=== PATIENT | female | born 1935 | race Caucasian/White ===

== ENCOUNTER 2023-11-30 20:18 | Inpatient (IN) | payer MEDICARE, OTHER, SELFPAY ==
[2023-11-30 20:20] VITALS: BP 102/52; PULSE 73; RESP 18; TEMP 36.6; O2SAT 99
[2023-11-30 20:27] VITALS: BP 102/52; PULSE 73; RESP 18; TEMP 36.6; O2SAT 99; BMI 26.7
--- OUTSIDE RECORDS SUMMARY | 2023-11-30 21:37 | XMS RPT_ITS | CCD ---
Author Name Unknown Address [address] [place] [address] Organization [facility] Care Team Providers [facility] [employer] Name Role Phone EREN GARCIA Attending Unavailable Nigel Frye Primary Care Provider Nigel Frye Primary Care Provider Nigel Frye MD Primary Care Provid er Nigel Frye MD Primary Care Provid er Nigel Frye MD Primary Care Provider [phone] Nigel Frye MD Primary Care Provider [phone] Delonte Mandujano MD Primary Care Provider Nigel Frye MD Primary Care Provider [phone] LAURA CROWE Attending Unavailable NIGEL FRYE Primary Care Unavailable DELONTE MANDUJANO Attending Unavailable DELONTE MANDUJANO Primary Care Unavailable NIGEL FRYE Attending Unavailable NIGEL FRYE Primary Care Unavailable LUIS A KISER Referring Unavailable NIGEL FRYE Primary Care Unavailable NIGEL FRYE Primary Care Unavailable LUIS A KISER Attending Unavailable Allergies Allergy Classification Reported Allergen(s) Allergy Type Date of Onset Reaction(s) Facility (6 sources) Sulfonamides (Antibiotic) Propensity to adverse reactions to drug 5 [place], [place] (10 sources) Sulfasalazine Allergy to substance 5 Rash [facility] (10 sources) Sulfonamides (Antibiotic) Drug Intolerance 5 Rash, Swelling [facility] Medications Current Medications Medication Drug Class(es) Dates Sig (Normalized) Sig (Original) calcium carbonate 500 mg oral tablet (6 sources) take 1 tablet by analia th once daily calcium carbonate (OSCAL) 500 MG TABS tablet Take 500 mg by mouth daily 0 Active Completed/Discontinued Medications Medication Drug Class(es) Dates Sig (Normalized) Sig (Original) aspirin 81 mg chewable tablet (1 source) Platelet Aggregation Inhibitor, Nonsteroidal Anti-inflammatory Drug Start: 06-07-2023 End: 06-07-2023 aspirin chewable tablet 324 mg atorvastatin 40 mg oral tablet (18 sources) HMG-CoA Reductase Inhibitor Start: 03-12-2023 End: 06-11-2023 take 1 tablet by mouth once daily atorvastatin (Lipitor) 40 MG tablet Take 40 mg by mouth daily. 0 03/12/2023 06/11/2023 Discontinued (Med list cleanup) Problems Active Problems Problem Classification Problem Date Documented Date Episodic/Chronic Administrative/social admission (1 source) Patient encounter status; Translations: [Persons encountering health services in other specified circumstances] 06-11-2023 Episodic Diabetes mellitus with complications (11 sources) Neuropathy due to type 2 diabetes mellitus; Translations: [Type 2 diabetes mellitus with diabetic neuropathy, unspecified] Onset: 03-26-2023 03-26-2023 Chronic Disorders of lipid metabolism (14 sources) Hyperlipidemia; Translations: [Hyperlipidemia, unspecified] Onset: 06-11-2023 06-11-2023 Chronic E Codes: Fall (1 source) Fall; Translations: [Unspecified fall, initial encounter] Episodic Glaucoma (9 sources) Glaucoma; Translations: [Unspecified glaucoma] Onset: 06-11-2023 06-11-2023 Chronic Hypertension with complications and secondary hypertension (3 sources) Chronic kidney disease due to hypertension; Translations: [Hypertensive chronic kidney disease with stage 1 through stage 4 chronic kidney disease, or unspecified chronic kidney disease] Onset: 03-26-2023 03-26-2023 Chronic Nonmalignant breast conditions (17 sources) Fibrosclerosis of breast; Translations: [Fibrosclerosis of unspecified breast] Onset: 11-01-2015 11-01-2015 Chronic Other injuries and conditions due to external causes (1 source) Injury of head; Translations: [Unspecified injury of head, initial encounter] Episodic Other liver diseases (4 sources) Portal hypertension; Translations: [Portal hypertension] Onset: 06-30-2023 06-30-2023 Chronic Residual codes; unclassified (1 source) Edema of foot; Translations: [Localized edema] 06-07-2023 Episodic Residual codes; unclassified (1 source) Dependent edema; Translations: [Edema, unspecified] 06-11-2023 Episodic Sprains and strains (1 source) Sprain of talofibular ligament of right ankle; Translations: [Sprain of other ligament of right ankle, initial encounter] Episodic Thyroid disorders (14 sources) Acquired hypothyroidism; Translations: [Hypothyroidism, unspecified] Onset: 06-11-2023 06-11-2023 Chronic Past or Other Problems Problem Classification Problem Date Documented Da te Episodic/Chronic Residual codes; unclassified (2 sources) Edema, unspecified; Translations: [Edema, unspecified] Onset: 06-11-2023 Episodic Residual codes; unclassified (2 sources) Localized edema; Translations: [Localized edema] Onset: 06-07-2023 Episodic Results Test Name Value Interpretation Reference Range Facil ity Vital Signs Date Time Vital Sign Value Performing Clinician Faci lity 06-30-2023 13:48-0400 Body height 157.5 cm Delonte Mandujano MD Work Phone: [employer] 06-30-2023 13:48-0400 Body mass index (BMI) [Ratio] 21.62 kg/m2 Delonte Mandujano MD Work Phone: [employer] 06-30-2023 13:48-0400 Body weight 53.62 kg Delonte Mandujano MD Work Phone: [employer] 06-30-2023 13:48-0400 Diastolic blood pressure 66 mm[Hg] Delonte Mandujano MD Work Phone: [employer] 06-30-2023 13:48-0400 Heart rate 75 /min Delonte Mandujano MD Work Phone: [employer] 06-30-2023 13:48-0400 SaO2% (BldA) [Mass fraction] 96 % Delonte Mandujano MD Work Phone: [employer] 06-30-2023 13:48-0400 Systolic blood pressure 121 mm[Hg] Delonte Mandujano MD Work Phone: [employer] 06-11-2023 09:19-0400 Body height 157.5 cm Laura Crowe USED [employer] WORK[employer] - [employer]ER Work Phone: [facility] [employer] 06-11-2023 09:19-0400 Body mass index (BMI) [Ratio] 20.67 kg/m2 Laura Crowe USED [employer]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[employer]ARD WORKER - [employer] FE[employer] Work Phone: [facility] [employer] 06-11-2023 09:19-0400 Body weight 51.26 kg Laura Crowe USED [employer]ARD WORKER - [employer]ER Work Phone: [facility] [employer] 06-11-2023 09:19-0400 Diastolic blood pressure 64 mm[Hg] Laura Crowe USED [employer] WORKER - [employer] FE[employer]ER Work Phone: [facility] [employer] 06-11-2023 09:19-0400 Heart rate 78 /min Laura Crowe USED BUILD[employer]ARD WORKER - [employer] FEEDER Work Phone: [facility] [employer] 06-11-2023 09:19-0400 SaO2% (BldA) [Mass fraction] 98 % Laura Crowe USED [employer]ARD WORKER - [employer]ER Work Phone: [facility] [employer] 06-11-2023 09:19-0400 Systolic blood pressure 122 mm[Hg] Laura Crowe USED [employer] WORKER - [employer]ER Work Phone: [facility] [employer] 06-07-2023 16:53-0400 Body temperature 97.81 [degF] Luis A Kiser MD Work Phone: [facility] [employer] 06-07-2023 16:53-0400 Diastolic blood pressure 55 mm[Hg] Luis A Kiser MD Work Phone: [facility] [employer] 06-07-2023 16:53-0400 Heart rate 77 /min Luis A Kiser MD Work Phone: [facility] [employer] 06-07-2023 16:53-0400 Respiratory rate 18 /min Luis A Kiser MD Work Phone: [facility] [employer] 06-07-2023 16:53-0400 SaO2% (BldA) [Mass fraction] 97 % Luis A Kiser MD Work Phone: [facility] [employer] 07-10-2023 16:53-0400 Systolic blood pressure 140 mm[Hg] Luis A Kiser MD Work Phone: [facility] 06-16-2022 12:24-0400 Diastolic blood pressure 59 mm[Hg] Cesar Gellis DO Work Phone: [facility] 06-16-2022 12:24-0400 Heart rate 66 /min Cesar Gellis DO Work Phone: [facility] 06-16-2022 12:24-0400 Respiratory rate 16 /min Cesar Gellis DO Work Phone: [facility] 06-16-2022 12:24-0400 SaO2% (BldA) [Mass fraction] 98 % Cesar Joneslis DO Work Phone: [facility] 06-16-2022 12:24-0400 Systolic blood pressure 120 mm[Hg] Cesar Gellis DO Work Phone: [facility] 06-16-2022 12:03-0400 Body temperature 97.39 [degF] Cesar Joneslis DO Work Phone: [facility] 11-16-2021 18:28-0500 Body height 154.9 cm Mark Saravia MD Work Phone: [facility] 11-16-2021 18:28-0500 Body mass index (BMI) [Ratio] 26.45 kg/m2 Mark Saravia MD Work Phone: [facility] 11-16-2021 18:28-0500 Body temperature 98.4 [degF] Mark Saravia MD Work Phone: [facility] 11-16-2021 18:28-0500 Body weight 63.5 kg Mark Saravia MD Work Phone: [facility] 11-16-2021 18:28-0500 Diastolic blood pressure 64 mm[Hg] Mark Saravia MD Work Phone: [facility] 11-16-2021 18:28-0500 Heart rate 80 /min Mark Saravia MD Work Phone: [facility] 11-16-2021 18:28-0500 Respiratory rate 20 /min Mark Saravia MD Work Phone: [facility] 11-16-2021 18:28-0500 SaO2% (BldA) [Mass fraction] 100 % Mark Saravia MD Work Phone: [facility] 11-16-2021 18:28-0500 Systolic blood pressure 149 mm[Hg] Mark Saravia MD Work Phone: [facility] Encounters Encounter Date Encounter Type Care Provider Facility Start: 11-18-2023 Refill Delonte Mandujano MD Work Phone: [facility] Start: 09-08-2023 Refill Delonte Mandujano MD Work Phone: [facility] Start: 06-30-2023 End: 06-30-2023 ambulatory [facility] Start: 06-30-2023 End: 06-30-2023 Encounter for general adult medical examination without abnormal findings [facility] Start: 06-30-2023 End: 06-30-2023 Office outpatient visit 25 minutes Delonte Mandujano MD Work Phone: [facility] Procedures Date Procedure Procedure Detail Performing Clinician Start: 06-29-2023 Adult depression screening assessment Delonte Mandujano MD Work Phone: Start: 06-07-2023 Dup-scan xtr veins complete bilateral study Luis A Kiser MD Work Phone: Start: 06-07-2023 Urinalysis complete panel - Urine Luis A Kiser MD Work Phone: Start: 06-07-2023 Urnls dip stick/tabl et reagent auto microscopy Luis A Kiser MD Work Phone: Start: 06-07-2023 Ecg routine ecg w/le ast 12 lds trcg only w/o i&r Luis A Kiser MD Work Phone: Start: 03-26-2023 Complete blood count with white cell differential, automated Nigel Frye MD Work Phone: Start: 03-26-2023 End: 03-26-2023 General health panel Nigel Frye MD Work Phone: Start: 03-26-2023 Lipid panel Nigel balderas MD Work Phone: Start: 03-26-2023 Lipid 1996 panel - S tiana or Plasma [facility] Start: 03-26-2023 End: 03-26-2023 Thyrotropin [Units/volume] in Serum or Plasma Nigel Frye MD Work Phone: Start: 06-16-2022 [facility] ENDOSCOPY REPORT Phy sician Generic Start: 05-20-2022 Assay of ferritin Layton macias Karenbirdie DO Work Phone: Start: 05-20-2022 Hepatic function panel Cesarjack Rothman DO Work Phone: Start: 05-20-2022 Iaad ia hepatitis b surface antigen Cesar Jonesbirdie DO Work Phone: Start: 11-16-2021 Radex ankle complete minimum 3 views Mark Saravia MD Work Phone: Start: 09-13-2019 Us breast uni real t antony with image limited Iker Diaz Work Phone: Start: 09-13-2019 Diagnostic mammograp hy computer-aided detcj bi Iker Diaz Work Phone: Plan of Treatment Date Care Activity Detail Author Start: 07-10-2024 End: 07-10-2024 Patient encounter procedure 07/10/2024 1:30 PM EDT Office Visit [facility] [address] [facility] [place] [id number] Delonte Mandujano MD [address] [facility] [place] [address] [facility] Start: 08-01-2024 COVID-19 Vaccine (4 - Booster for Moderna series) COVID-19 Vaccine (4 - Booster for Moderna series) [facility] Immunizations Immunization Date Immunization Notes Care Provider Fa marilee 09-21-2022 influenza, high dose seasonal, preservative-free Delonte Mandujano MD Work Phone: [facility] 09-21-2022 influenza virus vacc ine, unspecified formulation Luis A Kiser MD Work Phone: [facility] 08-29-2021 Influenza, Seasonal, Quadrivalent, Adjuvanted Delonte Mandujano MD Work Phone: [facility] 08-18-2020 influenza, injectabl e, quadrivalent, preservative free Delonte Mandujano MD Work Phone: [facility] 09-15-2019 influenza, high dose seasonal, preservative-free Delonte Mandujano MD Work Phone: [facility] 08-19-2018 influenza, high dose seasonal, preservative-free Delonte Mandujano MD Work Phone: [facility] 08-05-2017 influenza, high dose seasonal, preservative-free Delonte Mandujano MD Work Phone: [facility] 10-02-2016 influenza, high dose seasonal, preservative-free Delonte Mandujano MD Work Phone: [facility] 10-03-2015 influenza, high dose seasonal, preservative-free Delonte Mandujano MD Work Phone: [facility] Payers Date Payer Category Payer Unknown [employer] [place] LOCAL [address] [facility] [id number] 2022-Present [address] [place] [address] Commercial [id number] 2022 Unknown [id number] 2015 Medicare MEDICARE MEDICAR E PART A AND B [id number] 2015-Present [phone] [address] [address] [place] [address] [id number] 2015 Medicare MEDICARE MEDICAR E PART A AND B xxxxxxxxxx 2015-Present [phone] [place] [address] xxxxxxxxxx [id number] 2014 Unknown [id number] 2014 Unknown [employer] xxxxxxxxx 2014-Present [address] [facility] [facility] [address] xxxxxxxxx [id number] 2002 Medicare MEDICARE MEDICAR E PART A AND B [id number] 2002-Present [address] [place] [address] Medicare [id number] 2002 Medicare [id number] Social History Date Type Detail Facility Start: 03-11-2018 Tobacco smoking stat [facility] Never smoker [facility] Start: 03-11-2018 Tobacco use and exposure Never used [facility] [employer] [place] Start: 03-11-2018 End: 06-30-2023 Alcohol intake Current non-drinker of alcohol (finding) [place], [place] Start: 1935 Sex Assigned At Not on file [place], [place] Start: 03-11-2018 End: 06-29-2023 Alcohol intake No [place], [place] Start: 03-16-2023 End: 06-30-2023 Exposure to SARS-CoV-2 (event) Not sure [facility] Work Phone: Start: 11-12-2022 End: 06-29-2023 History of Social function [facility] Frequency of Alcohol Consumption Not on file [facility] (I/We) worried wheth er (my/our) food would run out before (I/we) got money to buy more. Never true [facility] [employer] In the past 12 month s, was there a time when you were not able to pay the mortgage or rent on time? No [facility] Medical Equipment Procedure Code Equipment Code Equipment Origin al Text Equipment Identifier Dates use to TEST BLOO D SUGAR once daily as directed [id number] Start: 10-10-2022 End: 06-11-2023 Clinical Notes 11-16-2021 to 11-18-2023 Telephone Encounter - Letty Mclaughlin - 11/18/2023 10:35 AM ESTTelephone Encounter - Letty Mclaughlin - 11/18/2023 10:35 AM ESTTelephone Encounter - Sav Pena LPN - 09/08/2023 10:19 AM EDT Note Date & Type Note Facility 11-18-2023 Telephone encounter Note Prescription Request: Last medication check: 06/11/23 Last physical exam: 06/30/23 Next scheduled appointment: 01/17/24 Last date of refill on this medication 09/08/23 [facility] 11-18-2023 Miscellaneous Notes Prescription Request: Last medication check: 06/11/23 Last physical exam: 06/30/23 Next scheduled appointment: 01/17/24 Last date of refill on this medication 09/08/23 documented in this encounter [facility] 09-08-2023 Telephone encounter Note Prescription Request: Last medication check: 06/11/23 Last physical exam: 06/30/23 Next scheduled appointment: 01/17/24 Last date of refill on this medication 07/09/23 #30 1 refill [facility] 09-08-2023 Miscellaneous Notes Prescription Request: Last medication check: 06/11/23 Last physical exam: 06/30/23 Next scheduled appointment: 01/17/24 Last date of refill on this medication 07/09/23 #30 1 refill documented in this encounter [facility] 06-30-2023 Evaluation + Plan note Associated Problem(s): Hyperlipidemia Controlled, continue atorvastatin 40 mg daily [facility] 06-30-2023 Miscellaneous Notes Associated Problem(s): Hyperlipidemia Controlled, continue atorvastatin 40 mg daily Associated Problem(s): 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 [facility] 06-30-2023 Evaluation + Plan note Associated Problem(s): Acquired hypothyroidism Controlled, continue levothyroxine 25 mcg daily [facility] 06-30-2023 History of Presen t illness Narrative Patient verified by last name and date of . Images from the original note were not included. 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 Other Hyperlipidemia Controlled, continue atorvastatin 40 mg daily Other Visit Diagnoses Medicare annual wellness visit, subsequent - Primary Follow up in about 6 months (around 12/31/2023). Jammie Waddell comes in today for her annual Medicare well visit, is also here for follow-up on her diabetes with retinopathy, hypothyroidism and hyperlipidemia. She had lab work done in February which was all good and she was in the emergency room a month or so ago worried about swelling around her ankle which seems to be nonexistent today although she is convinced she has swelling. She denies any other complaints at this time, see ROS. I have reviewed and reconciled the medication list with the patient today. Current Outpatient Medications Medication Sig Dispense Refill atorvastatin (Lipitor) 40 MG tablet Every 24 hours. brimonidine-timolol (Combigan) 0.2-0.5 % ophthalmic solution every 12 hours. docusate sodium (Colace) 100 MG tablet 1-2 tab(s) orally once a day at bedtime as needed Elastic Bandages & Supports (Medical Compression Stockings) misc 2 each daily. 15-20 mmHg 2 each 0 furosemide (Lasix) 20 MG tablet Take 1 tablet (20 mg) by mouth Daily as needed (swelling). 30 tablet 0 latanoprost (Xalatan) 0.005 % ophthalmic solution instill 1 drop into left eye every evening levothyroxine (Synthroid, Levoxyl) 25 MCG tablet Take 25 mcg by mouth daily. pyridoxine (B-6) 100 MG tablet Take 100 mg by mouth daily. spironolactone (Aldactone) 50 MG tablet Every 24 hours. No current facility-administered medications for this visit. Medications Discontinued During This Encounter Medication Reason ergocalciferol (Vitamin D-2) 1.25 MG (92086 UT) capsule Med list cleanup List of current healthcare providers: Patient Care Team: Delonte Mandujano MD as PCP - General (Family Medicine) The following health maintenance schedule was reviewed with the patient and provided in printed form in the after visit summary: Health Maintenance Topic Date Due Medicare Annual Wellness (AWV) Never done Influenza Vaccine (1) 07/30/2023 DTaP/Tdap/Td Vaccines (1 - Tdap) 06/29/2024 (Originally 1954) Hepatitis B Vaccines (1 of 3 - Risk 3-dose series) 06/29/2024 (Originally 1997) Hepatitis A Vaccines (1 of 2 - Risk 2-dose series) 06/29/2024 (Originally 1954) Pneumococcal Vaccine: 65+ Years (1 - PCV) 06/29/2024 (Originally 1941) Zoster Vaccines (1 of 2) 06/29/2024 (Originally 1987) Bone Density Scan 06/29/2024 (Originally 1935) COVID-19 Vaccine (4 - Booster for Moderna series) 06/29/2024 (Originally 02/04/2022) TSH Level 03/26/2024 Depression Screening 06/29/2024 HIB Vaccines Aged Out IPV Vaccines Aged Out Meningococcal Vaccine Aged Out Rotavirus Vaccines Aged Out HPV Vaccines Aged Out No orders of the defined types were placed in this encounter. Health Risk Assessment: General In general, how would you say your health is?: (!) Fair In the past 7 days, have you experienced any of the following: New or Increased Pain, New or Increased Fatigue, Loneliness, Social Isolation, Stress or Anger?: No Do you get the social and emotional suppport you need?: Yes Interventions: Poor self-assessment of health status: Patient declines any further evaluation / treatment for this issue. Health Habits / Nutrition On average, how many days per week do you engage in moderate to strenous exercise (like a brisk walk)?: (!) 0 days On average, how man minutes do you engage in exercise at this level?: (!) 0 min Have you lost any weight without trying in the past 3 months? : Yes Have you seen the dentist within the past year?: (!) No Interventions: Dental exam overdue: Patient declines dental evaluation and has denture Hearing / Vision Do you or your family notice any trouble with your hearing that hasn't been managed with hearing aids?: (!) Yes Do you have difficulty driving, watching TV, or doing any of your daily activities because of your eyesight?: (!) Yes Have you had an eye exam within the past year?: Yes No results found. Interventions: Safety Do you have a working smoke detector?: Yes Do you have any tripping hazards - loose or unsecured carpets or rugs?: No Do you have any tripping hazards - clutter in doorways, halls, or stairs?: No Do you have either shower bars, grab bars, non-slip mats or non-slip surfaces in your shower or bathtub? : (!) No Do all your stairways have a railing or banister? : Not Applicable Do you fasten your seatbelt when you are in a car?: Yes Interventions: Home safety tips provided ADL In the past 7 days, did you need help from others to perform any of the following everyday activities: Eating, dressing, grooming,bathing, toileting, or walking / balance? : (!) Yes Select all that apply: Walking / Balance In the past 7 days, did you need help from others to take care of any of the following: laundry, housekeeping, banking / finances,shopping, telephone use, food preparation, transportation, or taking medications? : Yes Select all that apply: Transportation, Banking / Finances, Shopping Interventions: Patient declines any further evaluation / treatment for this issue Living Will Do you have a living will?: Yes Interventions: Advance Care Planning addressed with patient today Cognitive: Cognitive Screening: Mini-Cog Clock Drawing Test (CDT): (can not see well enough to draw.) Words Recalled: 2 Total Score Interpretation: Abnormal Mini-Cog Interventions: Fall Risk: Interventions: No falls Depression Screening: Over the past 2 weeks, how often have you been bothered by any of the following problems? Little interest or pleasure in doing things: Not at all Feeling down, depressed, or hopeless: More than half the days Patient Health Questionnaire-2 Score: 2 If you checked off any problems on this questionnaire so far, How difficult have these problems made it for you to do your work, take care of things at home, or get along with other people?: Not difficult at all Interventions: Tobacco Use: Social History Tobacco Use Smoking Status Never Smokeless Tobacco Never Interventions: Alcohol Use: Audit Alcohol Screening Q2: How many drinks containing alcohol do you have on a typical day when you are drinking?: Patient does not drink Interventions: Drug Use: Drug Abuse Screening Test (DAST-10) Have you used drugs other than those required for medical reasons?: No Interventions: Review of Systems Constitutional: Negative for chills and fever. Respiratory: Negative for shortness of breath. Cardiovascular: Negative for chest pain and palpitations. Gastrointestinal: Negative for abdominal pain, blood in stool, constipation and diarrhea. Genitourinary: Negative for dyspareunia, dysuria, frequency, hematuria and urgency. Neurological: Negative for weakness and numbness. Psychiatric/Behavioral: Positive for dysphoric mood. The patient is not nervous/anxious. Immunization History Administered Date(s) Administered Influenza, High Dose Seasonal, Preservative Free 10/03/2015, 10/02/2016, 08/05/2017, 08/19/2018, 09/15/2019, 09/21/2022 Influenza, Seasonal, Quadrivalent, Adjuvanted 08/29/2021 Influenza, injectable, quadrivalent, preservative free 08/18/2020 Moderna SARS-CoV-2 Vaccination 02/20/2021, 03/20/2021, 12/10/2021 Allergies Allergen Reactions Sulfa Antibiotics Rash and Swelling Other reaction(s): Rash and Swelling Also causes swelling of her hands Sulfasalazine Rash Also causes swelling of her hands Outpatient Medications Prior to Visit Medication Sig Dispense Refill atorvastatin (Lipitor) 40 MG tablet Every 24 hours. brimonidine-timolol (Combigan) 0.2-0.5 % ophthalmic solution every 12 hours. docusate sodium (Colace) 100 MG tablet 1-2 tab(s) orally once a day at bedtime as needed Elastic Bandages & Supports (Medical Compression Stockings) misc 2 each daily. 15-20 mmHg 2 each 0 furosemide (Lasix) 20 MG tablet Take 1 tablet (20 mg) by mouth Daily as needed (swelling). 30 tablet 0 latanoprost (Xalatan) 0.005 % ophthalmic solution instill 1 drop into left eye every evening levothyroxine (Synthroid, Levoxyl) 25 MCG tablet Take 25 mcg by mouth daily. pyridoxine (B-6) 100 MG tablet Take 100 mg by mouth daily. spironolactone (Aldactone) 50 MG tablet Every 24 hours. ergocalciferol (Vitamin D-2) 1.25 MG (46501 UT) capsule Take by mouth 1 (one) time per week. No facility-administered medications prior to visit. Past Medical History: Diagnosis Date Dermatitis Diabetes (HCC) Esophageal varices (HCC) Hyperlipidemia Hypertension IBS (irritable bowel syndrome) CARPENTER (nonalcoholic steatohepatitis) Osteoarthritis Social History Socioeconomic History Marital status: Tobacco Use Smoking status: Never Smokeless tobacco: Never Vaping Use Vaping Use: Never used Substance and Sexual Activity Alcohol use: No Drug use: No Sexual activity: Not Currently Social Determinants of Health Financial Resource Strain: Low Risk (06/29/2023) Overall Financial Resource Strain (CARDIA) Difficulty of Paying Living Expenses: Not hard at all Food Insecurity: No Food Insecurity (06/29/2023) Hunger Vital Sign Worried About Running Out of Food in the Last Year: Never true Ran Out of Food in the Last Year: Never true Transportation Needs: No Transportation Needs (06/29/2023) PRAPARE - Transportation Lack of Transportation (Medical): No Lack of Transportation (Non-Medical): No Physical Activity: Inactive (06/29/2023) Exercise Vital Sign Days of Exercise per Week: 0 days Minutes of Exercise per Session: 0 min Housing Stability: Low Risk (06/29/2023) Housing Stability Vital Sign Unable to Pay for Housing in the Last Year: No Number of Places Lived in the Last Year: 1 Unstable Housing in the Last Year: No Past Surgical History: Procedure Laterality Date CHOLECYSTECTOMY ESOPHAGOGASTRODUODENOSCOPY 06/16/2022 HYSTERECTOMY partial Past Surgical History: Procedure Laterality Date CHOLECYSTECTOMY ESOPHAGOGASTRODUODENOSCOPY 06/16/2022 HYSTERECTOMY partial Family History Problem Relation Name Age of Onset Stroke Mother Heart attack Father Throat cancer Maternal Grandmother Objective BP 121/66 Pulse 75 Ht 5' 2 (1.575 m) Wt 118 lb 3.2 oz (53.6 kg) SpO2 96% BMI 21.62 kg/m Physical Exam Vitals and nursing note reviewed. Constitutional: General: She is not in acute distress. Appearance: Normal appearance. HENT: Head: Normocephalic. Right Ear: Tympanic membrane, ear canal and external ear normal. Left Ear: Tympanic membrane, ear canal and external ear normal. Mouth/Throat: Mouth: Mucous membranes are moist. Pharynx: Oropharynx is clear. Eyes: Extraocular Movements: Extraocular movements intact. Pupils: Pupils are equal, round, and reactive to light. Neck: Vascular: No carotid bruit. Cardiovascular: Rate and Rhythm: Normal rate and regular rhythm. Heart sounds: Normal heart sounds. No murmur heard. Pulmonary: Effort: Pulmonary effort is normal. Breath sounds: Normal breath sounds. Abdominal: General: Bowel sounds are normal. Palpations: Abdomen is soft. Musculoskeletal: General: Normal range of motion. Cervical back: Normal range of motion. Lymphadenopathy: Cervical: No cervical adenopathy. Skin: General: Skin is warm and dry. Neurological: General: No focal deficit present. Mental Status: She is alert and oriented to person, place, and time. Psychiatric: Mood and Affect: Mood normal. Data Reviewed Labs: Imaging/Testing: Delonte Mandujano MD 06/30/2023 2:26 PM documented in this encounter [facility] 06-30-2023 History of Presen t illness Narrative Patient verified by last name and date of . Images from the original note were not included. 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 Other Hyperlipidemia Controlled, continue atorvastatin 40 mg daily Other Visit Diagnoses Medicare annual wellness visit, subsequent - Primary Follow up in about 6 months (around 12/31/2023). Jammie Waddell comes in today for her annual Medicare well visit, is also here for follow-up on her diabetes with retinopathy, hypothyroidism and hyperlipidemia. She had lab work done in February which was all good and she was in the emergency room a month or so ago worried about swelling around her ankle which seems to be nonexistent today although she is convinced she has swelling. She denies any other complaints at this time, see ROS. I have reviewed and reconciled the medication list with the patient today. Current Outpatient Medications Medication Sig Dispense Refill atorvastatin (Lipitor) 40 MG tablet Every 24 hours. brimonidine-timolol (Combigan) 0.2-0.5 % ophthalmic solution every 12 hours. docusate sodium (Colace) 100 MG tablet 1-2 tab(s) orally once a day at bedtime as needed Elastic Bandages & Supports (Medical Compression Stockings) misc 2 each daily. 15-20 mmHg 2 each 0 furosemide (Lasix) 20 MG tablet Take 1 tablet (20 mg) by mouth Daily as needed (swelling). 30 tablet 0 latanoprost (Xalatan) 0.005 % ophthalmic solution instill 1 drop into left eye every evening levothyroxine (Synthroid, Levoxyl) 25 MCG tablet Take 25 mcg by mouth daily. pyridoxine (B-6) 100 MG tablet Take 100 mg by mouth daily. spironolactone (Aldactone) 50 MG tablet Every 24 hours. No current facility-administered medications for this visit. Medications Discontinued During This Encounter Medication Reason ergocalciferol (Vitamin D-2) 1.25 MG (95581 UT) capsule Med list cleanup List of current healthcare providers: Patient Care Team: Delonte Mandujano MD as PCP - General (Family Medicine) The following health maintenance schedule was reviewed with the patient and provided in printed form in the after visit summary: Health Maintenance Topic Date Due Medicare Annual Wellness (AWV) Never done Influenza Vaccine (1) 07/30/2023 DTaP/Tdap/Td Vaccines (1 - Tdap) 06/29/2024 (Originally 1954) Hepatitis B Vaccines (1 of 3 - Risk 3-dose series) 06/29/2024 (Originally 1997) Hepatitis A Vaccines (1 of 2 - Risk 2-dose series) 06/29/2024 (Originally 1954) Pneumococcal Vaccine: 65+ Years (1 - PCV) 06/29/2024 (Originally 1943) Zoster Vaccines (1 of 2) 06/29/2024 (Originally 1987) Bone Density Scan 06/29/2024 (Originally 1937) COVID-19 Vaccine (4 - Booster for Moderna series) 06/29/2024 (Originally 02/04/2022) TSH Level 03/26/2024 Depression Screening 06/29/2024 HIB Vaccines Aged Out IPV Vaccines Aged Out Meningococcal Vaccine Aged Out Rotavirus Vaccines Aged Out HPV Vaccines Aged Out No orders of the defined types were placed in this encounter. Health Risk Assessment: General In general, how would you say your health is?: (!) Fair In the past 7 days, have you experienced any of the following: New or Increased Pain, New or Increased Fatigue, Loneliness, Social Isolation, Stress or Anger?: No Do you get the social and emotional suppport you need?: Yes Interventions: Poor self-assessment of health status: Patient declines any further evaluation / treatment for this issue. Health Habits / Nutrition On average, how many days per week do you engage in moderate to strenous exercise (like a brisk walk)?: (!) 0 days On average, how man minutes do you engage in exercise at this level?: (!) 0 min Have you lost any weight without trying in the past 3 months? : Yes Have you seen the dentist within the past year?: (!) No Interventions: Dental exam overdue: Patient declines dental evaluation and has denture Hearing / Vision Do you or your family notice any trouble with your hearing that hasn't been managed with hearing aids?: (!) Yes Do you have difficulty driving, watching TV, or doing any of your daily activities because of your eyesight?: (!) Yes Have you had an eye exam within the past year?: Yes No results found. Interventions: Safety Do you have a working smoke detector?: Yes Do you have any tripping hazards - loose or unsecured carpets or rugs?: No Do you have any tripping hazards - clutter in doorways, halls, or stairs?: No Do you have either shower bars, grab bars, non-slip mats or non-slip surfaces in your shower or bathtub? : (!) No Do all your stairways have a railing or banister? : Not Applicable Do you fasten your seatbelt when you are in a car?: Yes Interventions: Home safety tips provided ADL In the past 7 days, did you need help from others to perform any of the following everyday activities: Eating, dressing, grooming,bathing, toileting, or walking / balance? : (!) Yes Select all that apply: Walking / Balance In the past 7 days, did you need help from others to take care of any of the following: laundry, housekeeping, banking / finances,shopping, telephone use, food preparation, transportation, or taking medications? : Yes Select all that apply: Transportation, Banking / Finances, Shopping Interventions: Patient declines any further evaluation / treatment for this issue Living Will Do you have a living will?: Yes Interventions: Advance Care Planning addressed with patient today Cognitive: Cognitive Screening: Mini-Cog Clock Drawing Test (CDT): (can not see well enough to draw.) Words Recalled: 2 Total Score Interpretation: Abnormal Mini-Cog Interventions: Fall Risk: Interventions: No falls Depression Screening: Over the past 2 weeks, how often have you been bothered by any of the following problems? Little interest or pleasure in doing things: Not at all Feeling down, depressed, or hopeless: More than half the days Patient Health Questionnaire-2 Score: 2 If you checked off any problems on this questionnaire so far, How difficult have these problems made it for you to do your work, take care of things at home, or get along with other people?: Not difficult at all Interventions: Tobacco Use: Social History Tobacco Use Smoking Status Never Smokeless Tobacco Never Interventions: Alcohol Use: Audit Alcohol Screening Q2: How many drinks containing alcohol do you have on a typical day when you are drinking?: Patient does not drink Interventions: Drug Use: Drug Abuse Screening Test (DAST-10) Have you used drugs other than those required for medical reasons?: No Interventions: Review of Systems Constitutional: Negative for chills and fever. Respiratory: Negative for shortness of breath. Cardiovascular: Negative for chest pain and palpitations. Gastrointestinal: Negative for abdominal pain, blood in stool, constipation and diarrhea. Genitourinary: Negative for dyspareunia, dysuria, frequency, hematuria and urgency. Neurological: Negative for weakness and numbness. Psychiatric/Behavioral: Positive for dysphoric mood. The patient is not nervous/anxious. Immunization History Administered Date(s) Administered Influenza, High Dose Seasonal, Preservative Free 10/03/2015, 10/02/2016, 08/05/2017, 08/19/2018, 09/15/2019, 09/21/2022 Influenza, Seasonal, Quadrivalent, Adjuvanted 08/29/2021 Influenza, injectable, quadrivalent, preservative free 08/18/2020 Moderna SARS-CoV-2 Vaccination 02/20/2021, 03/20/2021, 12/10/2021 Allergies Allergen Reactions Sulfa Antibiotics Rash and Swelling Other reaction(s): Rash and Swelling Also causes swelling of her hands Sulfasalazine Rash Also causes swelling of her hands Outpatient Medications Prior to Visit Medication Sig Dispense Refill atorvastatin (Lipitor) 40 MG tablet Every 24 hours. brimonidine-timolol (Combigan) 0.2-0.5 % ophthalmic solution every 12 hours. docusate sodium (Colace) 100 MG tablet 1-2 tab(s) orally once a day at bedtime as needed Elastic Bandages & Supports (Medical Compression Stockings) misc 2 each daily. 15-20 mmHg 2 each 0 furosemide (Lasix) 20 MG tablet Take 1 tablet (20 mg) by mouth Daily as needed (swelling). 30 tablet 0 latanoprost (Xalatan) 0.005 % ophthalmic solution instill 1 drop into left eye every evening levothyroxine (Synthroid, Levoxyl) 25 MCG tablet Take 25 mcg by mouth daily. pyridoxine (B-6) 100 MG tablet Take 100 mg by mouth daily. spironolactone (Aldactone) 50 MG tablet Every 24 hours. ergocalciferol (Vitamin D-2) 1.25 MG (34927 UT) capsule Take by mouth 1 (one) time per week. No facility-administered medications prior to visit. Past Medical History: Diagnosis Date Dermatitis Diabetes (HCC) Esophageal varices (HCC) Hyperlipidemia Hypertension IBS (irritable bowel syndrome) CARPENTER (nonalcoholic steatohepatitis) Osteoarthritis Social History Socioeconomic History Marital status: Tobacco Use Smoking status: Never Smokeless tobacco: Never Vaping Use Vaping Use: Never used Substance and Sexual Activity Alcohol use: No Drug use: No Sexual activity: Not Currently Social Determinants of Health Financial Resource Strain: Low Risk (06/29/2023) Overall Financial Resource Strain (CARDIA) Difficulty of Paying Living Expenses: Not hard at all Food Insecurity: No Food Insecurity (06/29/2023) Hunger Vital Sign Worried About Running Out of Food in the Last Year: Never true Ran Out of Food in the Last Year: Never true Transportation Needs: No Transportation Needs (06/29/2023) PRAPARE - Transportation Lack of Transportation (Medical): No Lack of Transportation (Non-Medical): No Physical Activity: Inactive (06/29/2023) Exercise Vital Sign Days of Exercise per Week: 0 days Minutes of Exercise per Session: 0 min Housing Stability: Low Risk (06/29/2023) Housing Stability Vital Sign Unable to Pay for Housing in the Last Year: No Number of Places Lived in the Last Year: 1 Unstable Housing in the Last Year: No Past Surgical History: Procedure Laterality Date CHOLECYSTECTOMY ESOPHAGOGASTRODUODENOSCOPY 06/16/2022 HYSTERECTOMY partial Past Surgical History: Procedure Laterality Date CHOLECYSTECTOMY ESOPHAGOGASTRODUODENOSCOPY 06/16/2022 HYSTERECTOMY partial Family History Problem Relation Name Age of Onset Stroke Mother Heart attack Father Throat cancer Maternal Grandmother Objective BP 121/66 Pulse 75 Ht 5' 2 (1.575 m) Wt 118 lb 3.2 oz (53.6 kg) SpO2 96% BMI 21.62 kg/m Physical Exam Vitals and nursing note reviewed. Constitutional: General: She is not in acute distress. Appearance: Normal appearance. HENT: Head: Normocephalic. Right Ear: Tympanic membrane, ear canal and external ear normal. Left Ear: Tympanic membrane, ear canal and external ear normal. Mouth/Throat: Mouth: Mucous membranes are moist. Pharynx: Oropharynx is clear. Eyes: Extraocular Movements: Extraocular movements intact. Pupils: Pupils are equal, round, and reactive to light. Neck: Vascular: No carotid bruit. Cardiovascular: Rate and Rhythm: Normal rate and regular rhythm. Heart sounds: Normal heart sounds. No murmur heard. Pulmonary: Effort: Pulmonary effort is normal. Breath sounds: Normal breath sounds. Abdominal: General: Bowel sounds are normal. Palpations: Abdomen is soft. Musculoskeletal: General: Normal range of motion. Cervical back: Normal range of motion. Lymphadenopathy: Cervical: No cervical adenopathy. Skin: General: Skin is warm and dry. Neurological: General: No focal deficit present. Mental Status: She is alert and oriented to person, place, and time. Psychiatric: Mood and Affect: Mood normal. Data Reviewed Labs: Imaging/Testing: Delonte Mandujano MD 06/30/2023 2:26 PM documented in this encounter [facility] 06-30-2023 Note Addended by: DELONTE MANDUJANO on: 07/05/2023 05:30 AM Modules accepted: Level of Service [facility] 06-14-2023 Telephone encounter Note Notified Nadira. [facility] 06-14-2023 Miscellaneous Notes Notified Nadira. Rx sent for Lasix which she can take once daily as needed for swelling. Patient states she lives alone and doesn't think she can get one of the compression stockings on by herself so she needs something else to help with the swelling. I did not send a water pill in for her. I gave her a prescription for the compression stockings and encouraged her to keep her feet elevated when sitting down. At her visit she said the water pill they prescribed in the ED did not work/help. Name of caller: Nadira Contact phone number: [phone] Relationship to Patient: patient Provider: Dr. Mandujano Practice: [facility] Chief Complaint/Reason for Call: Patient states she believed the doctor sent in water pills for her at her last appointment and she never received them and called the pharmacy and the pharmacy doesn't have an order for them, and patient states she really needs the water pills. Please call and advise. Best time of day caller can be reached: AM Patient advised that office/PCP has 24-48 business hours to return their call: No documented in this encounter [facility] 06-14-2023 Telephone encounter Note Rx sent for Lasix which she can take once daily as needed for swelling. [facility] 06-14-2023 Telephone encounter Note Patient states she lives alone and doesn't think she can get one of the compression stockings on by herself so she needs something else to help with the swelling. [facility] 06-14-2023 Telephone encounter Note I did not send a water pill in for her. I gave her a prescription for the compression stockings and encouraged her to keep her feet elevated when sitting down. At her visit she said the water pill they prescribed in the ED did not work/help. [facility] 06-14-2023 Telephone encounter Note Name of caller: Ndaira Contact phone number: [phone] Relationship to Patient: patient Provider: Dr. Mandujano Practice: [facility] Chief Complaint/Reason for Call: Patient states she believed the doctor sent in water pills for her at her last appointment and she never received them and called the pharmacy and the pharmacy doesn't have an order for them, and patient states she really needs the water pills. Please call and advise. Best time of day caller can be reached: AM Patient advised that office/PCP has 24-48 business hours to return their call: No [employer] 06-11-2023 History of Presen t illness Narrative Images from the original note were not included. Patient Nadira Silva 87 y.o. female, presents today with Chief Complaint Patient presents with Establish Care ER Follow-up Pedal edema . HPI- Nadira Silva presents today to establish care and for follow up from an ER visit on 06/07/23 due to pedal edema. Previous PCP was Dr. Nigel Frye. Does follow up with other specialists - ophthalmology- Dr. Luis Felipe Heart. Was given a 3 day course of Lasix for the swelling and states it did not make a difference. Swelling improves over night when she is laying down to sleep. Just had blood work drawn at the end of February with stable findings so she does not need any repeated today. Past medical history is positive for: hypothyroid (taking Levothyroxine), hyperlipidemia (taking Atorvastatin), glaucoma (follows up with Dr. Heart and administers Combigan eye drops). Health Maintenance: Will sign for a release of records from previous PCP to see what she may be due for. See ROS for additional information. Past Medical History: Diagnosis Date Dermatitis Diabetes (HCC) Esophageal varices (HCC) Hyperlipidemia Hypertension IBS (irritable bowel syndrome) CARPENTER (nonalcoholic steatohepatitis) Osteoarthritis Past Surgical History: Procedure Laterality Date CHOLECYSTECTOMY ESOPHAGOGASTRODUODENOSCOPY 06/16/2022 HYSTERECTOMY partial Family History Problem Relation Name Age of Onset Stroke Mother Heart attack Father Throat cancer Maternal Grandmother Social History Socioeconomic History Marital status: Spouse name: Not on file Number of children: Not on file Years of education: Not on file Highest education level: Not on file Occupational History Not on file Tobacco Use Smoking status: Never Smokeless tobacco: Never Vaping Use Vaping Use: Never used Substance and Sexual Activity Alcohol use: No Drug use: No Sexual activity: Not on file Other Topics Concern Not on file Social History Narrative Not on file Social Determinants of Health Financial Resource Strain: Not on file Food Insecurity: Not on file Transportation Needs: Not on file Physical Activity: Not on file Stress: Not on file Social Connections: Not on file Intimate Partner Violence: Not on file Housing Stability: Not on file Health Maintenance Topic Date Due Medicare Annual Wellness (AWV) Never done Bone Density Scan Never done Pneumococcal Vaccine: 65+ Years (1 - PCV) Never done Depression Screening Never done DTaP/Tdap/Td Vaccines (1 - Tdap) Never done Hepatitis A Vaccines (1 of 2 - Risk 2-dose series) Never done Zoster Vaccines (1 of 2) Never done Hepatitis B Vaccines (1 of 3 - Risk 3-dose series) Never done COVID-19 Vaccine (4 - Booster for Moderna series) 02/04/2022 Influenza Vaccine (1) 07/30/2023 TSH Level 03/26/2024 HIB Vaccines Aged Out IPV Vaccines Aged Out Meningococcal Vaccine Aged Out Rotavirus Vaccines Aged Out HPV Vaccines Aged Out Allergies Allergen Reactions Sulfa Antibiotics Rash and Swelling Other reaction(s): Rash and Swelling Also causes swelling of her hands Sulfasalazine Rash Also causes swelling of her hands Review of Systems Constitutional: Negative for chills. Respiratory: Negative for chest tightness and shortness of breath. Cardiovascular: Positive for leg swelling. Negative for chest pain and palpitations. Gastrointestinal: Negative for abdominal distention and abdominal pain. BP 122/64 Pulse 78 Ht 5' 2 (1.575 m) Wt 113 lb (51.3 kg) SpO2 98% BMI 20.67 kg/m Physical Exam Constitutional: General: She is not in acute distress. Appearance: She is not ill-appearing or diaphoretic. Neck: Vascular: No carotid bruit. Cardiovascular: Rate and Rhythm: Normal rate and regular rhythm. Pulses: Normal pulses. Heart sounds: Normal heart sounds. No murmur heard. No friction rub. Comments: Vascular changes noted to BLE. Pulmonary: Effort: Pulmonary effort is normal. Breath sounds: Normal breath sounds. No wheezing, rhonchi or rales. Abdominal: General: Bowel sounds are normal. Palpations: Abdomen is soft. There is no mass. Tenderness: There is no abdominal tenderness. Musculoskeletal: Cervical back: Neck supple. Right lower leg: Edema (trace) present. Left lower leg: Edema (1+ pitting) present. Lymphadenopathy: Cervical: No cervical adenopathy. Skin: General: Skin is warm and dry. Neurological: Mental Status: She is alert and oriented to person, place, and time. Psychiatric: Mood and Affect: Mood normal. Behavior: Behavior normal. Thought Content: Thought content normal. Judgment: Judgment normal. Assessment & Plan: 1. Encounter to establish care - Will request records from previous PCP to update chart. 2. Dependent edema - Elastic Bandages & Supports (Medical Compression Stockings) misc; 2 each daily. 15-20 mmHg, Starting 06/11/2023, Print - Discussed keeping feet elevated as much as possible when sitting down at home. 3. Acquired hypothyroidism - Stable with Levothyroxine. Will continue current treatment plan. 4. Glaucoma, unspecified glaucoma type, unspecified laterality - Stable. Follow up with specialist as directed. 5. Hyperlipidemia, unspecified hyperlipidemia type - Stable with Atorvastatin. Will continue current treatment plan. Discussed use, benefit, and side effects of prescribed medications. Barriers to medication compliance addressed. All patient questions answered. Pt voiced understanding. Follow up in 19 days (on 06/30/2023) for Next scheduled follow-up (AWV). Outpatient Encounter Medications as of 06/11/2023 Medication Sig Dispense Refill atorvastatin (Lipitor) 40 MG tablet Every 24 hours. brimonidine-timolol (Combigan) 0.2-0.5 % ophthalmic solution every 12 hours. docusate sodium (Colace) 100 MG tablet 1-2 tab(s) orally once a day at bedtime as needed ergocalciferol (Vitamin D-2) 1.25 MG (21101 UT) capsule Take by mouth 1 (one) time per week. furosemide (Lasix) 20 MG tablet Take 1 tablet (20 mg) by mouth daily. 3 tablet 0 latanoprost (Xalatan) 0.005 % ophthalmic solution instill 1 drop into left eye every evening levothyroxine (Synthroid, Levoxyl) 25 MCG tablet Take 25 mcg by mouth daily. pyridoxine (B-6) 100 MG tablet Take 100 mg by mouth daily. spironolactone (Aldactone) 50 MG tablet Every 24 hours. [DISCONTINUED] OneTouch Ultra test strip use to TEST BLOOD SUGAR once daily as directed Elastic Bandages & Supports (Medical Compression Stockings) misc 2 each daily. 15-20 mmHg 2 each 0 [DISCONTINUED] Alpha tocopherol (Vitamin E) 200 units capsule Take 200 Units by mouth daily. [DISCONTINUED] atorvastatin (Lipitor) 40 MG tablet Take 40 mg by mouth daily. [DISCONTINUED] atropine 1 % ophthalmic solution instill 1 drop into right eye twice a day [DISCONTINUED] brimonidine-timolol (Combigan) 0.2-0.5 % ophthalmic solution instill 1 drop into left eye twice a day [DISCONTINUED] Bromfenac Sodium 0.075 % solution Administer 1 drop into affected eye(s) in the morning and 1 drop in the evening. [DISCONTINUED] calcium 500 MG tablet Take 500 mg by mouth daily. [DISCONTINUED] latanoprost (Xalatan) 0.005 % ophthalmic solution 1 gtt in each eye once a day (at bedtime) [DISCONTINUED] levothyroxine (Synthroid, Levoxyl) 25 MCG tablet Every 24 hours. [DISCONTINUED] magnesium oxide (Mag-Ox) 400 MG tablet Take 400 mg by mouth in the morning. [DISCONTINUED] mometasone (Elocon) 0.1 % ointment Apply topically. [DISCONTINUED] ofloxacin (Ocuflox) 0.3 % ophthalmic solution instill 1 drop into right eye four times a day [DISCONTINUED] prednisoLONE acetate (Pred-Forte) 1 % ophthalmic suspension instill 1 drop into right eye four times a day No facility-administered encounter medications on file as of 06/11/2023. ANDRAE Lopez CNP 06/11/2023 9:54 AM documented in this encounter [facility] 06-07-2023 Emergency department Note Triage notes and assessment reviewed with REDDY Alvarenga; acuity assigned. Katie Gross RN 06/07/231705 [facility] 06-07-2023 Emergency department Note Triage notes and assessment reviewed with REDDY Alvarenga; acuity assigned. Katie Gross RN 06/07/231705 EMERGENCY DEPARTMENT ENCOUNTER Pt Name: Nadira Silva Birthdate 1935 Date of evaluation: 06/07/2023 CHIEF COMPLAINT No chief complaint on file. HISTORY OF PRESENT ILLNESS HPI Nadira Silva is a 87 y.o. female who presents to the emergency department reporting leg swelling in both her legs left more than right. At baseline she is ambulating with a walker for at least 2 years. No fever. No numbness. No color change. No injury recently.no cp. No sob. REVIEW OF SYSTEMS Review of Systems CURRENT MEDICATIONS Previous Medications ALPHA TOCOPHEROL (VITAMIN E) 200 UNITS CAPSULE Take 200 Units by mouth daily. ATORVASTATIN (LIPITOR) 40 MG TABLET Every 24 hours. ATORVASTATIN (LIPITOR) 40 MG TABLET Take 40 mg by mouth daily. ATROPINE 1 % OPHTHALMIC SOLUTION instill 1 drop into right eye twice a day BRIMONIDINE-TIMOLOL (COMBIGAN) 0.2-0.5 % OPHTHALMIC SOLUTION every 12 hours. BRIMONIDINE-TIMOLOL (COMBIGAN) 0.2-0.5 % OPHTHALMIC SOLUTION instill 1 drop into left eye twice a day BROMFENAC SODIUM 0.075 % SOLUTION Administer 1 drop into affected eye(s) in the morning and 1 drop in the evening. CALCIUM 500 MG TABLET Take 500 mg by mouth daily. DOCUSATE SODIUM (COLACE) 100 MG TABLET 1-2 tab(s) orally once a day at bedtime as needed LATANOPROST (XALATAN) 0.005 % OPHTHALMIC SOLUTION 1 gtt in each eye once a day (at bedtime) LATANOPROST (XALATAN) 0.005 % OPHTHALMIC SOLUTION instill 1 drop into left eye every evening LEVOTHYROXINE (SYNTHROID, LEVOXYL) 25 MCG TABLET Take 25 mcg by mouth daily. LEVOTHYROXINE (SYNTHROID, LEVOXYL) 25 MCG TABLET Every 24 hours. MAGNESIUM OXIDE (MAG-OX) 400 MG TABLET Take 400 mg by mouth in the morning. MOMETASONE (ELOCON) 0.1 % OINTMENT Apply topically. OFLOXACIN (OCUFLOX) 0.3 % OPHTHALMIC SOLUTION instill 1 drop into right eye four times a day ONETOUCH ULTRA TEST STRIP use to TEST BLOOD SUGAR once daily as directed PREDNISOLONE ACETATE (PRED-FORTE) 1 % OPHTHALMIC SUSPENSION instill 1 drop into right eye four times a day PYRIDOXINE (B-6) 100 MG TABLET Take 100 mg by mouth daily. SPIRONOLACTONE (ALDACTONE) 50 MG TABLET Every 24 hours. ALLERGIES Sulfa antibiotics and Sulfasalazine FAMILY HISTORY Family History Problem Relation Name Age of Onset Stroke Mother Heart attack Father Throat cancer Maternal Grandmother SOCIAL HISTORY Social History Socioeconomic History Marital status: Tobacco Use Smoking status: Never Smokeless tobacco: Never Vaping Use Vaping Use: Never used Substance and Sexual Activity Alcohol use: No Drug use: No PHYSICAL EXAM Vitals: 06/07/23 1653 BP: (!) 140/55 BP Location: Right arm Patient Position: Lying Pulse: 77 Resp: 18 Temp: 36.6 C (97.8 F) TempSrc: Oral SpO2: 97% Physical Exam Vitals and nursing note reviewed. Constitutional: Appearance: Normal appearance. She is well-developed. She is not toxic-appearing. HENT: Head: Atraumatic. Mouth/Throat: Mouth: Mucous membranes are moist. Eyes: Conjunctiva/sclera: Conjunctivae normal. Cardiovascular: Rate and Rhythm: Normal rate and regular rhythm. Pulmonary: Effort: Pulmonary effort is normal. No respiratory distress. Breath sounds: No stridor. Abdominal: General: Abdomen is flat. There is no distension. Musculoskeletal: Cervical back: Normal range of motion. Left lower leg: Swelling present. Left ankle: Swelling present. Right foot: Swelling present. Left foot: Swelling present. Skin: General: Skin is warm and dry. Capillary Refill: Capillary refill takes less than 2 seconds. Coloration: Skin is not jaundiced. Neurological: Mental Status: She is alert. Mental status is at baseline. Sensory: Sensation is intact. Deep Tendon Reflexes: Reflexes are normal and symmetric. Psychiatric: Mood and Affect: Mood normal. Behavior: Behavior normal. Judgment: Judgment normal. SCREENINGS Medical decision making Medical Decision Making Problems Addressed: Pedal edema: complicated acute illness or injury Amount and/or Complexity of Data Reviewed Labs: ordered. Decision-making details documented in ED Course. ECG/medicine tests: ordered. Decision-making details documented in ED Course. Risk OTC drugs. Prescription drug management. DIAGNOSTIC RESULTS Procedures/EKG: Physician EKG interpretation can be found in [facility] if done RADIOLOGY (Per Emergency Physician): Interpretation per the Radiologist below, if available at the time of this note: Vascular US lower extremity venous duplex bilateral Final Result No evidence of left or right lower extremity deep venous thrombosis. This radiologist maintains RVT certification. Report Dictated on Electronically Signed By: Cesar Chan Electronically Signed Date/Time: 06/07/2023 6:42 PM EDT LABS: Labs Reviewed COMPLETE URINALYSIS - Abnormal Result Value Color, Urine Light Yellow Clarity, Urine Clear pH, Urine 5.5 Leukocytes, Urine 25 (*) Nitrite, Urine Negative Protein, Urine Negative Glucose, Urine 50 Bilirubin, Urine Negative Ketones, Urine Negative Urobilinogen, Urine Normal Blood, Urine Negative Volume, Urine 8-12 mL RBC, Urine Negative WBC, Urine 6-10 (*) Squamous Epithelial, Urine 3-5 Bacteria, Urine Many (*) SPECIFIC GRAVITY OF URINE (NUMERIC) 1.005 COMPLETE URINALYSIS WITH REFLEX TO CULTURE Narrative: The following orders were created for panel order Urinalysis complete with reflex to Culture. Procedure Abnormality Status --------- ------ Complete Urinalysis[[id number]] Abnormal Final result Please view results for these tests on the individual orders. Medications ordered: Medications aspirin chewable tablet 324 mg (324 mg Oral Given 06/07/23 173) ED Course as of 06/07/231901Jun 07, 2023 174 ECG 12 lead No arrythmia, no acute iscehmia [NM] 1815 Protein, Urine: Negative [NM] 1815 RBC, Urine: Negative [NM] 1901 Bilirubin, Urine: Negative [NM] ED Course User Index [NM] Luis A Kiser MD Diagnoses as of 06/07/231901 Pedal edema * No order type specified * Prior medical records were reviewed: cirrhosis of liver dx On spirinolactone Lasix trial for few d REVAL: CRITICAL CARE TIME CONSULTS: None PROCEDURES: Procedures FINAL IMPRESSION 1. Pedal edema DISPOSITION/PLAN DISPOSITION Discharge 06/07/2023 06:58:41 PM PATIENT REFERRED TO: MD [address] [facility] [id number] In 1 day Cesar Rothman DO [address] [facility] [id number] In 1 day I prescribed: New Prescriptions FUROSEMIDE (LASIX) 20 MG TABLET Take 1 tablet (20 mg) by mouth daily. (Comment: this report has been produced using speech recognition software and may contain errors related to that system including errors in grammar, punctuation, and spelling, as well as words and phrases that may be inappropriate) LUIS A KISER MD (electronically signed) Luis A Kiser MD 06/07/231901 Pt presents to the ED with leg pain and cramping that starts at knee and travels intermittently down to her foot. Pt was wheeled back to the unit by family. Pt family is at bedside and call light is within reach documented in this encounter [facility] 06-07-2023 Emergency department Triage note Pt presents to the ED with leg pain and cramping that starts at knee and travels intermittently down to her foot. Pt was wheeled back to the unit by family. Pt family is at bedside and call light is within reach [facility] 06-07-2023 Physician Emergency department Note EMERGENCY DEPARTMENT ENCOUNTER Pt Name: Nadira Silva Birthdate 1935 Date of evaluation: 06/07/2023 CHIEF COMPLAINT No chief complaint on file. HISTORY OF PRESENT ILLNESS HPI Nadira Silva is a 87 y.o. female who presents to the emergency department reporting leg swelling in both her legs left more than right. At baseline she is ambulating with a walker for at least 2 years. No fever. No numbness. No color change. No injury recently.no cp. No sob. REVIEW OF SYSTEMS Review of Systems CURRENT MEDICATIONS Previous Medications ALPHA TOCOPHEROL (VITAMIN E) 200 UNITS CAPSULE Take 200 Units by mouth daily. ATORVASTATIN (LIPITOR) 40 MG TABLET Every 24 hours. ATORVASTATIN (LIPITOR) 40 MG TABLET Take 40 mg by mouth daily. ATROPINE 1 % OPHTHALMIC SOLUTION instill 1 drop into right eye twice a day BRIMONIDINE-TIMOLOL (COMBIGAN) 0.2-0.5 % OPHTHALMIC SOLUTION every 12 hours. BRIMONIDINE-TIMOLOL (COMBIGAN) 0.2-0.5 % OPHTHALMIC SOLUTION instill 1 drop into left eye twice a day BROMFENAC SODIUM 0.075 % SOLUTION Administer 1 drop into affected eye(s) in the morning and 1 drop in the evening. CALCIUM 500 MG TABLET Take 500 mg by mouth daily. DOCUSATE SODIUM (COLACE) 100 MG TABLET 1-2 tab(s) orally once a day at bedtime as needed LATANOPROST (XALATAN) 0.005 % OPHTHALMIC SOLUTION 1 gtt in each eye once a day (at bedtime) LATANOPROST (XALATAN) 0.005 % OPHTHALMIC SOLUTION instill 1 drop into left eye every evening LEVOTHYROXINE (SYNTHROID, LEVOXYL) 25 MCG TABLET Take 25 mcg by mouth daily. LEVOTHYROXINE (SYNTHROID, LEVOXYL) 25 MCG TABLET Every 24 hours. MAGNESIUM OXIDE (MAG-OX) 400 MG TABLET Take 400 mg by mouth in the morning. MOMETASONE (ELOCON) 0.1 % OINTMENT Apply topically. OFLOXACIN (OCUFLOX) 0.3 % OPHTHALMIC SOLUTION instill 1 drop into right eye four times a day ONETOUCH ULTRA TEST STRIP use to TEST BLOOD SUGAR once daily as directed PREDNISOLONE ACETATE (PRED-FORTE) 1 % OPHTHALMIC SUSPENSION instill 1 drop into right eye four times a day PYRIDOXINE (B-6) 100 MG TABLET Take 100 mg by mouth daily. SPIRONOLACTONE (ALDACTONE) 50 MG TABLET Every 24 hours. ALLERGIES Sulfa antibiotics and Sulfasalazine FAMILY HISTORY Family History Problem Relation Name Age of Onset Stroke Mother Heart attack Father Throat cancer Maternal Grandmother SOCIAL HISTORY Social History Socioeconomic History Marital status: Tobacco Use Smoking status: Never Smokeless tobacco: Never Vaping Use Vaping Use: Never used Substance and Sexual Activity Alcohol use: No Drug use: No PHYSICAL EXAM Vitals: 06/07/23 1653 BP: (!) 140/55 BP Location: Right arm Patient Position: Lying Pulse: 77 Resp: 18 Temp: 36.6 C (97.8 F) TempSrc: Oral SpO2: 97% Physical Exam Vitals and nursing note reviewed. Constitutional: Appearance: Normal appearance. She is well-developed. She is not toxic-appearing. HENT: Head: Atraumatic. Mouth/Throat: Mouth: Mucous membranes are moist. Eyes: Conjunctiva/sclera: Conjunctivae normal. Cardiovascular: Rate and Rhythm: Normal rate and regular rhythm. Pulmonary: Effort: Pulmonary effort is normal. No respiratory distress. Breath sounds: No stridor. Abdominal: General: Abdomen is flat. There is no distension. Musculoskeletal: Cervical back: Normal range of motion. Left lower leg: Swelling present. Left ankle: Swelling present. Right foot: Swelling present. Left foot: Swelling present. Skin: General: Skin is warm and dry. Capillary Refill: Capillary refill takes less than 2 seconds. Coloration: Skin is not jaundiced. Neurological: Mental Status: She is alert. Mental status is at baseline. Sensory: Sensation is intact. Deep Tendon Reflexes: Reflexes are normal and symmetric. Psychiatric: Mood and Affect: Mood normal. Behavior: Behavior normal. Judgment: Judgment normal. SCREENINGS Medical decision making Medical Decision Making Problems Addressed: Pedal edema: complicated acute illness or injury Amount and/or Complexity of Data Reviewed Labs: ordered. Decision-making details documented in ED Course. ECG/medicine tests: ordered. Decision-making details documented in ED Course. Risk OTC drugs. Prescription drug management. DIAGNOSTIC RESULTS Procedures/EKG: Physician EKG interpretation can be found in [facility] if done RADIOLOGY (Per Emergency Physician): Interpretation per the Radiologist below, if available at the time of this note: Vascular US lower extremity venous duplex bilateral Final Result No evidence of left or right lower extremity deep venous thrombosis. This radiologist maintains RVT certification. Report Dictated on Electronically Signed By: Cesar Chan Electronically Signed Date/Time: 06/07/2023 6:42 PM EDT LABS: Labs Reviewed COMPLETE URINALYSIS - Abnormal Result Value Color, Urine Light Yellow Clarity, Urine Clear pH, Urine 5.5 Leukocytes, Urine 25 (*) Nitrite, Urine Negative Protein, Urine Negative Glucose, Urine 50 Bilirubin, Urine Negative Ketones, Urine Negative Urobilinogen, Urine Normal Blood, Urine Negative Volume, Urine 8-12 mL RBC, Urine Negative WBC, Urine 6-10 (*) Squamous Epithelial, Urine 3-5 Bacteria, Urine Many (*) SPECIFIC GRAVITY OF URINE (NUMERIC) 1.005 COMPLETE URINALYSIS WITH REFLEX TO CULTURE Narrative: The following orders were created for panel order Urinalysis complete with reflex to Culture. Procedure Abnormality Status --------- ------ Complete Urinalysis[[id number]] Abnormal Final result Please view results for these tests on the individual orders. Medications ordered: Medications aspirin chewable tablet 324 mg (324 mg Oral Given 06/07/231732) ED Course as of 06/07/231901 Mon Jun 07, 2023 174 ECG 12 lead No arrythmia, no acute iscehmia [NM] 1815 Protein, Urine: Negative [NM] 1815 RBC, Urine: Negative [NM] 190 Bilirubin, Urine: Negative [NM] ED Course User Index [NM] Luis A Kiser MD Diagnoses as of 06/07/231901 Pedal edema * No order type specified * Prior medical records were reviewed: cirrhosis of liver dx On spirinolactone Lasix trial for few d REVAL: CRITICAL CARE TIME CONSULTS: None PROCEDURES: Procedures FINAL IMPRESSION 1. Pedal edema DISPOSITION/PLAN DISPOSITION Discharge 06/07/2023 06:58:41 PM PATIENT REFERRED TO: Nigel Frye MD [address] [place] [id number] In 1 day Cesar Rothman DO [address] [facility] [address] [facility] [address] In 1 day I prescribed: New Prescriptions FUROSEMIDE (LASIX) 20 MG TABLET Take 1 tablet (20 mg) by mouth daily. (Comment: this report has been produced using speech recognition software and may contain errors related to that system including errors in grammar, punctuation, and spelling, as well as words and phrases that may be inappropriate) LUIS A KISER MD (electronically signed) LuisA Kiser MD 06/07/231901 [facility] 06-16-2022 Hospital Discharg e instructions Glenys Sanders RN - 06/16/2022 12:11 PM EDT Upper GI Endoscopy: What to expect at home ACTIVITY: DO NOT DRIVE, OPERATE MACHINERY, OR DRINK ANY ALCOHOL TODAY. Avoid making critical decisions, signing legal documents, or performing any activity that requires alertness for the rest of the day. You may be bloated or have gas pains since air was introduced into the stomach for the procedure. You may need to pass the gas throughout the day. You may experience a mild sore throat. You may use an [id number]-[id number] chloraseptic spray, gargle with warm salt water, or use throat lozenges. Notify your physician if this feeling lasts more than 48 hours. Rest the remainder of the day. You may resume normal activity tomorrow. You may return to work tomorrow. DIET: You may resume a normal diet unless notified or recommended by your physician. You may be eager to eat a large meal after fasting, but it is a good idea to start with light meals and ease into solid foods the first day. (*) If your stomach is upset, try clear liquids and bland, low-fat foods like plain toast or rice. Drink plenty of fluids for the first 24 hours (unless your physician states otherwise). MEDICATION: Resume your normal home medications unless notified or recommended by your physician. If you take blood thinners (such as Coumadin, Eliquis, Plavix, Aspirin, etc.) or anti-inflammatory medications (Advil, Motrin, Aleve, etc.), ask your physician when you may resume these medications. FOLLOW-UP APPOINTMENT: Follow up with or call your physician as needed. When to call for help: Call your doctor IMMEDIATELY or seek medical care if you experience: Severe pain or vomiting Coughing up more than a teaspoon of blood You pass a large amount of tar-like stools Your belly is swollen and firm with severe pain A fever greater than 101 degrees Redness or swelling of arm from the IV site for more than 48 hours Sudden onset of chest pain or shortness of breath If you become extremely dizzy or pass out (lose consciousness) IF YOU ARE UNABLE TO REACH YOUR PHYSICIAN GO TO NEAREST EMERGENCY DEPARTMENT documented in this encounter [facility] Work Phone: 11-16-2021 [facility] Discharg Mark Perez MD - 11/16/2021 Tylenol with pain. Use your boot to make it easier to walk. The following attachments cannot be sent through Care Everywhere.Ankle Sprain (Croatian)Fall Prevention (Croatian)Head Injury: Closed: General Info (Croatian)documented in this encounter [facility] Work Phone: documented in this encounter [facility] Work Phone: Evaluation note* Diagnosis Pedal edema- Primary Edema documented in [facility] encounter [facility] [place] [facility] Diagnosis Encounter to establish care- Primary Dependent edema Edema Acquired hypothyroidism Unspecified hypothyroidism Glaucoma, unspecified glaucoma type, unspecified laterality Hyperlipidemia, unspecified hyperlipidemia type documented in this encounter [facility] note* Diagnosis Type 2 diabetes mellitus with diabetic neuropathy, unspecified (HCC)- Primary Hypertensive chronic kidney disease with stage 1 through stage 4 chronic kidney disease, or unspecified chronic kidney disease Hyperlipidemia, unspecified Hypothyroidism, unspecified documented in this encounter [facility] note* Diagnosis Medicare annual wellness visit, subsequent- Primary 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, without long-term current use of insulin, unspecified laterality (HCC) Acquired hypothyroidism Unspecified hypothyroidism Hyperlipidemia, unspecified hyperlipidemia type documented in this encounter [facility] note* Diagnosis Medicare annual wellness visit, subsequent- Primary 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 * Dependent Edema Discharge Instructions (Croatian) [facility] Purpose Family History No Family History Records FoundNo Family History Records FoundNo Family History Records FoundNo Family History Records Found Advance Directives No Advanced Directives Records FoundDocuments on File Type Date Recorded Patient Consulting Sales Executive Expl anation ACP-Advance Directive ACP-Power of Flying Squad Worker Documents on File Type Date Recorded Patient Consulting Sales Executive Expl anation Advance Directives and Living Will Power of Flying Squad Worker Latest Code Status on File Code Status Date Activated Date Inactivated Comments Full Code 06/16/2022 10:27 AM Additional Source Comments INFORMATION SOURCE (unrecogn ized section and content) DATE CREATED AUTHOR AUTHOR'S ORGANIZ ATION 07/21/2019 [facility] DATE CREATED AUTHOR AUTHOR'S ORGANIZ ATION 06/22/2022 [facility] DATE CREATED AUTHOR AUTHOR'S ORGANIZ ATION 11/20/2023 [facility] Care Teams (unrecognized sec tion and content) [employer] Relationship Specialty Start Date End Date Nigel Frye MD [address] [place] [address] [phone] PCP - General 06/11/15 [employer] Relationship Specialty Start Date End Date Nigel Frye MD [address] [place] [address] [phone] PCP - General 06/11/15 [employer] Relationship Specialty Start Date End Date Nigel Frye MD [address] [place] [address] [phone] PCP - General 06/11/15 [employer] Relationship Specialty Start Date End Date Nigel Frye MD [facility] [place] [address] PCP - General 04/29/19 [employer] Relationship Specialty Start Date End Date Nigel Frye MD [facility] [place] [address] PCP - General 04/29/19 [employer] Relationship Specialty Start Date End Date Nigel Frye MD [facility] [place] [address] PCP - General 04/29/19 [employer] Relationship Specialty Start Date End Date Nigel Frye MD [facility] [place] [address] PCP - General 04/29/19 [employer] Relationship Specialty Start Date End Date Delonte Mandujano MD [address] [place] [address], [facility] [place], [place] [phone] PCP - General Family Medicine 06/14/23 [employer] Relationship Specialty Start Date End Date Delonte Mandujano MD [facility] [place] [address] PCP - General Family Medicine 06/14/23 [employer] Relationship Specialty Start Date End Date Nigel Frye MD [facility] [place] [phone] PCP - General 04/29/19 06/13/23 Delonte Mandujano MD [address] [place] [id number] PCP - General Family Medicine 06/14/23 [employer] Relationship Specialty Start Date End Date Delonte Mandujano MD [facility] [place] [address] PCP - General Family Medicine 06/14/23 [employer] Relationship Specialty Start Date End Date Delonte Mandujano MD [address] [place], [place] [address], [place] [address] PCP - General Family Medicine 06/14/23 [employer] Relationship Specialty Start Date End Date Delonte Mandujano MD [address] [place], [place] [address], [place] [address] PCP - General Family Medicine 06/14/23 [employer] Relationship Specialty Start Date End Date Delonte Mandujano MD [facility] [place] [address] PCP - General Family Medicine 06/14/23 Reason for Visit (unrecogniz ed section and content) Reason Comments Establish Care ER Follow-up Pedal edema Reason Onset Date Comments water pills needed 06/14/2023 Reason Comments Medicare Annual Wellness Visit Subsequen t Health Maintenance Pt refused- pcv 20 v accine, tdap vaccine, hep a and b vaccines, shingles vaccine, dexa scan, covid 4 vaccine Reason Comments Med Refill Continuous Active and Recently Administ ered Medications (unrecognized section and content) Scheduled Medication Order 06/05/2023 06/06/2023 06/07/2023 aspirin chewable tablet 324 mg (COMPLETED) 324 mg, Oral, Once, On 06/07/23 at 1730, For 1 dose 1733 (Given - Provid er: Colette Balderrama LPN) FOR RECORDS PERTAINING TO PATIENTS WHO ARE OR HAVE BEEN ENROLLED IN A CHEMICAL DEPENDENCY/SUBSTANCEABUSE PROGRAM, SOME INFORMATION MAY BE OMITTED. This clinical summary was aggregated from multiple sources. Caution should be exercised in using it in the provision of clinical care. This summary normalizes information from multiple sources, and as a consequence, information in this document may materially change the coding, format and clinical context of patient data. In addition, data may be omitted in some cases. CLINICAL DECISIONS SHOULD BE BASED ON THE PRIMARY CLINICAL RECORDS. [employer] provides no warranty or guarantee of the accuracy or completeness of information in this document.
--- NOTE | 2023-11-30 21:41 | CT_ITS ---
INDICATION: Head trauma, status post fall EXAMINATION: CT Head or Brain W/O Contrast Injection TECHNIQUE: Multiple axial images were obtained of the head without intravenous contrast. A radiation dose optimization technique was used for this scan. IV Contrast dosage and agent: None. COMPARISON: None FINDINGS: BRAIN PARENCHYMA: No intra- or extra-axial hemorrhage. No evidence of acute major territorial infarct. No intracranial mass or mass effect. Mild periventricular white matter lucencies. Chronic cerebral involutional changes. CSF SPACES: Prominent cerebral sulci and extraaxial spaces secondary to involutional changes. No hydrocephalus. Basal cisterns are patent. Intracranial atherosclerotic calcifications. CALVARIUM, SKULL BASE, PARANASAL SINUSES AND MASTOID AIR CELLS: Calvarium is intact. No acute findings within paranasal sinuses. Mastoid air cells are well-pneumatized. ORBITS: Postop cataract surgery bilaterally. CT/Brain/Head without Contrast IMPRESSION: Chronic involutional and white matter changes. No evidence of acute intracranial abnormality. Electronically Signed: Ernesto Pate MD at 22:26 EST ,
--- NOTE | 2023-11-30 21:41 | CT_ITS ---
INDICATION: neck EXAMINATION: CT Spine Cervical W/O Contrast Injection TECHNIQUE: Helically acquired images were obtained of the cervical spine. 2D reformatted images were reviewed. A radiation dose optimization technique was used for this scan. IV Contrast dosage and agent: None. COMPARISON: None. FINDINGS: VERTEBRAE: No fracture or traumatic subluxation. No suspicious osseous lesion identified. Adequate alignment. Preserved cervical lordosis and preserved vertebral body heights. Multilevel degenerative facet arthropathy. DISCS and SPINAL CANAL: Disc heights are preserved. No significant spinal canal stenosis. NECK SOFT TISSUES: No prevertebral soft tissue swelling. No other acute findings. LUNG APICES: No acute findings. CT/Spine Cervical without Contras IMPRESSION: No evidence of acute cervical spinal injury. Electronically Signed: Ernesto Pate MD at 22:27 EST ,
--- NOTE | 2023-11-30 21:46 | ED.VIS.FALL ---
HPI HPI - Fall History of Present Illness Chief Complaint: Fall Narrative Narrative: 88-year-old female presenting with functional decline over the last couple weeks. Apparently she had a fall this evening was able hit H[employer]. Her grandson gives a history. He states he has a link to the Hublished. She states that she called immediately after she fell. She was found wedged between a wall and a chest. Unsure if she had LOC. Limited downtime and only believed to be a couple of minutes. Patient initially complained of some hip pain but states does not hurt anymore. Family notices that she has lower extremity edema and abdominal distention which is worsening. They believe she has a history of liver disease. She is not complaining of abdominal pain or hip pain currently. No chest pain or shortness of breath. PFSH PFSH Home Medications atorvastatin 40 mg tablet 40 mg PO DAILY 11/30/23 [History Last Taken Unknown] bisacodyl 5 mg tablet,delayed release (Dulcolax (bisacodyl)) 10 mg PO DAILY 11/30/23 [History Last Taken Unknown] ergocalciferol (vitamin D2) 1,250 mcg (50,000 unit) capsule 1,250 mcg PO QWEEK 11/30/23 [History Last Taken Unknown] latanoprost 0.005 % eye drops 1 drp EACH EYE QPM 11/30/23 [History Last Taken Unknown] levothyroxine 25 mcg tablet (Euthyrox) 25 mcg PO DAILY 11/30/23 [History Last Taken Unknown] pyridoxine (vitamin B6) 50 mg capsule (Vitamin B-6) 100 mg PO DAILY 11/30/23 [History Last Taken Unknown] spironolactone 50 mg tablet (Aldactone) 50 mg PO DAILY 11/30/23 [History Last Taken Unknown] Allergy/AdvReac Type Severity Reaction Status Date / Time No Known Allergies Allergy Verified 11/30/23 20:27 Surgical History H/O: hysterectomy History of cholecystectomy Social History Smoking Status: Never smoker ROS ROS ED Constitutional Constitutional ED: Denies chills or fever(s) Eyes Eyes: Denies change in vision or diplopia ENT ENT ED: Denies rhinorrhea or sore throat Cardiovascular Cardiovascular: Denies chest pain or palpitations Respiratory/Chest Respiratory/Chest: Denies cough or dyspnea Gastrointestinal Gastrointestinal: Denies abdominal pain, nausea or vomiting Genitourinary Genitourinary ED: Denies dysuria or hematuria Musculoskeletal Musculoskeletal: Denies arthralgias Integumentary Denies abscess or Abrasions Neurologic Neurologic: Denies headache(s) or paresthesias Psychiatric Psychiatric: Denies anxiety or depression Endocrine Endocrinology: Denies polydipsia EXAM Physical Exam Const Vital Signs: 11/30/23 20:20 11/30/23 20:27 11/30/23 20:30 Temperature 98 F 98 F Temperature Source Oral Oral Pulse Rate 73 73 Respiratory Rate 18 18 Respiratory Effort Normal Non-Labored Respiratory Depth Normal Respiratory Pattern Normal Blood Pressure 102/52 L 102/52 L Blood Pressure Mean 68 68 Pulse Ox 99 99 Oxygen Delivery Method Room Air Room Air Room Air 11/30/23 21:58 11/30/23 22:48 11/30/23 23:10 Temperature 98 F Temperature Source Pulse Rate 73 76 74 Respiratory Rate 12 14 18 Respiratory Effort Respiratory Depth Respiratory Pattern Blood Pressure 120/50 L 116/53 L 115/51 L Blood Pressure Mean 73 74 72 Pulse Ox 97 98 99 Oxygen Delivery Method Room Air Room Air Positive well nourished General Appearance ED: NAD HEENT Reports normocephalic atraumatic Eyes PERRL and EOMs intact bilaterally Neck No full ROM and No no lymphadenopathy Chest Wall inspection of chest normal Resp normal respiratory effort and no retractions Auscultation: Negative for rales, rhonchi or wheezes Cardio regular rate and regular rhythm GI non-tender Back/Spine no CVA tenderness Neuro CN's II-XII intact bilaterally, moves all extremities, no focal motor deficits and no sensory deficits noted Sensorium / Orientation: alert Motor Exam: general weakness Psych mental status grossly normal MDM MDM MDM Narrative Medical decision making narrative: 88-year-old female presenting after a fall. This was unwitnessed. Patient is a poor informant. Apparently has functional [place] at home. She lives at home alone and she is legally blind. Apparently has been trying to get her placed into a facility although she has been refusing. Differential includes intracranial hemorrhage, skull fracture, C-spine fracture, ACS, pneumonia, electrolyte abnormalities, dehydration, UTI, CHF, anemia. CBC will be obtained to assess white blood cell count, hemoglobin, platelets. BMP to assess renal function, electrolytes. With her history of liver disease I will obtain a liver function panel. INR will also be obtained. High-sensitivity troponin and EKG will be obtained to assess for ischemia/dysrhythmia. Chest x-ray to rule out pneumonia. Urinalysis to assess for UTI. CT brain and cervical spine will be obtained as the patient fell and has limited history. No evidence of basilar skull fracture on exam. CBC shows white blood cell count of 5.4. Hemoglobin 10.9. I have no comparison for this. Platelet count 92. PTT slightly prolonged at 13.2 INR normal at 1.2. Creatinine is normal 0.84. Potassium slightly low at 3.4. Total bilirubin 3.9, direct bilirubin 3.88, AST 49, ALT 51, alk phosphatase 135. High-sensitivity troponin is 19. EKG on my interpretation shows sinus rhythm with a rate of 69 bpm with incomplete left bundle branch block occasional PVCs. BNP mildly elevated at 114. Chest x-ray my interpretation is no acute process. CT brain and CT cervical spine interpreted by radiology are also negative. Apparently the patient does have some history of cirrhosis but I do not have any comparison lab work to this. Patient family requesting admission due to weakness as the patient is blind and lives at home alone and is falling with recent decline. Will discuss with the hospitalist for admission. After discussion with the hospitalist he recommended a CT of the abdomen pelvis due to the elevated liver enzymes. We discussed that she has elevated liver enzymes in the past and that she has had several workups for this. Family believes she has cirrhosis. CT scan is ordered. Will sign this out to incoming ED physician until it can be performed. Discussed findings with family. Impression: 1. Fall 2. Anemia 3. Hyperbilirubinemia 4. Debility Lab Data Attestation: I reviewed the patient's lab results. Labs: Laboratory Results - last 24 hr 11/30/23 21:55 WBC 5.4 RBC 3.25 L Hgb 10.9 L Hct 32.5 L MCV 100.0 H MCH 33.5 H MCHC 33.5 RDW Std Deviation 55.8 H RDW Coeff of Nati 15.1 H Plt Count 92 L MPV 10.2 Immature Gran % (Auto) 0.400 Neut % (Auto) 66.7 Lymph % (Auto) 21.0 [place] % (Auto) 9.3 Eos % (Auto) 2.0 Baso % (Auto) 0.6 Absolute Neuts (auto) 3.6 Absolute Lymphs (auto) 1.13 Nucleated RBC % 0 Differential Comment SCANNED PT 15.2 H INR 1.2 Sodium 141 Potassium 3.4 L Chloride 108 H Carbon Dioxide 29.0 Anion Gap 4 L BUN 12 Creatinine 0.84 Estim Creat Clear Calc 34.53 Est GFR (MDRD) Af Amer 82 Est GFR (MDRD) Non-Af 68 BUN/Creatinine Ratio 14.3 Glucose 109 H Calcium 9.0 Total Bilirubin 3.90 H Direct Bilirubin 0.88 H AST 49 H ALT 51 Alkaline Phosphatase 135 H Troponin I High Sens 19 B-Natriuretic Peptide 114.8 H Total Protein 5.5 L Albumin 2.6 L Globulin 2.9 Radiography Diagnostic Testing: Clinical Impression(s) from Imaging Studies Brain CT 11/30/23 21:41 IMPRESSION: Chronic involutional and white matter changes. No evidence of acute intracranial abnormality. Electronically Signed: Ernesto Pate MD at 22:26 EST , Cervical Spine CT 11/30/23 21:41 IMPRESSION: No evidence of acute cervical spinal injury. Electronically Signed: Ernesto Pate MD at 22:27 EST , Chest X-Ray 11/30/23 22:05 IMPRESSION: No radiographic evidence of acute cardiopulmonary disease. Electronically Signed: Ernesto Pate MD at 22:28 EST , Discharge Plan Triage Chief Complaint: Fall ED Provider: Lukas Monique Dx/Rx/DC Orders Prescriptions: No Action spironolactone [Aldactone] 50 mg tablet 50 mg PO DAILY Vitamin B-6 50 mg capsule 100 mg PO DAILY levothyroxine [Euthyrox] 25 mcg tablet 25 mcg PO DAILY atorvastatin 40 mg tablet 40 mg PO DAILY ergocalciferol (vitamin D2) 1,250 mcg (50,000 unit) capsule 1,250 mcg PO QWEEK bisacodyl [Dulcolax (bisacodyl)] 5 mg tablet,delayed release (DR/EC) 10 mg PO DAILY latanoprost 0.005 % drops 1 drp EACH EYE QPM Primary Care Provider: Robin Mandujano Referrals: Robin Mandujano MD [Primary Care Provider] -
[2023-11-30 21:58] VITALS: BP 120/50; PULSE 73; RESP 12; O2SAT 97
--- NOTE | 2023-11-30 22:05 | RAD_ITS ---
INDICATION: chest pain EXAMINATION/TECHNIQUE: X-RAY - AP view of chest COMPARISON: None FINDINGS: LINES/DEVICES: None. LUNGS: No pulmonary edema or focal airspace consolidation. No sizable pleural effusion. No detectable pneumothorax. MEDIASTINUM AND CARDIOVASCULAR STRUCTURES: Heart size within normal limits for imaging technique. Atherosclerotic calcifications along aorta. BONES AND SOFT TISSUES: Skeletal degenerative changes. RAD/Chest 1 View (Portable) IMPRESSION: No radiographic evidence of acute cardiopulmonary disease. Electronically Signed: Ernesto Pate MD at 22:28 EST ,
[2023-11-30 22:11] LABS: Absolute Lymphocyte Count 1.13 X10^3/uL (0.83-4.51); Absolute Neutrophil Count 3.6 X10^3/uL (2.0-7.7); Basophil# 0.03 X10^3/uL; Basophil% 0.6 % (0-1); Eosinophil# 0.11 X10^3/uL; Hematocrit 32.5 % (37-47); Hemoglobin 10.9 g/dL (12.0-15.0); Lymphocyte # 1.13 X10^3/ul (0.83-4.51); Mean Corp Hgb Conc 33.5 g/dL (32-36); Mean Corpuscular Hgb 33.5 pg (27.0-32.0); Mean Platelet Vol. 10.2 fl (6.2-12.0); Monocyte% 9.3 % (0-10); NRBC Flagged by Analyzer 0 % (0-5); Neutrophil # 3.59 X10^3/uL (2.7-7.7); Neutrophil % 66.7 % (47-70); POSITIVE COUNT YES; Platelet Count 92 K/mm3 (150-450); RBC Distribution Width CV 15.1 % (11.6-14.6); RBC Distribution Width SD 55.8 fl (35.1-43.9); Red Blood Count 3.25 M/mm3 (4.2-5.4); White Blood Count 5.4 K/mm3 (4.4-11.0)
[2023-11-30 22:13] LABS: Differential Indicated SCAN CRITERIA MET
[2023-11-30 22:16] LABS: International Normalized Ratio 1.2; Prothrombin Time (Protime)PT. 15.2 SECONDS (11.7-14.9)
[2023-11-30 22:23] LABS: Differential Comment SCANNED
[2023-11-30 22:24] LABS: AST(SGOT) 49 U/L (15-37); Alanine Aminotransfer ALT/SGPT 51 U/L (13-56); Albumin, Serum 2.6 g/dL (3.2-5.0); Alkaline Phosphatase 135 U/L (45-117); Anion Gap 4 (5-15); BUN 12 mg/dL (7-18); BUN/Creat Ratio 14.3 RATIO (10-20); Bilirubin, Direct 0.88 mg/dL (0.00-0.30); Chloride 108 mmol/L (98-107); Creatinine, Serum 0.84 mg/dL (0.55-1.02); EST Glomerular Filtration Rate 68 mL/min (>60); Est Glom Filt Rate - Afr Amer 82 mL/min (>60); Estimated Creatinine Clearance 34.53 ml/min; Globulin 2.9 g/dL (2.2-4.2); Glucose 109 mg/dL (74-106); Potassium 3.4 mmol/L (3.5-5.1); Protein, Total 5.5 g/dL (6.4-8.2); Sodium Level 141 mmol/L (136-145); Troponin-I HS 19 pg/mL (3.0-54.0)
[2023-11-30 22:37] LABS: BNP,B-Type NATRIURETIC PEPTIDE 114.8 pg/mL (0-100)
[2023-11-30 22:48] VITALS: BP 116/53; PULSE 76; RESP 14; O2SAT 98
[2023-11-30 23:10] VITALS: BP 115/51; PULSE 74; RESP 18; TEMP 36.6; O2SAT 99
[2023-11-30 23:25] LABS: Mucous, Urine 0 SEEN /hpf (<or=2+); Red Blood Cells-Urine 0 SEEN /hpf (0-5); Squamous Epithelial Cells - UA 0 SEEN /hpf (5-10)
--- NOTE | 2023-11-30 23:34 | HP.PCM.HOS_ITS ---
[facility] - [facility] Date of Admission: 11/30/23 Date of Service: 11/30/23 Chief Complaint: Fell at Home. [facility] Narrative KUMAR CANALES, is a 88 F with a past medical history of essential hypertension, hyperlipidemia, hypothyroidism, glaucoma, legally blind, history of hysterectomy, history of cholecystectomy and history of cirrhosis with severe hyperbilirubinemia of ~3 mg/dL; with previous evaluation at [facility] (2021) who presents to [facility] ER complaining of fall at home. Ms. Canales is a poor historian but she has a grandson who is a licensed loan officer assistant here who helped to augment the history and he reported that she has had progressive functional decline over the past few weeks. Apparently she was at h ome this evening and was able to hit her life alert button with EMS promptly responding. She was found wedged between the wall and the chest and was unable to get up. She is unsure if she had a loss of consciousness. Her family does not notice increasing lower extremity edema and abdominal distention that also seems to be getting progressively worse. She is not complaining of abdominal pain, chest pain, shortness of breath or hip pain at this time. Her family was attempting to get her into an extended care facility but she has been refusing. There is no report of associated fever, chills, nausea, vomiting, diarrhea or constipation. In the ER she was diagnosed with a suspected mechanical fall complicated by generalized weakness with ambulatory dysfunction and severe hyperbilirubinemia of 3.9 mg/dL present on admission with a direct bilirubin of 0.88 mg/dL present on admission along with an alkaline phosphatase of 135 and an AST of 49 and an ALT of 51 (with a BNP of 114.8) with mild hypokalemia of 3.4 mmol/L present on admission and she was then admitted [facility] under observation status for ongoing care for stay that is expected to be less than 48 hours. ON LICENSE OF [facility] Home Medications atorvastatin 40 mg tablet 40 mg PO DAILY 11/30/23 [History Last Taken Unknown] bisacodyl 5 mg tablet,delayed release (Dulcolax (bisacodyl)) 10 mg PO DAILY 11/30/23 [History Last Taken Unknown] ergocalciferol (vitamin D2) 1,250 mcg (50,000 unit) capsule 1,250 mcg PO QWEEK 11/30/23 [History Last Taken Unknown] latanoprost 0.005 % eye drops 1 drp EACH EYE QPM 11/30/23 [History Last Taken Unknown] levothyroxine 25 mcg tablet (Euthyrox) 25 mcg PO DAILY 11/30/23 [History Last Taken Unknown] pyridoxine (vitamin B6) 50 mg capsule (Vitamin B-6) 100 mg PO DAILY 11/30/23 [History Last Taken Unknown] spironolactone 50 mg tablet (Aldactone) 50 mg PO DAILY 11/30/23 [History Last Taken Unknown] Allergy/AdvReac Type Severity Reaction Status Date / Time No Known Allergies Allergy Verified 11/30/23 20:27 Surgical History H/O: hysterectomy History of cholecystectomy Social History Smoking Status: Never smoker ROS ROS Narrative Patient is a poor historian and therefore cannot complete a review of systems at this time. Review of Systems ROS Unobtainable: due to encephalopathy Vital Signs Vital Signs Vital Signs: 11/30/23 20:20 11/30/23 20:27 11/30/23 20:30 Temperature 98 F 98 F Temperature Source Oral Oral Pulse Rate 73 73 Respiratory Rate 18 18 Respiratory Effort Normal Non-Labored Respiratory Depth Normal Respiratory Pattern Normal Blood Pressure 102/52 L 102/52 L Blood Pressure Mean 68 68 Pulse Ox 99 99 Oxygen Delivery Method Room Air Room Air Room Air 11/30/23 21:58 11/30/23 22:48 11/30/23 23:10 Temperature 98 F Temperature Source Pulse Rate 73 76 74 Respiratory Rate 12 14 18 Respiratory Effort Respiratory Depth Respiratory Pattern Blood Pressure 120/50 L 116/53 L 115/51 L Blood Pressure Mean 73 74 72 Pulse Ox 97 98 99 Oxygen Delivery Method Room Air Room Air Weight Weight: 137 lb Body Mass Index (BMI) 26.7 Physical Exam Const alert and no apparent distress General Appearance: cooperative Orientation / Consciousness: confused HEENT normocephalic, head/scalp atraumatic, hearing grossly normal bilaterally and moist oral mucous membranes Eyes PERRL and EOMs intact bilaterally Neck no lymphadenopathy and supple Resp normal respiratory effort, no retractions, no use of accessory muscles and clear to auscultation bilaterally Cardio regular rate and regular rhythm GI soft to palpation and non-tender GI Narrative: Patient has notable abdominal distention consistent with suspected ascites. Extremity Extremity Narrative: Patient has 3-4+ bilateral lower extremity edema. Skin Skin Narrative: Patient has evidence of jaundice. Neuro CN's II-XII intact bilaterally, moves all extremities and no focal motor deficits Sensorium / Orientation: awake, alert, oriented to person and oriented to place Speech: speech normal Psych affect normal Results Medical Records Data Attestation: I reviewed the patient's medical records Lab / Micro Data Attestation: I reviewed the patient's lab results. 11/30/23 21:55 11/30/23 21:55 Labs: Laboratory Results - last 24 hr 11/30/23 21:55: WBC 5.4, RBC 3.25 L, Hgb 10.9 L, Hct 32.5 L, MCV 100.0 H, MCH 33.5 H, MCHC 33.5, RDW Std Deviation 55.8 H, RDW Coeff of Nati 15.1 H, Plt Count 92 L, MPV 10.2, Immature Gran % (Auto) 0.400, Neut % (Auto) 66.7, Lymph % (Auto) 21.0, [place] % (Auto) 9.3, Eos % (Auto) 2.0, Baso % (Auto) 0.6, Absolute Neuts (auto) 3.6, Absolute Lymphs (auto) 1.13, Nucleated RBC % 0, Differential Comment SCANNED, PT 15.2 H, INR 1.2, Sodium 141, Potassium 3.4 L, Chloride 108 H, Carbon Dioxide 29.0, Anion Gap 4 L, BUN 12, Creatinine 0.84, Estim Creat Clear Calc 34.53, Est GFR (MDRD) Af Amer 82, Est GFR (MDRD) Non-Af 68, BUN/Creatinine Ratio 14.3, Glucose 109 H, Calcium 9.0, Total Bilirubin 3.90 H, Direct Bilirubin 0.88 H, AST 49 H, ALT 51, Alkaline Phosphatase 135 H, Troponin I High Sens 19, B- Natriuretic Peptide 114.8 H, Total Protein 5.5 L, Albumin 2.6 L, Globulin 2.9 Imagaing Radiology Impression Brain CT 11/30/23 21:41 IMPRESSION: Chronic involutional and white matter changes. No evidence of acute intracranial abnormality. Electronically Signed: Ernesto Pate MD at 22:26 EST , Cervical Spine CT 11/30/23 21:41 IMPRESSION: No evidence of acute cervical spinal injury. Electronically Signed: Ernesto Pate MD at 22:27 EST , Chest X-Ray 11/30/23 22:05 IMPRESSION: No radiographic evidence of acute cardiopulmonary disease. Electronically Signed: Ernesto Pate MD at 22:28 EST , Assessment & Plan Assessment/Plan (1) Accident due to mechanical fall without injury: QUALIFIERS: Encounter type: initial encounter Qualified Code(s): W19.XXXA - Unspecified fall, initial encounter (2) Legally blind: (3) Cirrhosis: QUALIFIERS: Hepatic cirrhosis type: unspecified hepatic cirrhosis Ascites presence: with ascites Qualified Code(s): K74.60 - Unspecified cirrhosis of liver; R18.8 - Other ascites (4) Acute cystitis without hematuria: PLAN: Plan 1. Mechanical fall at home in the setting of chronic and progressively worsening generalized weakness with ambulatory dysfunction - Admit to general medical floor under observation status. Give low-dose ibuprofen as needed for pain or fever. PT/OT and case management consult and treat in the a.m. for further recommendations regarding ECF placement with help appreciated in advance. 2. Patient legally blind with history of glaucoma and can no longer safely live independently complicating #1 - Noted. 3. History of cirrhosis with hyperbilirubinemia of 3.9 mg/dL and elevated alkaline phosphatase of 135 present on admission compounding #1 & #2 - Checked CT scan of the abdomen pelvis to evaluate for possible mass versus microlithiasis; which shows only evidence of cirrhosis. Check ammonia level. Serialize CMP's to monitor response to treatment. Avoid Tylenol and other potentially hepatotoxic agents. Finally, we will consult Dr. Cornell of gastroenterology to see this patient on rounds in the a.m. for further recommendations with help appreciated in advance. 4. Acute Cystitis; without hematuria adding to the pathology of #1 - #3 - Continue Rocephin 1g IV daily and await culture and sensitivity data. 5. Mild hypokalemia of 3.4 mmol/L present on admission - Give supplemental potassium chloride and recheck level in a.m. to ensure improvement. 6. Essential hypertension - Resume home regimen plus give as needed IV hydralazine for systolic blood pressure greater than 160 mmHg. 7. Hyperlipidemia - Continue statin and check lipid profile this admission. 8. Hypothyroidism - Resume Synthroid as previous and check TSH this admission. 9. History of cholecystectomy - Noted. 10. History of hysterectomy - Noted. 11. DVT prophylaxis - SCD's only at this time given patient's thrombocytopenia of 92 present on admission relatively contraindicating heparin and heparinoid's. Total time: Approximately 45 minutes. Charges/Coding Visit Charges OBSV E&M: 71935 Observ/hosp same date L1
--- NOTE | 2023-11-30 23:35 | CT_ITS ---
STUDY: CT ABDOMEN AND PELVIS WITH CONTRAST REASON FOR EXAM: Female, 88 years old. jaundice RADIATION DOSAGE (If Supplied By Facility): CTDIvol = ( 12.41 ) mGy, DLP = ( 579.22 ) mGycm TECHNIQUE: IV 100mL Isovue-[id number] was administered. Transaxial images were obtained from the dome of the diaphragm to the symphysis pubis in the portal venous phase. Multiplanar coronal and sagittal images were reformatted. Individualized Dose Optimization Techniques Were Used For This CT. COMPARISON: No relevant prior comparison study available FINDINGS: LOWER CHEST: Bibasilar atelectasis. Coronary artery calcifications. No cardiomegaly or pericardial effusion. LIVER: Small size of the liver with a nodular contour. Normal attenuation. Recanalization of the umbilical vein. Patent portal vein. No focal mass. GALLBLADDER AND BILIARY TREE: Cholecystectomy. No intrahepatic biliary ductal dilatation. Dilated common bile duct measuring 0.9 cm. No ductal filling defect. PANCREAS: No focal cystic or solid mass. Focally dilated pancreatic duct within the pancreatic head measuring 0.5 cm. The remainder of the duct is unremarkable. SPLEEN: Normal size without focal cystic or solid mass. ADRENAL GLANDS: No nodules. KIDNEYS AND URETERS: Normal renal size and position. No hydronephrosis or nephrolithiasis. PERITONEUM: Small volume ascites. No free air. No other fluid collection. BOWEL: The stomach is unremarkable. Normal caliber small bowel. There is no obstruction. No colonic wall thickening or inflammation. Diffuse colonic diverticulosis without diverticulitis.. No evidence of acute appendicitis. LYMPH NODES: No enlarged mesenteric or retroperitoneal lymph nodes. VESSELS: The aorta is normal in caliber with moderate atherosclerotic calcification. Abdominal varices noted. URINARY BLADDER: Decompressed with no gross abnormality. REPRODUCTIVE ORGANS: No pelvic masses. ABDOMINAL WALL: Anasarca. Fat-containing umbilical region hernia. BONES: No lytic or blastic abnormality. Mild degenerative changes throughout the spine. Mild degenerative change of both hips. CT/Abdomen/Pelvis W IV Cont ONLY IMPRESSION: Cirrhotic liver with changes of portal hypertension. Small volume ascites. No pancreatic lesion or inflammation seen. Electronically Signed: Anibal Durán MD at 0:18 EST ,
[2023-11-30 23:36] LABS: Color, Urine Yellow (Yellow); Glucose, Dipstick Normal (Normal); Ketone-Dipstick Negative (Negative); Leukocyte Esterase-Dipstick 500 /ul (Negative); Nitrite-Dipstick Negative (Negative); Occult Blood-Urine 25 /ul (Negative); Protein-Dipstick Negative (Negative); Specific Gravity, Urine 1.015 (1.002-1.030); Urine Bilirubin Dipstick Negative (Negative); Urine Clarity Clear (Clear); Urine Urobilinogen 1 mg/dl (Normal)
[2023-11-30 23:46] LABS: Bacteria 2+ /hpf (None Seen); White Blood Cells 10-25 SEEN /hpf (0-5)
[2023-12-01] MEDS: Ceftriaxone 1 GM/50 ML BAG IV ×2 (00:27→22:33)
--- OUTSIDE RECORDS SUMMARY | 2023-12-01 00:38 | XMS RPT_ITS | CCD ---
Author Name Unknown Address [address] [place] [address] Organization [facility] Care Team Providers Care Fingernail Sculpturer Name Role Phone EREN GARCIA Attending Unavailable Nigel Frye Primary Care Provider Nigel Frye Primary Care Provider Nigel Frye MD Primary Care Provid er Nigel Frye MD Primary Care Provid er Nigel Frye MD Primary Care Provider [phone] Nigel Frye MD Primary Care Provider [phone] Delonte Mandujano MD Primary Care Provider Nigel Frye MD Primary Care Provider [phone] LAURA CROWE Attending Unavailable NIGEL FRYE Primary Care Unavailable DELONTE MANDUJANO Attending Unavailable DELONTE MANDUJANO Primary Care Unavailable NIGEL FRYE Attending Unavailable NGIEL FRYE Primary Care Unavailable LUIS A KISER Referring Unavailable NIGEL FRYE Primary Care Unavailable NIGEL FRYE Primary Care Unavailable LUIS A KISER Attending Unavailable Allergies Allergy Classification Reported Allergen(s) Allergy Type Date of Onset Reaction(s) Facility (6 sources) Sulfonamides (Antibiotic) Propensity to adverse reactions to drug 5 [place], [place] (10 sources) Sulfasalazine Allergy to substance 5 Rash [facility] (10 sources) Sulfonamides (Antibiotic) Drug Intolerance 5 Rash, Swelling [facility] Medications Current Medications Medication Drug Class(es) Dates [...] 157.5 cm Delonte Mandujano MD Work Phone: [email or web address] 06-30-2023 13:48-0400 Body mass index (BMI) [Ratio] 21.62 kg/m2 Delonte Mandujano MD Work Phone: [email or web address] 06-30-2023 13:48-0400 Body weight 53.62 kg Delonte Mandujano MD Work Phone: [employer] 06-30-2023 13:48-0400 Diastolic blood pressure 66 mm[Hg] Delonte Mandujano MD Work Phone: [employer] 06-30-2023 13:48-0400 Heart rate 75 /min Delonte Mandujano MD Work Phone: [employer] 06-30-2023 13:48-0400 SaO2% (BldA) [Mass fraction] 96 % Delonte Mandujano MD Work Phone: [employer] 06-30-2023 13:48-0400 Systolic blood pressure 121 mm[Hg] Delonte Mandujano MD Work Phone: [email or web address] 06-11-2023 09:19-0400 Body height 157.5 cm Laura Crowe FORM [employer]ADER - [employer] Work Phone: [facility] [employer] 06-11-2023 09:19-0400 Body mass index (BMI) [Ratio] 20.67 kg/m2 Laura Crowe [employer]M GRADER [employer] Work Phone: [facility] [employer] 06-11-2023 09:19-0400 Body weight 51.26 kg Laura Crowe FORM GRADER - [employer]HER Work Phone: [facility] [employer] 06-11-2023 09:19-0400 Diastolic blood pressure 64 mm[Hg] Laura Crowe FORM GRADER - [employer]USHER Work Phone: [facility] [employer] 06-11-2023 09:19-0400 Heart rate 78 /min Laura Crowe FORM GRADER - [employer]USHER Work Phone: [facility] [employer] 06-11-2023 09:19-0400 SaO2% (BldA) [Mass fraction] 98 % Laura Crowe FORM GRADER - [employer]HER Work Phone: [facility] [employer] 06-11-2023 09:19-0400 Systolic blood pressure 122 mm[Hg] Laura Crowe FORM GRADER - [employer]HER Work Phone: [facility] [employer] 06-07-2023 16:53-0400 Body temperature 97.81 [degF] Luis A Kiser MD Work Phone: [facility] [employer] 06-07-2023 16:53-0400 Diastolic blood pressure 55 mm[Hg] Luis A Kiser MD Work Phone: [facility] [employer] 06-07-2023 16:53-0400 Heart rate 77 /min Luis A Kiser MD Work Phone: [facility] [employer] 06-07-2023 16:53-0400 Respiratory rate 18 /min Luis A Kiser MD Work Phone: [facility] [employer] 06-07-2023 16:53-0400 SaO2% (BldA) [Mass fraction] 97 % Luis A Kiser MD Work Phone: [facility] [employer] 07-10-2023 16:53-0400 Systolic blood pressure 140 mm[Hg] Luis A Kiser MD Work Phone: [facility] 06-16-2022 12:24-0400 Diastolic blood pressure 59 mm[Hg] Cesar Gellis DO Work Phone: [facility] 06-16-2022 12:24-0400 Heart rate 66 /min Cesar Gellis DO Work Phone: [facility] 06-16-2022 12:24-0400 Respiratory rate 16 /min Cesar Gellis DO Work Phone: [facility] 06-16-2022 12:24-0400 SaO2% (BldA) [Mass fraction] 98 % Cesar Joneslis DO Work Phone: [facility] 06-16-2022 12:24-0400 Systolic blood pressure 120 mm[Hg] Cesar Gellis DO Work Phone: [facility] 06-16-2022 12:03-0400 Body temperature 97.39 [degF] Cesar Joneslis DO Work Phone: [facility] 11-16-2021 18:28-0500 Body height 154.9 cm Mark Saravia MD Work Phone: [facility] 11-16-2021 18:28-0500 Body mass index (BMI) [Ratio] 26.45 kg/m2 Mark Saravia MD Work Phone: [facility] 11-16-2021 18:28-0500 Body temperature 98.4 [degF] Mark Saravia MD Work Phone: [facility] 11-16-2021 18:28-0500 Body weight 63.5 kg Mark Saravia MD Work Phone: [facility] 11-16-2021 18:28-0500 Diastolic blood pressure 64 mm[Hg] Mark Saravia MD Work Phone: [facility] 11-16-2021 18:28-0500 Heart rate 80 /min Mark Saravia MD Work Phone: [facility] 11-16-2021 18:28-0500 Respiratory rate 20 /min Mark Saravia MD Work Phone: [facility] 11-16-2021 18:28-0500 SaO2% (BldA) [Mass fraction] 100 % Mark Saravia MD Work Phone: [facility] 11-16-2021 18:28-0500 Systolic blood pressure 149 mm[Hg] Mark Saravia MD Work Phone: [facility] Encounters Encounter Date Encounter Type Care Provider Facility Start: 11-18-2023 Refill Delonte Mandujano MD Work Phone: [facility] Start: 09-08-2023 Refill Delonte Mandujano MD Work Phone: [facility] Start: 06-30-2023 End: 06-30-2023 ambulatory [facility] Start: 06-30-2023 End: 06-30-2023 Encounter for general adult medical examination without abnormal findings [facility] Start: 06-30-2023 End: 06-30-2023 Office outpatient visit 25 minutes Delonte Mandujano MD Work Phone: [facility] Procedures Date Procedure Procedure Detail Performing [...] 1996 panel - S tiana or Plasma [facility] Start: 03-26-2023 End: 03-26-2023 Thyrotropin [Units/volume] [...] procedure 07/10/2024 1:30 PM EDT Office Visit [facility] Medicine [facility] [place] [id number] Delonte Mandujano MD [address] [facility] [place] [address] [facility] Start: 08-01-2024 COVID-19 Vaccine (4 - Booster for Moderna series) COVID-19 Vaccine (4 - Booster for Moderna series) [facility] Immunizations Immunization Date Immunization Notes Care Provider Fa marilee 09-21-2022 influenza, high dose seasonal, preservative-free Delonte Mandujano MD Work Phone: [facility] 09-21-2022 influenza virus vacc ine, unspecified formulation Luis A Kiser MD Work Phone: [facility] 08-29-2021 Influenza, Seasonal, Quadrivalent, Adjuvanted Delonte Mandujano MD Work Phone: [facility] 08-18-2020 influenza, injectabl e, quadrivalent, preservative free Delonte Mandujano MD Work Phone: [facility] 09-15-2019 influenza, high dose seasonal, preservative-free Delonte Mandujano MD Work Phone: [facility] 08-19-2018 influenza, high dose seasonal, preservative-free Delonte Mandujano MD Work Phone: [facility] 08-05-2017 influenza, high dose seasonal, preservative-free Delonte Mandujano MD Work Phone: [facility] 10-02-2016 influenza, high dose seasonal, preservative-free Delonte Mandujano MD Work Phone: [facility] 10-03-2015 influenza, high dose seasonal, preservative-free Delonte Mandujano MD Work Phone: [facility] Payers Date Payer Category Payer Unknown [employer] M [employer] LOCAL [address] [facility] [id number] 2022-Present [address] [id number] Commercial [id number] 2022 Unknown [id number] 2015 Medicare MEDICARE MEDICAR E PART A AND B [id number] 2015-Present [phone] [address] [address] [place] [address] [id number] 2015 Medicare MEDICARE MEDICAR E PART A AND B xxxxxxxxxx 2015-Present [phone] [place] [address] xxxxxxxxxx [id number] 2014 Unknown [id number] 2014 Unknown [employer] /[employer]EL xxxxxxxxx 2014-Present [address] [facility] [address] xxxxxxxxx [id number] 2002 Medicare MEDICARE MEDICAR E PART A AND B [id number] 2002-Present [address] [place] [address] Medicare [id number] 2002 Medicare [id number] Social History Date Type Detail Facility Start: 03-11-2018 Tobacco smoking stat [facility] Never smoker [facility] Start: 03-11-2018 Tobacco use and exposure Never used [facility] [place] Start: 03-11-2018 End: 06-30-2023 Alcohol intake Current non-drinker of alcohol (finding) [place], [place] Start: 1935 Sex Assigned At Not on file [place], [place] Start: 03-11-2018 End: 06-29-2023 Alcohol intake No [place] Start: 03-16-2023 End: 06-30-2023 Exposure to SARS-CoV-2 (event) Not sure [facility] Work Phone: Start: 11-12-2022 End: 06-29-2023 History of Social function [facility] Frequency of Alcohol Consumption Not on file [facility] (I/We) worried wheth er (my/our) food would run out before (I/we) got money to buy more. Never true [facility] [employer] In the past 12 month s, was there a time when you were not able to pay the mortgage or rent on time? No [facility] Medical Equipment Procedure Code Equipment Code Equipment Origin al Text Equipment Identifier Dates use to TEST BLOO D SUGAR once daily as directed [id number] Start: 10-10-2022 End: 06-11-2023 Clinical Notes 11-16-2021 [...] date of refill on this medication 09/08/23 [facility] 11-18-2023 Miscellaneous Notes Prescription Request: Last medication check: 06/11/23 Last physical exam: 06/30/23 Next scheduled appointment: 01/17/24 Last date of refill on this medication 09/08/23 documented in this encounter [facility] 09-08-2023 Telephone encounter Note Prescription Request: Last medication check: 06/11/23 Last physical exam: 06/30/23 Next scheduled appointment: 01/17/24 Last date of refill on this medication 07/09/23 #30 1 refill [facility] 09-08-2023 Miscellaneous Notes Prescription Request: Last medication check: 06/11/23 Last physical exam: 06/30/23 Next scheduled appointment: 01/17/24 Last date of refill on this medication 07/09/23 #30 1 refill documented in this encounter [facility] 06-30-2023 Evaluation + Plan note Associated Problem(s): Hyperlipidemia Controlled, continue atorvastatin 40 mg daily [facility] 06-30-2023 Miscellaneous Notes Associated Problem(s): Hyperlipidemia Controlled, [...] 25 mcg daily documented in this encounter [facility] 06-30-2023 Miscellaneous Notes Associated Problem(s): Hyperlipidemia Controlled, [...] Level of Service documented in this encounter [facility] 06-30-2023 Evaluation + Plan note Associated Problem(s): 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 [facility] 06-30-2023 Evaluation + Plan note Associated Problem(s): Acquired hypothyroidism Controlled, continue levothyroxine 25 mcg daily [facility] 06-30-2023 History of Presen t illness Narrative Patient verified by last name and date of . Images from the original note were not included. [facility] [address] [facility] [address] Visit type: Established Patient Reason for Visit: [...] Medication Reason ergocalciferol (Vitamin D-2) 1.25 MG (96065 UT) capsule Med list cleanup List of [...] 24 hours. ergocalciferol (Vitamin D-2) 1.25 MG (62098 UT) capsule Take by mouth 1 (one) [...] 06/30/2023 2:26 PM documented in this encounter [facility] 06-30-2023 History of Presen t illness Narrative Patient verified by last name and date of . Images from the original note were not included. [facility] [address] [facility] [address] Visit type: Established Patient Reason for Visit: [...] Medication Reason ergocalciferol (Vitamin D-2) 1.25 MG (76785 UT) capsule Med list cleanup List of [...] 24 hours. ergocalciferol (Vitamin D-2) 1.25 MG (56489 UT) capsule Take by mouth 1 (one) [...] 06/30/2023 2:26 PM documented in this encounter [facility] 06-30-2023 Note Addended by: DELONTE MANDUJANO on: 07/05/2023 05:30 AM Modules accepted: Level of Service [facility] 06-14-2023 Telephone encounter Note Notified Nadira. [facility] 06-14-2023 Miscellaneous Notes Notified Nadira. Rx sent [...] Name of caller: Nadira Contact phone number: [phone] Relationship to Patient: patient Provider: Dr. Mandujano Practice: [facility] Chief Complaint/Reason for Call: Patient states she [...] their call: No documented in this encounter [facility] 06-14-2023 Telephone encounter Note Rx sent for Lasix which she can take once daily as needed for swelling. [facility] 06-14-2023 Telephone encounter Note Patient states she lives alone and doesn't think she can get one of the compression stockings on by herself so she needs something else to help with the swelling. [facility] 06-14-2023 Telephone encounter Note I did not send a water pill in for her. I gave her a prescription for the compression stockings and encouraged her to keep her feet elevated when sitting down. At her visit she said the water pill they prescribed in the ED did not work/help. [facility] 06-14-2023 Telephone encounter Note Name of caller: Nadira Contact phone number: [phone] Relationship to Patient: patient Provider: Dr. Mandujano Practice: [facility] Chief Complaint/Reason for Call: Patient states [...] business hours to return their call: No [email or web address] 06-11-2023 History of Presen t illness Narrative [...] as needed ergocalciferol (Vitamin D-2) 1.25 MG (36432 UT) capsule Take by mouth 1 (one) [...] 06/11/2023 9:54 AM documented in this encounter [facility] 06-07-2023 Emergency department Note Triage notes and assessment reviewed with REDDY Alvarenga; acuity assigned. Katie Gross RN 06/07/231705 [facility] 06-07-2023 Emergency department Note Triage notes and [...] Culture. Procedure Abnormality Status --------- ------ Complete Urinalysis[[id number]] Abnormal Final result Please view results for [...] PATIENT REFERRED TO: MD [address] [facility] [address] In 1 day Cesar Rothman DO [address] [facility] [address] In 1 day I prescribed: New [...] is within reach documented in this encounter [facility] 06-07-2023 Emergency department Triage note Pt presents to the ED with leg pain and cramping that starts at knee and travels intermittently down to her foot. Pt was wheeled back to the unit by family. Pt family is at bedside and call light is within reach [facility] 06-07-2023 Physician Emergency department Note EMERGENCY DEPARTMENT [...] Culture. Procedure Abnormality Status --------- ------ Complete Urinalysis[[id number]] Abnormal Final result Please view results for [...] PM PATIENT REFERRED TO: Nigel Frye MD [address] [place] [phone] In 1 day Cesar Rothman DO [address] [facility] [address] [facility] [address] In 1 day I prescribed: New Prescriptions [...] (electronically signed) Luis A Kiser MD 06/07/231901 [facility] 06-16-2022 Hospital Discharg e instructions Glenys Sanders [...] mild sore throat. You may use an eirg-awz-edodyny chloraseptic spray, gargle with warm salt water, [...] in this encounter [facility] Work Phone: 11-16-2021 [facility] Discharg Mark Perez MD - 11/16/2021 Tylenol with pain. Use your boot to make it easier to walk. The following attachments cannot be sent through Care Everywhere.Ankle Sprain (Vietnamese)Fall Prevention (Vietnamese)Head Injury: Closed: General Info (Vietnamese)documented in this encounter [facility] Work Phone: documented in this encounter [facility] Work Phone: Evaluation note* Diagnosis Pedal edema- Primary Edema documented in this encounter [facility] [place] [facility] Diagnosis Encounter to establish care- Primary Dependent edema Edema Acquired hypothyroidism Unspecified hypothyroidism Glaucoma, unspecified glaucoma type, unspecified laterality Hyperlipidemia, unspecified hyperlipidemia type documented in this encounter [facility] note* Diagnosis Type 2 diabetes mellitus with diabetic neuropathy, unspecified (HCC)- Primary Hypertensive chronic kidney disease with stage 1 through stage 4 chronic kidney disease, or unspecified chronic kidney disease Hyperlipidemia, unspecified Hypothyroidism, unspecified documented in this encounter [facility] note* Diagnosis Medicare annual wellness visit, subsequent- Primary 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, without long-term current use of insulin, unspecified laterality (HCC) Acquired hypothyroidism Unspecified hypothyroidism Hyperlipidemia, unspecified hyperlipidemia type documented in this encounter [facility] note* Diagnosis Medicare annual wellness visit, subsequent- Primary 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 Advance Directives and Living Will Power of Pricing Clerk Latest Code Status on File Code Status Date Activated Date Inactivated Comments Full Code 06/16/2022 10:27 AM Additional Source Comments INFORMATION SOURCE (unrecogn ized section and content) DATE CREATED AUTHOR AUTHOR'S ORGANIZ ATION 07/21/2019 [facility] DATE CREATED AUTHOR AUTHOR'S ORGANIZ ATION 06/22/2022 [facility] DATE CREATED AUTHOR AUTHOR'S ORGANIZ ATION 11/20/2023 [facility] Care Teams (unrecognized sec tion and content) Fingernail Sculpturer Relationship Specialty Start Date End Date Nigel Frye MD [address] [place] [address] [phone] PCP - General 06/11/15 Fingernail Sculpturer Relationship Specialty Start Date End Date Nigel Frye MD [address] [place] [address] [phone] PCP - General 06/11/15 Fingernail Sculpturer Relationship Specialty Start Date End Date Nigel Frye MD [address] [place] [address] [phone] PCP - General 06/11/15 Fingernail Sculpturer Relationship Specialty Start Date End Date Nigel Frye MD [facility] [place] [address] PCP - General 04/29/19 Fingernail Sculpturer Relationship Specialty Start Date End Date Nigel Frye MD [facility] [place] [address] PCP - General 04/29/19 Fingernail Sculpturer Relationship Specialty Start Date End Date Nigel Frye MD [facility] [place] [address] PCP - General 04/29/19 Fingernail Sculpturer Relationship Specialty Start Date End Date Nigel Frye MD [facility] [place] [address] PCP - General 04/29/19 Fingernail Sculpturer Relationship Specialty Start Date End Date Delonte Mandujano MD [address] [place] [address], [facility] [place], [place] [id number] PCP - General Family Medicine 06/14/23 Fingernail Sculpturer Relationship Specialty Start Date End Date Delonte Mandujano MD [address] [facility] [place] [address] PCP - General Family Medicine 06/14/23 Fingernail Sculpturer Relationship Specialty Start Date End Date Nigel Frye MD [facility] [place] [phone] PCP - General 04/29/19 06/13/23 Delonte Mandujano MD [address] [place] [id number] PCP - General Family Medicine 06/14/23 Fingernail Sculpturer Relationship Specialty Start Date End Date Delonte Mandujano MD [address] [facility] [place] [address] PCP - General Family Medicine 06/14/23 Fingernail Sculpturer Relationship Specialty Start Date End Date Delonte Mandujano MD [address] [place], [place] [address] [address] PCP - General Family Medicine 06/14/23 Fingernail Sculpturer Relationship Specialty Start Date End Date Delonte Mandujano MD [address] [place], [place] [address] [address] PCP - General Family Medicine 06/14/23 Fingernail Sculpturer Relationship Specialty Start Date End Date Delonte Mandujano MD [address] [facility] [place] [address] PCP - General Family Medicine 06/14/23 Reason [...] BE BASED ON THE PRIMARY CLINICAL RECORDS. [employer] provides no warranty or guarantee of the accuracy or completeness of information in this document.
[2023-12-01 00:50] VITALS: BMI 22.8
[2023-12-01 01:02] LABS: Cholesterol 121 mg/dL (200); High Density Lipoprotein 42 mg/dL; Prealbumin 6.9 mg/dL (20.0-40.0); Triglycerides 83 mg/dL; Very Low Density Lipoprotein 17 mg/dL (5-40)
[2023-12-01 01:33] VITALS: BP 146/50; PULSE 70; RESP 16; TEMP 36.7; O2SAT 99
[2023-12-01] MEDS: Potassium Chloride Oral Tablet 20 MEQ 60 MEQ PO (01:50)
[2023-12-01 05:16] VITALS: BP 124/53; PULSE 75; RESP 16; TEMP 36.8; O2SAT 96
[2023-12-01] MEDS: Ibuprofen 400 MG Tablet 200 MG PO ×2 (05:17→09:48)
--- OUTSIDE RECORDS SUMMARY | 2023-12-01 07:23 | XMS RPT_ITS | CCD ---
Author Name Unknown Address [address] [place] [address] Organization [facility] Care Team Providers Care Assembly Room Supervisor Name Role Phone EREN GARCIA Attending Unavailable Nigel Frye Primary Care Provider Nigel Frye Primary Care Provider Nigel Frye MD Primary Care Provid er Nigel Frye MD Primary Care Provid er Nigel Frye MD Primary Care Provider [phone] Nigel Frye MD Primary Care Provider [phone] Delonte Mandujano MD Primary Care Provider Nigel Frye MD Primary Care Provider [phone] LAURA CROWE Attending Unavailable NIGEL FRYE Primary [...] Propensity to adverse reactions to drug 5 [place], [place] (10 sources) Sulfasalazine Allergy to substance 5 Rash [facility] (10 sources) Sulfonamides (Antibiotic) Drug Intolerance 5 Rash, Swelling [facility] Medications Current Medications Medication Drug Class(es) Dates [...] 157.5 cm Delonte Mandujano MD Work Phone: [employer] 06-30-2023 13:48-0400 Body mass index (BMI) [Ratio] 21.62 kg/m2 Delonte Mandujano MD Work Phone: [employer] 06-30-2023 13:48-0400 Body weight 53.62 kg Delonte Mandujano MD Work Phone: [employer] 06-30-2023 13:48-0400 Diastolic blood pressure 66 mm[Hg] Delonte Mandujano MD Work Phone: [employer] 06-30-2023 13:48-0400 Heart rate 75 /min Delonte Mandujano MD Work Phone: [employer] 06-30-2023 13:48-0400 SaO2% (BldA) [Mass fraction] 96 % Delonte Mandujano MD Work Phone: [employer] 06-30-2023 13:48-0400 Systolic blood pressure 121 mm[Hg] Delonte Mandujano MD Work Phone: [employer] 06-11-2023 09:19-0400 Body height 157.5 cm Laura Crowe MANAGER INVESTMENT - COMPUTER ANALYST Work Phone: [facility] 06-11-2023 09:19-0400 Body mass index (BMI) [Ratio] 20.67 kg/m2 Laura Crowe MANAGER INVESTMENT - COMPUTER ANALYST Work Phone: [facility] 06-11-2023 09:19-0400 Body weight 51.26 kg Laura Crowe MANAGER INVESTMENT - COMPUTER ANALYST Work Phone: [facility] 06-11-2023 09:19-0400 Diastolic blood pressure 64 mm[Hg] Laura Crowe MANAGER INVESTMENT - COMPUTER ANALYST Work Phone: [facility] 06-11-2023 09:19-0400 Heart rate 78 /min Laura Crowe MANAGER INVESTMENT - COMPUTER ANALYST Work Phone: [facility] 06-11-2023 09:19-0400 SaO2% (BldA) [Mass fraction] 98 % Laura Crowe MANAGER INVESTMENT - COMPUTER ANALYST Work Phone: [facility] 06-11-2023 09:19-0400 Systolic blood pressure 122 mm[Hg] Laura Crowe MANAGER INVESTMENT - COMPUTER ANALYST Work Phone: [facility] 06-07-2023 16:53-0400 Body temperature 97.81 [degF] Luis A Kiser MD Work Phone: [facility] 06-07-2023 16:53-0400 Diastolic blood pressure 55 mm[Hg] Luis A Kiser MD Work Phone: [facility] 06-07-2023 16:53-0400 Heart rate 77 /min Luis A Kiser MD Work Phone: [facility] 06-07-2023 16:53-0400 Respiratory rate 18 /min Luis A Kiser MD Work Phone: [facility] 06-07-2023 16:53-0400 SaO2% (BldA) [Mass fraction] 97 % Luis A Kiser MD Work Phone: [facility] 07-10-2023 16:53-0400 Systolic blood pressure 140 mm[Hg] Luis A Kiser MD Work Phone: [facility] 06-16-2022 12:24-0400 Diastolic blood pressure 59 mm[Hg] Cesar Gellis DO Work Phone: [facility] 06-16-2022 12:24-0400 Heart rate 66 /min Cesar Gellis DO Work Phone: [facility] 06-16-2022 12:24-0400 Respiratory rate 16 /min Cesar Gellis DO Work Phone: [facility] 06-16-2022 12:24-0400 SaO2% (BldA) [Mass fraction] 98 % Cesar Joneslis DO Work Phone: [facility] 06-16-2022 12:24-0400 Systolic blood pressure 120 mm[Hg] Cesar Gellis DO Work Phone: [facility] 06-16-2022 12:03-0400 Body temperature 97.39 [degF] Cesar Joneslis DO Work Phone: [facility] 11-16-2021 18:28-0500 Body height 154.9 cm Mark Saravia MD Work Phone: [facility] 11-16-2021 18:28-0500 Body mass index (BMI) [Ratio] 26.45 kg/m2 Mark Saravia MD Work Phone: [facility] 11-16-2021 18:28-0500 Body temperature 98.4 [degF] Mark Saravia MD Work Phone: [facility] 11-16-2021 18:28-0500 Body weight 63.5 kg Mark Saravia MD Work Phone: [facility] 11-16-2021 18:28-0500 Diastolic blood pressure 64 mm[Hg] Mark Saravia MD Work Phone: [facility] 11-16-2021 18:28-0500 Heart rate 80 /min Mark Saravia MD Work Phone: [facility] 11-16-2021 18:28-0500 Respiratory rate 20 /min Mark Saravia MD Work Phone: [facility] 11-16-2021 18:28-0500 SaO2% (BldA) [Mass fraction] 100 % Mark Saravia MD Work Phone: [facility] 11-16-2021 18:28-0500 Systolic blood pressure 149 mm[Hg] Mark Saravia MD Work Phone: [facility] Encounters Encounter Date Encounter Type Care Provider Facility Start: 11-18-2023 Refill Delonte Mandujano MD Work Phone: [facility] Start: 09-08-2023 Refill Delonte Mandujano MD Work Phone: [facility] Start: 06-30-2023 End: 06-30-2023 ambulatory [facility] Start: 06-30-2023 End: 06-30-2023 Encounter for general adult medical examination without abnormal findings [facility] Start: 06-30-2023 End: 06-30-2023 Office outpatient visit 25 minutes Delonte Mandujano MD Work Phone: [facility] Medicine Procedures Date Procedure Procedure Detail Performing [...] 1996 panel - S tiana or Plasma [facility] Start: 03-26-2023 End: 03-26-2023 Thyrotropin [...] procedure 07/10/2024 1:30 PM EDT Office Visit [facility] Medicine [facility] [place] [id number] Delonte Mandujano MD [address] [facility] [address] [facility] [place] [address] [facility] Start: 08-01-2024 COVID-19 Vaccine (4 - Booster for Moderna series) COVID-19 Vaccine (4 - Booster for Moderna series) [facility] Immunizations Immunization Date Immunization Notes Care Provider Fa marilee 09-21-2022 influenza, high dose seasonal, preservative-free Delonte Mandujano MD Work Phone: [facility] 09-21-2022 influenza virus vacc ine, unspecified formulation Luis A Kiser MD Work Phone: [facility] 08-29-2021 Influenza, Seasonal, Quadrivalent, Adjuvanted Delonte Mandujano MD Work Phone: [facility] 08-18-2020 influenza, injectabl e, quadrivalent, preservative free Delonte Mandujano MD Work Phone: [facility] 09-15-2019 influenza, high dose seasonal, preservative-free Delonte Mandujano MD Work Phone: [facility] 08-19-2018 influenza, high dose seasonal, preservative-free Delonte Mandujano MD Work Phone: [facility] 08-05-2017 influenza, high dose seasonal, preservative-free Delonte Mandujano MD Work Phone: [facility] 10-02-2016 influenza, high dose seasonal, preservative-free Delonte Mandujano MD Work Phone: [facility] 10-03-2015 influenza, high dose seasonal, preservative-free Delonte Mandujano MD Work Phone: [facility] Payers Date Payer Category Payer Unknown [employer] [id number] [facility] [id number] 2022-Present [address] [place] [address] Commercial [id number] 2022 Unknown [id number] 2015 Medicare MEDICARE MEDICAR E PART A AND B [id number] 2015-Present [phone] [address] [address] [place] [address] [id number] 2015 Medicare MEDICARE MEDICAR E PART A AND B xxxxxxxxxx 2015-Present [phone] [place] [address] xxxxxxxxxx [id number] 2014 Unknown [id number] 2014 Unknown [employer] xxxxxxxxx 2014-Present [address] [facility] [address] xxxxxxxxx [id number] 2002 Medicare MEDICARE MEDICAR E PART A AND B [id number] 2002-Present [address] [place] [address] Medicare [id number] 2002 Medicare [id number] Social History Date Type Detail Facility Start: 03-11-2018 Tobacco smoking stat [facility] Never smoker [facility] Start: 03-11-2018 Tobacco use and exposure [facility] [place] Start: 03-11-2018 End: 06-30-2023 Alcohol intake Current non-drinker of alcohol (finding) [place], [place] Start: 1935 Sex Assigned At Not on file [place], [place] Start: 03-11-2018 End: 06-29-2023 Alcohol intake No [place] Start: 03-16-2023 End: 06-30-2023 Exposure to SARS-CoV-2 (event) Not sure [facility] Work Phone: Start: 11-12-2022 End: 06-29-2023 History of Social function [facility] Frequency of Alcohol Consumption Not on file [employer] [facility] (I/We) worried wheth er (my/our) food would run out before (I/we) got money to buy more. Never true [facility] In the past 12 month s, was there a time when you were not able to pay the mortgage or rent on time? No [facility] Medical Equipment Procedure Code Equipment Code Equipment Origin al Text Equipment Identifier Dates use to TEST BLOO D SUGAR once daily as directed [id number] Start: 10-10-2022 End: 06-11-2023 Clinical Notes 11-16-2021 to 11-18-2023 Telephone Encounter - Letty Mclaughlin - 11/18/2023 10:35 AM ESTTelephone Encounter - Letty Mclaughlin - 11/18/2023 10:35 AM ESTTelephone Encounter - Sav Pnea LPN - 09/08/2023 10:19 AM EDT Note Date & Type Note Facility 11-18-2023 Telephone encounter Note Prescription Request: Last medication check: 06/11/23 Last physical exam: 06/30/23 Next scheduled appointment: 01/17/24 Last date of refill on this medication 09/08/23 [facility] 11-18-2023 Miscellaneous Notes Prescription Request: Last medication check: 06/11/23 Last physical exam: 06/30/23 Next scheduled appointment: 01/17/24 Last date of refill on this medication 09/08/23 documented in this encounter [facility] 09-08-2023 Telephone encounter Note Prescription Request: Last medication check: 06/11/23 Last physical exam: 06/30/23 Next scheduled appointment: 01/17/24 Last date of refill on this medication 07/09/23 #30 1 refill [facility] 09-08-2023 Miscellaneous Notes Prescription Request: Last medication check: 06/11/23 Last physical exam: 06/30/23 Next scheduled appointment: 01/17/24 Last date of refill on this medication 07/09/23 #30 1 refill documented in this encounter [facility] 06-30-2023 Evaluation + Plan note Associated Problem(s): Hyperlipidemia Controlled, continue atorvastatin 40 mg daily [facility] 06-30-2023 Miscellaneous Notes Associated Problem(s): Hyperlipidemia Controlled, [...] 25 mcg daily documented in this encounter [facility] 06-30-2023 Miscellaneous Notes Associated Problem(s): Hyperlipidemia Controlled, [...] Level of Service documented in this encounter [facility] 06-30-2023 Evaluation + Plan note Associated Problem(s): 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 [facility] 06-30-2023 Evaluation + Plan note Associated Problem(s): Acquired hypothyroidism Controlled, continue levothyroxine 25 mcg daily [facility] 06-30-2023 History of Presen t illness Narrative Patient verified by last name and date of . Images from the original note were not included. [facility] [address] [facility] [address] Visit type: Established Patient Reason for Visit: [...] Medication Reason ergocalciferol (Vitamin D-2) 1.25 MG (07764 UT) capsule Med list cleanup List of [...] 24 hours. ergocalciferol (Vitamin D-2) 1.25 MG (08420 UT) capsule Take by mouth 1 (one) [...] 06/30/2023 2:26 PM documented in this encounter [facility] 06-30-2023 History of Presen t illness Narrative Patient verified by last name and date of . Images from the original note were not included. [facility] [address] [facility] [address] Visit type: Established Patient Reason for Visit: [...] Medication Reason ergocalciferol (Vitamin D-2) 1.25 MG (73321 UT) capsule Med list cleanup List of [...] 24 hours. ergocalciferol (Vitamin D-2) 1.25 MG (45686 UT) capsule Take by mouth 1 (one) [...] 06/30/2023 2:26 PM documented in this encounter [facility] 06-30-2023 Note Addended by: DELONTE MANDUJANO on: 07/05/2023 05:30 AM Modules accepted: Level of Service [facility] 06-14-2023 Telephone encounter Note Notified Nadira. [facility] 06-14-2023 Miscellaneous Notes Notified Nadira. Rx sent [...] Name of caller: Nadira Contact phone number: [phone] Relationship to Patient: patient Provider: Dr. Mandujano Practice: [facility] Chief Complaint/Reason for Call: Patient [...] their call: No documented in this encounter [facility] 06-14-2023 Telephone encounter Note Rx sent for Lasix which she can take once daily as needed for swelling. [facility] 06-14-2023 Telephone encounter Note Patient states she lives alone and doesn't think she can get one of the compression stockings on by herself so she needs something else to help with the swelling. [facility] 06-14-2023 Telephone encounter Note I did not send a water pill in for her. I gave her a prescription for the compression stockings and encouraged her to keep her feet elevated when sitting down. At her visit she said the water pill they prescribed in the ED did not work/help. [facility] 06-14-2023 Telephone encounter Note Name of caller: Nadira Contact phone number: [phone] Relationship to Patient: patient Provider: Dr. Mandujano Practice: [facility] Chief Complaint/Reason for Call: Patient states [...] business hours to return their call: No [facility] 06-11-2023 History of Presen t illness Narrative [...] as needed ergocalciferol (Vitamin D-2) 1.25 MG (61491 UT) capsule Take by mouth 1 (one) [...] 06/11/2023 9:54 AM documented in this encounter [facility] 06-07-2023 Emergency department Note Triage notes and assessment reviewed with REDDY Alvarenga; acuity assigned. Katie Gross RN 06/07/231705 [facility] 06-07-2023 Emergency department Note Triage notes and assessment reviewed with REDDY Avlarenga; acuity assigned. Katie Gross RN 06/07/231705 EMERGENCY [...] Culture. Procedure Abnormality Status --------- ------ Complete Urinalysis[[id number]] Abnormal Final result Please view results for [...] PATIENT REFERRED TO: MD [address] [facility] [phone] In 1 day Cesar Rothman DO [address] [facility] [address] In 1 day I prescribed: New [...] is within reach documented in this encounter [facility] 06-07-2023 Emergency department Triage note Pt presents to the ED with leg pain and cramping that starts at knee and travels intermittently down to her foot. Pt was wheeled back to the unit by family. Pt family is at bedside and call light is within reach [facility] 06-07-2023 Physician Emergency department Note EMERGENCY DEPARTMENT [...] Culture. Procedure Abnormality Status --------- ------ Complete Urinalysis[[id number]] Abnormal Final result Please view results for [...] PM PATIENT REFERRED TO: Nigel Frye MD [address] [place] [phone] In 1 day Cesar Rothman DO [address] [facility] [address] [facility] [address] In 1 day I prescribed: New Prescriptions [...] (electronically signed) Luis A Kiser MD 06/07/231901 [facility] 06-16-2022 Hospital Discharg e instructions Glenys Sanders [...] mild sore throat. You may use an [id number] chloraseptic spray, gargle with warm salt water, [...] in this encounter [facility] Work Phone: 11-16-2021 [facility] Discharg Mark Perez MD - 11/16/2021 Tylenol with pain. Use your boot to make it easier to walk. The following attachments cannot be sent through Care Everywhere.Ankle Sprain (Lithuanian)Fall Prevention (Lithuanian)Head Injury: Closed: General Info (Lithuanian)documented in this encounter [facility] Work Phone: documented in this encounter [facility] Work Phone: Evaluation note* Diagnosis Pedal edema- Primary Edema documented in this encounter [facility] Diagnosis Encounter to establish care- Primary Dependent edema Edema Acquired hypothyroidism Unspecified hypothyroidism Glaucoma, unspecified glaucoma type, unspecified laterality Hyperlipidemia, unspecified hyperlipidemia type documented in this encounter [facility] note* Diagnosis Type 2 diabetes mellitus with diabetic neuropathy, unspecified (HCC)- Primary Hypertensive chronic kidney disease with stage 1 through stage 4 chronic kidney disease, or unspecified chronic kidney disease Hyperlipidemia, unspecified Hypothyroidism, unspecified documented in this encounter [facility] note* Diagnosis Medicare annual wellness visit, subsequent- Primary 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, without long-term current use of insulin, unspecified laterality (HCC) Acquired hypothyroidism Unspecified hypothyroidism Hyperlipidemia, unspecified hyperlipidemia type documented in this encounter [facility] note* Diagnosis Medicare annual wellness visit, subsequent- Primary 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 * Dependent Edema Discharge Instructions (Lithuanian) [facility] Purpose Family History No Family History Records FoundNo Family History Records FoundNo Family History Records FoundNo Family History Records Found Advance Directives No Advanced Directives Records FoundDocuments on File Type Date Recorded Patient Environmental Protection Officer Expl anation ACP-Advance Directive ACP-Power of Director Of Institutional Research Documents on File Type Date Recorded Patient Environmental Protection Officer Expl anation Advance Directives and Living Will Power of Director Of Institutional Research Latest Code Status on File Code Status Date Activated Date Inactivated Comments Full Code 06/16/2022 10:27 AM Additional Source Comments INFORMATION SOURCE (unrecogn ized section and content) DATE CREATED AUTHOR AUTHOR'S ORGANIZ ATION 07/21/2019 [facility] DATE CREATED AUTHOR AUTHOR'S ORGANIZ ATION 06/22/2022 [facility] DATE CREATED AUTHOR AUTHOR'S ORGANIZ ATION 11/20/2023 [facility] Care Teams (unrecognized sec tion and content) Assembly Room Supervisor Relationship Specialty Start Date End Date Nigel Frye MD [address] [place] [phone] PCP - General 06/11/15 Assembly Room Supervisor Relationship Specialty Start Date End Date Nigel Frye MD [address] [place] [address] [phone] PCP - General 06/11/15 Assembly Room Supervisor Relationship Specialty Start Date End Date Nigel Frye MD [address] [place] [address] [phone] PCP - General 06/11/15 Assembly Room Supervisor Relationship Specialty Start Date End Date Nigel Frye MD [facility] [place] [address] PCP - General 04/29/19 Assembly Room Supervisor Relationship Specialty Start Date End Date Nigel Frye MD [facility] [place] [address] PCP - General 04/29/19 Assembly Room Supervisor Relationship Specialty Start Date End Date Nigel Frye MD [facility] [place] [address] PCP - General 04/29/19 Assembly Room Supervisor Relationship Specialty Start Date End Date Nigel Frye MD [facility] [place] [address] PCP - General 04/29/19 Assembly Room Supervisor Relationship Specialty Start Date End Date Delonte Mandujano MD [address] [place] [address], [facility] [place], [place] [phone] PCP - General Family Medicine 06/14/23 Assembly Room Supervisor Relationship Specialty Start Date End Date Delonte Mandujano MD [address] [facility] [place] [address] PCP - General Family Medicine 06/14/23 Assembly Room Supervisor Relationship Specialty Start Date End Date Nigel Frye MD [facility] [place] [phone] PCP - General 04/29/19 06/13/23 Delonte Mandujano MD [address] [place] [phone] PCP - General Family Medicine 06/14/23 Assembly Room Supervisor Relationship Specialty Start Date End Date Delonte Mandujano MD [address] [facility] [place] [address] PCP - General Family Medicine 06/14/23 Assembly Room Supervisor Relationship Specialty Start Date End Date Delonte Mandujano MD [address] [place] [address], [place] [address] PCP - General Family Medicine 06/14/23 Assembly Room Supervisor Relationship Specialty Start Date End Date Delnote Mandujano MD [address] [place] [address] [address] PCP - General Family Medicine 06/14/23 Assembly Room Supervisor Relationship Specialty Start Date End Date Delonte Mandujano MD [address] [facility] [place] [address] PCP - General Family Medicine 06/14/23 Reason [...] BE BASED ON THE PRIMARY CLINICAL RECORDS. [employer] provides no warranty or guarantee of the accuracy or completeness of information in this document.
[2023-12-01 07:52] LABS: Absolute Lymphocyte Count 0.98 X10^3/uL (0.83-4.51); Absolute Neutrophil Count 3.4 X10^3/uL (2.0-7.7); Basophil# 0.02 X10^3/uL; Basophil% 0.4 % (0-1); Eosinophil# 0.11 X10^3/uL; Eosinophils% 2.2 % (0-5); Hematocrit 30.5 % (37-47); Hemoglobin 10.1 g/dL (12.0-15.0); Lymphocyte # 0.98 X10^3/ul (0.83-4.51); Mean Corp Hgb Conc 33.1 g/dL (32-36); Mean Corpuscular Hgb 33.6 pg (27.0-32.0); Mean Corpuscular Volume 101.3 fL (81-99); Mean Platelet Vol. 9.8 fl (6.2-12.0); Monocyte# 0.42 X10^3/uL; Monocyte% 8.6 % (0-10); NRBC Flagged by Analyzer 0 % (0-5); Neutrophil # 3.36 X10^3/uL (2.7-7.7); Neutrophil % 68.4 % (47-70); POSITIVE COUNT YES; Platelet Count 92 K/mm3 (150-450); RBC Distribution Width CV 15.1 % (11.6-14.6); RBC Distribution Width SD 56.4 fl (35.1-43.9); Red Blood Count 3.01 M/mm3 (4.2-5.4); White Blood Count 4.9 K/mm3 (4.4-11.0)
--- NOTE | 2023-12-01 08:21 | PCM.PN.HOSP ---
Reason for Visit Reason for Visit: Diagnoses Legal blindness, as defined in [place] (12/01/23) Unspecified cirrhosis of liver (12/01/23) Acute cystitis without hematuria (12/01/23) Other ascites (12/01/23) Unspecified fall, initial encounter (12/01/23) Subjective Subjective Feels well. Objective Data Objective Data Vital Signs: Vital Signs Temp Pulse Resp BP Pulse Ox O2 Del Method 36.8 C 75 16 124/53 H 96 Room Air 12/01/23 05:16 12/01/23 05:16 12/01/23 05:16 12/01/23 05:16 12/01/23 05:16 12/01/23 05:16 Oxygen Delivery Method Room Air Weight: 53.07 kg Body Mass Index (BMI) 22.8 Intake & Output: Intake and Output for Last 24 Hours 11/29/23 11/30/23 12/01/23 23:59 23:59 23:59 Intake Total 50 / 50 Balance 50 / 50 Lab / Micro Data 12/01/23 07:25 12/01/23 07:25 Labs: Laboratory Results - last 24 hr 11/30/23 21:55: WBC 5.4, RBC 3.25 L, Hgb 10.9 L, Hct 32.5 L, MCV 100.0 H, MCH 33.5 H, MCHC 33.5, RDW Std Deviation 55.8 H, RDW Coeff of Nati 15.1 H, Plt Count 92 L, MPV 10.2, Immature Gran % (Auto) 0.400, Neut % (Auto) 66.7, Lymph % (Auto) 21.0, [place] % (Auto) 9.3, Eos % (Auto) 2.0, Baso % (Auto) 0.6, Absolute Neuts (auto) 3.6, Absolute Lymphs (auto) 1.13, Nucleated RBC % 0, Differential Comment SCANNED, PT 15.2 H, INR 1.2, Sodium 141, Potassium 3.4 L, Chloride 108 H, Carbon Dioxide 29.0, Anion Gap 4 L, BUN 12, Creatinine 0.84, Estim Creat Clear Calc 34.53, Est GFR (MDRD) Af Amer 82, Est GFR (MDRD) Non-Af 68, BUN/Creatinine Ratio 14.3, Glucose 109 H, Calcium 9.0, Total Bilirubin 3.90 H, Direct Bilirubin 0.88 H, AST 49 H, ALT 51, Alkaline Phosphatase 135 H, Troponin I High Sens 19, B-Natriuretic Peptide 114.8 H, Total Protein 5.5 L, Albumin 2.6 L, Globulin 2.9, Prealbumin 6.9 L, Triglycerides 83, Cholesterol 121, LDL Cholesterol 62, VLDL Cholesterol 17, HDL Cholesterol 42 11/30/23 23:18: Urine Color Yellow, Urine Clarity Clear, Urine pH 5.0, Ur Specific [place] 1.015, Urine Protein Negative, Urine Glucose (UA) Normal, Urine Ketones Negative, Urine Occult Blood 25 H, Urine Nitrite Negative, Urine Bilirubin Negative, Urine Urobilinogen 1 H, Ur Leukocyte Esterase 500 H, Urine RBC 0 SEEN, Urine WBC 10-25 SEEN, Ur Squamous Epith Cells 0 SEEN, Urine Bacteria 2+, Urine Mucus 0 SEEN 12/01/23 00:25: Ammonia 53.0 H 12/01/23 07:25: WBC 4.9, RBC 3.01 L, Hgb 10.1 L, Hct 30.5 L, MCV 101.3 H, MCH 33.6 H, MCHC 33.1, RDW Std Deviation 56.4 H, RDW Coeff of Nati 15.1 H, Plt Count 92 L, MPV 9.8, Immature Gran % (Auto) 0.400, Neut % (Auto) 68.4, Lymph % (Auto) 20.0, [place] % (Auto) 8.6, Eos % (Auto) 2.2, Baso % (Auto) 0.4, Absolute Neuts (auto) 3.4, Absolute Lymphs (auto) 0.98, Nucleated RBC % 0 Radiography Diagnostic Testing: Radiology Impression Brain CT 11/30/23 21:41 IMPRESSION: Chronic involutional and white matter changes. No evidence of acute intracranial abnormality. Electronically Signed: Ernesto Pate MD at 22:26 EST , Cervical Spine CT 11/30/23 21:41 IMPRESSION: No evidence of acute cervical spinal injury. Electronically Signed: Ernesto Pate MD at 22:27 EST , Chest X-Ray 11/30/23 22:05 IMPRESSION: No radiographic evidence of acute cardiopulmonary disease. Electronically Signed: Ernesto Pate MD at 22:28 EST , Abdomen/Pelvis CT 11/30/23 23:35 IMPRESSION: Cirrhotic liver with changes of portal hypertension. Small volume ascites. No pancreatic lesion or inflammation seen. Electronically Signed: Anibal Durán MD at 0:18 EST , Physical Exam Const alert and no apparent distress HEENT head/scalp atraumatic Extremity General Extremity: edema bilateral lower extremity (TTP. no lymphedematous changes. ) Details: mild Neuro Sensorium / Orientation: awake and alert Assessment & Plan Assessment/Plan (1) Accident due to mechanical fall without injury: QUALIFIERS: Encounter type: initial encounter Qualified Code(s): W19.XXXA - Unspecified fall, initial encounter (2) Legally blind: (3) Cirrhosis: QUALIFIERS: Ascites presence: with ascites Hepatic cirrhosis type: unspecified hepatic cirrhosis Qualified Code(s): K74.60 - Unspecified cirrhosis of liver; R18.8 - Other ascites (4) Acute cystitis without hematuria: PLAN: Plan Mechanical fall at home in the setting of chronic and progressively worsening generalized weakness with ambulatory dysfunction Give low-dose ibuprofen as needed for pain or fever. PT/OT and case management consult and treat in the a.m. for further recommendations regarding ECF placement with help appreciated in advance. Acute Cystitis; suspected. UA equivocal w WBCs of 10-25. Continue Rocephin 1g IV daily and await culture and sensitivity data. If Cx negative, then would dc abx. Mild hypokalemia of 3.4 mmol/L present on admission - Give supplemental potassium chloride and recheck level in a.m. to ensure improvement. Chronic conditions: Patient legally blind with history of glaucoma and can no longer safely live independently complicating #1 History of cirrhosis with hyperbilirubinemia of 3.9 mg/dL and elevated alkaline phosphatase of 135 present on admission compounding #1 & #2 - Checked CT scan of the abdomen pelvis to evaluate for possible mass versus microlithiasis; which shows only evidence of cirrhosis. Check ammonia level. Serialize CMP's to monitor response to treatment. Avoid Tylenol and other potentially hepatotoxic agents. Finally, we will consult Dr. Cornell of gastroenterology to see this patient on rounds in the a.m. for further recommendations with help appreciated in advance. Essential hypertension - Resume home regimen plus give as needed IV hydralazine for systolic blood pressure greater than 160 mmHg. Hyperlipidemia - Continue statin and check lipid profile this admission. Hypothyroidism - Resume Synthroid as previous and check TSH this admission. History of cholecystectomy History of hysterectomy DVT prophylaxis - SCD's only at this time given patient's thrombocytopenia of 92 present on admission relatively contraindicating heparin and heparinoid's. Disposition: To custodial facility. Patient will be self-pay. Patient trip to screen due to her blindness ocelot be evaluated. Once that is resolved and patient can be discharged. DW family at bedside. Charges/Coding Visit Charges Inpatient E&M: 27547 Subs Hosp L2
[2023-12-01 08:25] LABS: ALB/GLOB Ratio 0.8 RATIO (0.9-2.4); AST(SGOT) 47 U/L (15-37); Alanine Aminotransfer ALT/SGPT 48 U/L (13-56); Albumin, Serum 2.3 g/dL (3.2-5.0); Alkaline Phosphatase 106 U/L (45-117); Anion Gap 5 (5-15); BUN 12 mg/dL (7-18); BUN/Creat Ratio 14.4 RATIO (10-20); Calcium,Total 8.6 mg/dL (8.5-10.1); Chloride 110 mmol/L (98-107); Creatinine, Serum 0.84 mg/dL (0.55-1.02); EST Glomerular Filtration Rate 69 mL/min (>60); Est Glom Filt Rate - Afr Amer 83 mL/min (>60); Estimated Creatinine Clearance 34.53 ml/min; Globulin 2.8 g/dL (2.2-4.2); Glucose 86 mg/dL (74-106); Phosphorus 2.5 mg/dL (2.5-4.9); Protein, Total 5.1 g/dL (6.4-8.2); Sodium Level 140 mmol/L (136-145)
[2023-12-01] MEDS: Bisacodyl 5 MG Tablet 10 MG PO (08:27)
[2023-12-01] MEDS: Ensure Plus High Protein 120 ML LIQUID PO ×4 (08:28→17:25)
[2023-12-01] MEDS: Atorvastatin Calcium 40 MG Tablet PO (08:28)
[2023-12-01] MEDS: Pyridoxine HCl 100 MG Tablet PO (08:28)
--- NOTE | 2023-12-01 09:01 | CASEMGMT ---
Discharge Planning A list of SNF providers including quality and resource use data and consistent with the patient's preferred geographic region, medical needs, and insurance network was created in [facility] Guide.? This list was provided to the SW. Daina Georges Discharge Planning Asst.
[2023-12-01 09:15] VITALS: BP 131/48; PULSE 74; RESP 14; TEMP 36.8; O2SAT 97
[2023-12-01] MEDS: Spironolactone 50 MG Tablet PO (09:51)
[2023-12-01] MEDS: Levothyroxine 25 MCG TABLET PO (09:52)
--- NOTE | 2023-12-01 10:24 | CASEMGMT ---
[facility]charge [facility] Daina Georges, Discharge Planning Asst.
--- NOTE | 2023-12-01 10:52 | CASEMGMT ---
Addendum entered by Araceli Valdivia 12/01/23 12:05: Social Work SW updated pt's son that [facility] can accept pt and that Department of Developmental Disability will need to clear pt for admission to ECF. Pt to remain in hospital until Level II assessment is completed. RIMA Steiner Original Note: Social Work SW met with pt, pt's son, dgt in law and granddaughter and introduced self and role of SW. Pt's family states pt lives at home alone and is no longer safe in this environment. Pt lives alone and is legally blind. Pt presents with a fall last night and this is the second fall recently. Pt's independence is hampered by her vision. Pt family is requesting care home ECF placement. A list of SNF providers including quality and resource use data and consistent with the patient?s preferred geographic region, medical needs, and insurance network were provided from the [employer] Guide. Family preferred provider is [facility]. DOROTHEA explained to family inpatient vs. observation status and that due to observation status, pt will not qualify for Medicare to pay for SNF stay. Family does indicate pt has finances to pay for nursing facility stay. DC assistant secretary updated and referral sent to [facility]. Pt has been accepted. PASRR completed in [facility] and pt will require a level II assessment by the Department of DD due to being Legally Blind. Requested information uploaded into [employer]. Plan: [facility], pending approval from the Board of DD. RIMA Steiner
[2023-12-01 14:05] VITALS: BP 110/47; PULSE 79; RESP 15; TEMP 36.7; O2SAT 99
[2023-12-01 22:00] VITALS: BP 109/53; PULSE 74; RESP 18; TEMP 36.8; O2SAT 98
[2023-12-01] MEDS: Latanoprost 0.005% 1 Bottle 1 DRP EACH EYE (22:32)
[2023-12-02] MEDS: Levothyroxine 25 MCG TABLET PO (03:02)
[2023-12-02] MEDS: Ibuprofen 400 MG Tablet 200 MG PO ×2 (03:02→10:04)
[2023-12-02 03:05] VITALS: BP 123/52; PULSE 78; RESP 18; TEMP 36.9; O2SAT 98
--- NOTE | 2023-12-02 07:48 | PN.HOSP_ITS ---
Subjective Subjective No new events. Wants to go home, but understands that she needs rehabilitation before hand. Objective Data Objective Data Vital Signs: Vital Signs Temp Pulse Resp BP Pulse Ox O2 Del Method 36.9 C 78 18 123/52 H 98 Room Air 12/02/23 03:05 12/02/23 03:05 12/02/23 03:05 12/02/23 03:05 12/02/23 03:05 12/02/23 03:05 Oxygen Delivery Method Room Air Weight: 53.07 kg Body Mass Index (BMI) 22.8 Intake & Output: Intake and Output for Last 24 Hours 11/30/23 12/01/23 12/02/23 23:59 23:59 23:59 Intake Total 100 / 100 Output Total 100 / 100 250 / 250 Balance 0 / 0 -250 / -250 Medical Nutrition Assessment Dietitian: Malnutrition Criteria Met Start: 12/01/23 11:42 Freq: Status: Active Protocol: Document 12/01/23 11:42 AG (Rec: 12/01/23 11:42 AG Desktop) Nutrition Malnutrition Evidence of Malnutrition Exists Yes Malnutrition (moderate): Chronic Evidenced By Suboptimal Energy Intake ( Moderate),Physical Changes ( Mild) Clinical Problem Chronic Disease or Condition Related Malnutrition Etiology moderate, chronic malnutrition related to inadequate energy intake w/ advanced age Signs/Symptoms as evidenced by estimated PO intake meeting <75% of estimated energy needs > 3 months, mild muscle wasting/ fat loss evident per physical exam in orbital, clavicle, and temporal areas. Status Active Problem Recommendation Dietitian Recommendations/Changes recommend advance diet as tolerated to regular; will adjust ensure to 120mL 4x/day w/ medpass for additional nutrition if consumed. Lab / Micro Data 12/01/23 07:25 12/01/23 07:25 Labs: Laboratory Results - last 24 hr 12/01/23 07:25: WBC 4.9, RBC 3.01 L, Hgb 10.1 L, Hct 30.5 L, MCV 101.3 H, MCH 33.6 H, MCHC 33.1, RDW Std Deviation 56.4 H, RDW Coeff of Nati 15.1 H, Plt Count 92 L, MPV 9.8, Immature Gran % (Auto) 0.400, Neut % (Auto) 68.4, Lymph % (Auto) 20.0, [place] % (Auto) 8.6, Eos % (Auto) 2.2, Baso % (Auto) 0.4, Absolute Neuts (auto) 3.4, Absolute Lymphs (auto) 0.98, Nucleated RBC % 0, Sodium 140, Potassium 4.0, Chloride 110 H, Carbon Dioxide 25.0, Anion Gap 5, BUN 12, Creatinine 0.84, Estim Creat Clear Calc 34.53, Est GFR (MDRD) Af Amer 83, Est GFR (MDRD) Non-Af 69, BUN/Creatinine Ratio 14.4, Glucose 86, Calcium 8.6, Phosphorus 2.5, Magnesium 2.0, Total Bilirubin 3.20 H, AST 47 H, ALT 48, Alkaline Phosphatase 106, Total Protein 5.1 L, Albumin 2.3 L, Globulin 2.8, Albumin/Globulin Ratio 0.8 L, TSH 3.90 H Physical Exam Const alert and no apparent distress Constitutional Narrative: playing with her nursing call button, taking the safety pin of. HEENT head/scalp atraumatic Assessment & Plan Assessment/Plan (1) Accident due to mechanical fall without injury: QUALIFIERS: Encounter type: initial encounter Qualified Code(s): W19.XXXA - Unspecified fall, initial encounter (2) Legally blind: (3) Cirrhosis: QUALIFIERS: Ascites presence: with ascites Hepatic cirrhosis type: unspecified hepatic cirrhosis Qualified Code(s): K74.60 - Unspecified cirrhosis of liver; R18.8 - Other ascites (4) Acute cystitis without hematuria: PLAN: Plan Mechanical fall at home in the setting of chronic and progressively worsening generalized weakness with ambulatory dysfunction * Give low-dose ibuprofen as needed for pain or fever. PT/OT and case management consult and treat in the a.m. for further recommendations regarding ECF placement with help appreciated in advance. Acute Cystitis; * suspected. UA equivocal w WBCs of 10-25. * Continue Rocephin 1g IV daily and await culture and sensitivity data. If Cx negative, then would dc abx. Mild hypokalemia of 3.4 mmol/L present on admission - Give supplemental potassium chloride and recheck level in a.m. to ensure improvement. Chronic conditions: * Patient legally blind with history of glaucoma and can no longer safely live independently complicating #1 * History of cirrhosis with hyperbilirubinemia of 3.9 mg/dL and elevated alkaline phosphatase of 135 present on admission compounding #1 & #2 - Checked CT scan of the abdomen pelvis to evaluate for possible mass versus microlithiasis; which shows only evidence of cirrhosis. Check ammonia level. Serialize CMP's to monitor response to treatment. Avoid Tylenol and other potentially hepatotoxic agents. Finally, we will consult Dr. Cornell of gastroenterology to see this patient on rounds in the a.m. for further recommendations with help appreciated in advance. * Essential hypertension - Resume home regimen plus give as needed IV hydralazine for systolic blood pressure greater than 160 mmHg. * Hyperlipidemia - Continue statin and check lipid profile this admission. * Hypothyroidism - Resume Synthroid as previous and check TSH this admission. * History of cholecystectomy * History of hysterectomy DVT prophylaxis - SCD's only at this time given patient's thrombocytopenia of 92 present on admission relatively contraindicating heparin and heparinoid's. Disposition: To snf facility. Patient will be self-pay. Patient trip to screen due to her blindness. Once that is resolved and patient can be discharged. DW family at bedside.
[2023-12-02 10:00] VITALS: BP 114/53; PULSE 82; RESP 16; TEMP 36.6; O2SAT 100
[2023-12-02] MEDS: Ensure Plus High Protein 120 ML LIQUID PO ×3 (10:04→16:54)
[2023-12-02] MEDS: Atorvastatin Calcium 40 MG Tablet PO (10:05)
[2023-12-02] MEDS: Bisacodyl 5 MG Tablet 10 MG PO (10:05)
[2023-12-02] MEDS: Spironolactone 50 MG Tablet PO (10:05)
[2023-12-02] MEDS: Pyridoxine HCl 100 MG Tablet PO (10:05)
--- NOTE | 2023-12-02 11:27 | CASEMGMT ---
Met with patient to complete VALDOVINOS form. VALDOVINOS form explained to patient who voiced understanding. Patient requested that her son, Elijah, be called and form reviewed with him also. Patients son verbally consented to form. Original form placed in pt?s chart and copy provided to?patient. Daina Georges, Discharge Planning Asst
[2023-12-02 13:42] VITALS: BP 122/45; PULSE 88; RESP 16; TEMP 36.8; O2SAT 98
[2023-12-02 22:28] VITALS: BP 123/51; PULSE 78; RESP 18; TEMP 36.7; O2SAT 96
[2023-12-02] MEDS: Timolol 0.5% 5ML OPTH.BTL 1 DRP OPHTHALMIC (22:28)
[2023-12-02] MEDS: BRIMONIDINE 0.2% 5ML BOTTLE 1 DRP EACH EYE (22:28)
[2023-12-02] MEDS: Latanoprost 0.005% 1 Bottle 1 DRP LEFT EYE (22:28)
[2023-12-02] MEDS: Ceftriaxone 1 GM/50 ML BAG IV (22:29)
[2023-12-03 05:00] VITALS: BP 116/46; PULSE 85; RESP 18; TEMP 37; O2SAT 95
[2023-12-03] MEDS: Levothyroxine 25 MCG TABLET PO (05:04)
--- NOTE | 2023-12-03 07:41 | PN.HOSP_ITS ---
Subjective Subjective No events. Feels well. Objective Data Objective Data Vital Signs: Vital Signs Temp Pulse Resp BP Pulse Ox O2 Del Method 37.0 C 85 18 116/46 L 95 Room Air 12/03/23 05:00 12/03/23 05:00 12/03/23 05:00 12/03/23 05:00 12/03/23 05:00 12/03/23 05:00 Oxygen Delivery Method Room Air Weight: 53.07 kg Body Mass Index (BMI) 22.8 Intake & Output: Intake and Output for Last 24 Hours 12/01/23 12/02/23 12/03/23 23:59 23:59 23:59 Intake Total 100 / 100 750 / 750 Output Total 100 / 100 350 / 350 250 / 250 Balance 0 / 0 400 / 400 -250 / -250 Medical Nutrition Assessment Dietitian: Malnutrition Criteria Met Start: 12/01/23 11:42 Freq: Status: Active Protocol: Document 12/01/23 11:42 AG (Rec: 12/01/23 11:42 AG Desktop) Nutrition Malnutrition Evidence of Malnutrition Exists Yes Malnutrition (moderate): Chronic Evidenced By Suboptimal Energy Intake ( Moderate),Physical Changes ( Mild) Clinical Problem Chronic Disease or Condition Related Malnutrition Etiology moderate, chronic malnutrition related to inadequate energy intake w/ advanced age Signs/Symptoms as evidenced by estimated PO intake meeting <75% of estimated energy needs > 3 months, mild muscle wasting/ fat loss evident per physical exam in orbital, clavicle, and temporal areas. Status Active Problem Recommendation Dietitian Recommendations/Changes recommend advance diet as tolerated to regular; will adjust ensure to 120mL 4x/day w/ medpass for additional nutrition if consumed. Lab / Micro Data 12/01/23 07:25 12/01/23 07:25 Micro: Microbiology 11/30/23 23:18 Urine, Catheterized Urine Culture - Preliminary GNR lactose last inserter Physical Exam Const alert and no apparent distress Resp normal respiratory effort and no retractions Cardio regular rate, regular rhythm, S1 normal heart sound and S2 normal heart sound GI normal to inspection, nondistended, normoactive bowel sounds Assessment & Plan Assessment/Plan (1) Accident due to mechanical fall without injury: QUALIFIERS: Encounter type: initial encounter Qualified Code(s): W19.XXXA - Unspecified fall, initial encounter (2) Legally blind: (3) Cirrhosis: QUALIFIERS: Ascites presence: with ascites Hepatic cirrhosis type: unspecified hepatic cirrhosis Qualified Code(s): K74.60 - Unspecified cirrhosis of liver; R18.8 - Other ascites (4) Acute cystitis without hematuria: PLAN: Plan Mechanical fall at home in the setting of chronic and progressively worsening generalized weakness with ambulatory dysfunction * Give low-dose ibuprofen as needed for pain or fever. PT/OT and case management consult and treat in the a.m. for further recommendations regarding ECF placement with help appreciated in advance. Acute Cystitis; * suspected. UA equivocal w WBCs of 10-25. However, UCx showing greater than 100k of GNR. * Continue Rocephin 1g IV daily and await culture and sensitivity data. Mild hypokalemia of 3.4 mmol/L present on admission - Give supplemental potassium chloride and recheck level in a.m. to ensure improvement. Chronic conditions: * Patient legally blind with history of glaucoma and can no longer safely live independently complicating #1 * History of cirrhosis with hyperbilirubinemia of 3.9 mg/dL and elevated alkaline phosphatase of 135 present on admission compounding #1 & #2 - Checked CT scan of the abdomen pelvis to evaluate for possible mass versus microlithiasis; which shows only evidence of cirrhosis. Check ammonia level. Serialize CMP's to monitor response to treatment. Avoid Tylenol and other potentially hepatotoxic agents. Finally, we will consult Dr. Cornell of gastroenterology to see this patient on rounds in the a.m. for further recommendations with help appreciated in advance. * Essential hypertension - Resume home regimen plus give as needed IV hydralaz ine for systolic blood pressure greater than 160 mmHg. * Hyperlipidemia - Continue statin and check lipid profile this admission. * Hypothyroidism - Resume Synthroid as previous and check TSH this admission. * History of cholecystectomy * History of hysterectomy DVT prophylaxis - SCD's only at this time given patient's thrombocytopenia of 92 present on admission relatively contraindicating heparin and heparinoid's. Disposition: To long term facility. Patient will be self-pay. Patient t rip to screen due to her blindness. Once that is resolved and patient can be discharged. Charges/Coding Visit Charges Inpatient E&M: 86459 Subs Hosp L2
[2023-12-03 08:05] VITALS: BP 105/38; PULSE 83; RESP 18; TEMP 37.2; O2SAT 97
[2023-12-03] MEDS: Pyridoxine HCl 100 MG Tablet PO (10:22)
[2023-12-03] MEDS: BRIMONIDINE 0.2% 5ML BOTTLE 1 DRP EACH EYE ×2 (10:22→20:26)
[2023-12-03] MEDS: Atorvastatin Calcium 40 MG Tablet PO (10:22)
[2023-12-03] MEDS: Timolol 0.5% 5ML OPTH.BTL 1 DRP OPHTHALMIC ×2 (10:22→20:31)
[2023-12-03] MEDS: Bisacodyl 5 MG Tablet 10 MG PO (10:22)
[2023-12-03] MEDS: Spironolactone 50 MG Tablet PO (10:23)
[2023-12-03] MEDS: Ensure Plus High Protein 120 ML LIQUID PO ×2 (10:29→14:04)
--- NOTE | 2023-12-03 11:47 | CASEMGMT ---
Social Work SW met with pt to discuss advance directives.? Pt confirms she has completed a living will and health care POA naming her sons Elijah and Mir Silva.? Pt notified that documents are not on file at [facility] and SW requested they be brought in for scanning into the EMR.? RIMA Steiner
[2023-12-03 12:17] LABS: Ferritin 446 ng/mL (8-252)
[2023-12-03 14:02] VITALS: BP 109/48; PULSE 77; RESP 18; TEMP 37.1; O2SAT 98
--- NOTE | 2023-12-03 16:01 | CON.PCM.GI_ITS ---
HPI Consult Data Date of Consult: 12/03/23 HPI Narrative Reason for Consultation: Cirrhosis HPI Narrative: KUMAR SILVA, is a 88 F with a past medical history of essential hypertension, hyperlipidemia, hypothyroidism, glaucoma, legally blind, history of hysterectomy, history of cholecystectomy and history of cirrhosis with severe hyperbilirubinemia of ~3 mg/dL; who presents to [facility] ER complaining of fall at home. Ms. Silva is a poor historian but she has a granddaughter who h explained most of her past medical history to me at the bedside. Apparently she was at home this evening and was able to hit her life alert button with EMS promptly responding. She was found wedged between the wall and the chest and was unable to get up. She is unsure if she had a loss of consciousness. Her family does not notice increasing lower extremity edema and abdominal distention that also seems to be getting progressively worse. She is not complaining of abdominal pain, chest pain, shortness of breath or hip pain at this time. Her family was attempting to get her into an extended care facility but she has been refusing. There is no report of associated fever, chills, nausea, vomiting, diarrhea or constipation. In the ER she was diagnosed with a suspected mechanical fall complicated by generalized weakness with ambulatory dysfunction and severe hyperbilirubinemia of 3.9 mg/dL present on admission with a direct bilirubin of 0.88 mg/dL present on admission along with an alkaline phosphatase of 135 and an AST of 49 and an ALT of 51 (with a BNP of 114.8) with mild hypokalemia of 3.4 mmol/L As per the patient she has had no episodes of ascites, encephalopathy, jaundice or GI bleeding. She was identified as having nonalcoholic state of otitis multiple years ago and was told that likely would develop into cirrhosis. I was called to see her due to a CT scan abdomen pelvis showing that she does have a nodular liver consistent with cirrhosis without blood clot or filling lesion, mass lesion or any other problem in the liver. She also was discovered to have mild ascites. [facility] Home Medications atorvastatin 40 mg tablet 40 mg PO DAILY 11/30/23 [History Last Taken Unknown] bisacodyl 5 mg tablet,delayed release (Dulcolax (bisacodyl)) 10 mg PO DAILY 11/30/23 [History Last Taken Unknown] ergocalciferol (vitamin D2) 1,250 mcg (50,000 unit) capsule 1,250 mcg PO QWEEK 11/30/23 [History Last Taken Unknown] latanoprost 0.005 % eye drops See Rx Instructions .Route QPM 11/30/23 [History Last Taken Unknown] levothyroxine 25 mcg tablet (Euthyrox) 25 mcg PO DAILY 11/30/23 [History Last Taken Unknown] pyridoxine (vitamin B6) 50 mg capsule (Vitamin B-6) 100 mg PO DAILY 11/30/23 [History Last Taken Unknown] spironolactone 50 mg tablet (Aldactone) 50 mg PO DAILY 11/30/23 [History Last Taken Unknown] brimonidine 0.2 %-timolol 0.5 % eye drops 1 drp ophthalmic (eye) BID 12/02/23 [History Last Taken Unknown] Allergy/AdvReac Type Severity Reaction Status Date / Time No Known Allergies Allergy Verified 11/30/23 20:27 Surgical History H/O: hysterectomy History of cholecystectomy Social History Smoking Status: Never smoker ROS Review of Systems ROS Unobtainable: other Constitutional Constitutional: Denies fatigue, fever(s), poor appetite, weight gain or weight loss ENT HEENT: Denies mouth lesions Cardiovascular Cardiovascular: Denies abdominal bloating, abdominal edema or abdominal pain Respiratory/Chest Respiratory/Chest: Denies change in mental status, change in phlegm color, chest congestion or chest tightness Gastrointestinal Gastrointestinal: Denies belching, bloating, change in bowel habits, change in stool character, chewing difficulty, coffee ground emesis, constipation, cramping, diarrhea, dyspepsia, dysphagia, early satiety, excessive flatus, fecal incontinence, heartburn, hematemesis, hematochezia, hemorrhoids, loose stools, melena, nausea, odynophagia, rectal bleeding, tenesmus, vomiting or weight changes Genitourinary Genitourinary: Denies abdominal discomfort, burning urination or itching Musculoskeletal Musculoskeletal: Reports as per HPI; Denies muscle weakness or myalgias Integumentary Integumentary: Denies jaundice Neurologic Neurologic: Denies lack of coordination or weakness Psychiatric Psychiatric: Denies confusion, depression, memory loss, mood swings, paranoia or suicidal ideation Endocrine Endocrinology: Denies systems reviewed and no addt'l complaints, except as documented Hematologic/Lymphatic Hematologic/Lymphatic: Denies anemia, easy bleeding, easy bruising or lymphadenopathy Allergic/Immunologic Allergic/Immunologic: Denies systems reviewed and no addt'l complaints, except as documented Physical Exam Const alert and no apparent distress Resp normal respiratory effort and no retractions Cardio regular rate, regular rhythm, S1 normal heart sound and S2 normal heart sound GI normal to inspection, nondistended, normoactive bowel sounds Medical Records Data Medical Nutrition Assessment Dietitian: Malnutrition Criteria Met Start: 12/01/23 11:42 Freq: Status: Active Protocol: Document 12/01/23 11:42 AG (Rec: 12/01/23 11:42 AG Desktop) Nutrition Malnutrition Evidence of Malnutrition Exists Yes Malnutrition (moderate): Chronic Evidenced By Suboptimal Energy Intake ( Moderate),Physical Changes ( Mild) Clinical Problem Chronic Disease or Condition Related Malnutrition Etiology moderate, chronic malnutrition related to inadequate energy intake w/ advanced age Signs/Symptoms as evidenced by estimated PO intake meeting <75% of estimated energy needs > 3 months, mild muscle wasting/ fat loss evident per physical exam in orbital, clavicle, and temporal areas. Status Active Problem Recommendation Dietitian Recommendations/Changes recommend advance diet as tolerated to regular; will adjust ensure to 120mL 4x/day w/ medpass for additional nutrition if consumed. Lab / Micro Data 12/01/23 07:25 12/01/23 07:25 Labs: Laboratory Results - last 24 hr 12/03/23 11:05: Ferritin 446 H Micro: Microbiology 11/30/23 23:18 Urine, Catheterized Urine Culture - Preliminary GNR lactose medical instructor Assessment & Plan Assessment/Plan (1) Cirrhosis: QUALIFIERS: Hepatic cirrhosis type: unspecified hepatic cirrhosis Ascites presence: with ascites Qualified Code(s): K74.60 - Unspecified cirrhosis of liver; R18.8 - Other ascites PLAN: None steatohepatitis with cirrhosis and a current meld of 14 and a child Ledesma class A. That carries a 15% 90-day post hospital mortality. She her labs are consistent with a cholestatic appetite is secondary to cirrhosis. She does have some mild fluid in her lower extremities but is only +1. I do not think she would benefit from a diagnostic paracentesis at this time. I do recommend that she go on lactulose 10 cc twice a day and titrate up to 3 bowel movements a day, Xifaxan 550 mg twice a day. Consider nadolol 10 mg p.o. twice daily for variceal prophylaxis further recommendation to follow. She will also need screening for hepatocellular carcinoma with alpha- fetoprotein.She is not a candidate for TIPS or transplant evaluation at this time. Charges/Coding Visit Charges Inpatient E&M: 86453 Init Hosp L3
--- NOTE | 2023-12-03 16:24 | CASEMGMT ---
Social Work Level II determination from the department of DD not yet received. Phone call to pt's son and updated that pt will be here through the weekend. VM left for Emilee at the [facility] and updated on the same. Plan: [facility] [place], pending review from the Department of DD RIMA Steiner
[2023-12-03 20:00] VITALS: O2SAT 96
[2023-12-03] MEDS: Ibuprofen 400 MG Tablet 200 MG PO (20:06)
[2023-12-03] MEDS: Latanoprost 0.005% 1 Bottle 1 DRP LEFT EYE (20:28)
[2023-12-03] MEDS: Ceftriaxone 1 GM/50 ML BAG IV (20:34)
[2023-12-03 20:40] VITALS: BP 121/52; PULSE 79; RESP 16; TEMP 37; O2SAT 95
[2023-12-04 04:22] VITALS: BP 107/50; PULSE 71; RESP 16; TEMP 36.8; O2SAT 95
[2023-12-04] MEDS: Levothyroxine 25 MCG TABLET PO (04:25)
--- NOTE | 2023-12-04 07:35 | PN.HOSP_ITS ---
Reason for Visit Reason for Visit: Feels well. No new events. Objective Data Objective Data Vital Signs: Vital Signs Temp Pulse Resp BP Pulse Ox O2 Del Method 36.8 C 71 16 107/50 L 95 Room Air 12/04/23 04:22 12/04/23 04:22 12/04/23 04:22 12/04/23 04:22 12/04/23 04:22 12/04/23 04:22 Oxygen Delivery Method Room Air Weight: 53.07 kg Body Mass Index (BMI) 22.8 Intake & Output: Intake and Output for Last 24 Hours 12/02/23 12/03/23 12/04/23 23:59 23:59 23:59 Intake Total 750 / 750 750 / 850 100 / 100 Output Total 350 / 350 500 / 800 500 / 500 Balance 400 / 400 250 / 50 -400 / -400 Medical Nutrition Assessment Dietitian: Malnutrition Criteria Met Start: 12/01/23 11:42 Freq: Status: Active Protocol: Document 12/01/23 11:42 AG (Rec: 12/01/23 11:42 AG Desktop) Nutrition Malnutrition Evidence of Malnutrition Exists Yes Malnutrition (moderate): Chronic Evidenced By Suboptimal Energy Intake ( Moderate),Physical Changes ( Mild) Clinical Problem Chronic Disease or Condition Related Malnutrition Etiology moderate, chronic malnutrition related to inadequate energy intake w/ advanced age Signs/Symptoms as evidenced by estimated PO intake meeting <75% of estimated energy needs > 3 months, mild muscle wasting/ fat loss evident per physical exam in orbital, clavicle, and temporal areas. Status Active Problem Recommendation Dietitian Recommendations/Changes recommend advance diet as tolerated to regular; will adjust ensure to 120mL 4x/day w/ medpass for additional nutrition if consumed. Lab / Micro Data 12/01/23 07:25 12/01/23 07:25 Labs: Laboratory Results - last 24 hr 12/03/23 11:05: Ferritin 446 H Micro: Microbiology 11/30/23 23:18 Urine, Catheterized Urine Culture - Preliminary GNR lactose training systems officer Physical Exam Const alert and no apparent distress Neuro Sensorium / Orientation: awake and alert Psych affect normal Assessment & Plan Assessment/Plan (1) Accident due to mechanical fall without injury: QUALIFIERS: Encounter type: initial encounter Qualified Code(s): W19.XXXA - Unspecified fall, initial encounter (2) Legally blind: (3) Cirrhosis: QUALIFIERS: Ascites presence: with ascites Hepatic cirrhosis type: unspecified hepatic cirrhosis Qualified Code(s): K74.60 - Unspecified cirrhosis of liver; R18.8 - Other ascites (4) Acute cystitis without hematuria: PLAN: Plan Mechanical fall at home in the setting of chronic and progressively worsening generalized weakness with ambulatory dysfunction * Give low-dose ibuprofen as needed for pain or fever. PT/OT and case management consult and treat in the a.m. for further recommendations regarding ECF placement with help appreciated in advance. Acute Cystitis; * +klebsiella, sensitive to all but ampicillin. Change to nitrofurantoin. Mild hypokalemia * Resolved after replacement. * 3.4 mmol/L present on admission Chronic conditions: * Patient legally blind with history of glaucoma and can no longer safely live independently complicating #1 * History of cirrhosis with hyperbilirubinemia of 3.9 mg/dL and elevated alkaline phosphatase of 135 present on admission compounding #1 & #2 - Checked CT scan of the abdomen pelvis to evaluate for possible mass versus microl ithiasis; which shows only evidence of cirrhosis. Check ammonia level. Serialize CMP's to monitor response to treatment. Avoid Tylenol and other potentially hepatotoxic agents. Finally, we will consult Dr. Cornell of gastroenterology to see this patient on rounds in the a.m. for further recommendations with help appreciated in advance. * Essential hypertension - Resume home regimen plus give as needed IV hydralazine for systolic blood pressure greater than 160 mmHg. * Hyperlipidemia - Continue statin and check lipid profile this admission. * Hypothyroidism - Resume Synthroid as previous and check TSH this admission. * History of cholecystectomy * History of hysterectomy DVT prophylaxis - SCD's only at this time given patient's thrombocytopenia of 92 present on admission relatively contraindicating heparin and heparinoid's. Disposition: To [facility] facility. Patient will be self-pay. Patient trip to screen due to her blindness. Once that is resolved and patient can be discharged. Charges/Coding Visit Charges Inpatient E&M: 90175 [facility] Hosp L1
[2023-12-04 09:04] VITALS: BP 104/50; PULSE 65; RESP 18; TEMP 36.6; O2SAT 96
[2023-12-04] MEDS: Spironolactone 50 MG Tablet PO (09:09)
[2023-12-04] MEDS: Bisacodyl 5 MG Tablet 10 MG PO (09:10)
[2023-12-04] MEDS: Atorvastatin Calcium 40 MG Tablet PO (09:10)
[2023-12-04] MEDS: BRIMONIDINE 0.2% 5ML BOTTLE 1 DRP EACH EYE ×2 (09:10→21:14)
[2023-12-04] MEDS: Ensure Plus High Protein 120 ML LIQUID PO ×3 (09:11→21:19)
[2023-12-04] MEDS: Timolol 0.5% 5ML OPTH.BTL 1 DRP OPHTHALMIC ×2 (09:11→21:19)
[2023-12-04] MEDS: Pyridoxine HCl 100 MG Tablet PO (09:11)
--- NOTE | 2023-12-04 11:39 | PN.GI_ITS ---
Subjective Subjective Patient denies any current problems. She is tolerating a diet. The swelling in her legs is little bit better. Objective Data Objective Data Vital Signs: Vital Signs Temp Pulse Resp BP Pulse Ox O2 Del Method 97.8 F 65 18 104/50 L 96 Room Air 12/04/23 09:04 12/04/23 09:04 12/04/23 09:04 12/04/23 09:04 12/04/23 09:04 12/04/23 09:05 Oxygen Delivery Method Room Air Weight: 116 lb 15.989 oz Body Mass Index (BMI) 22.8 Intake & Output: Intake and Output for Last 24 Hours 12/02/23 12/03/23 12/04/23 23:59 23:59 23:59 Intake Total 750 / 750 750 / 850 100 / 100 Output Total 350 / 350 500 / 800 500 / 500 Balance 400 / 400 250 / 50 -400 / -400 Medical Nutrition Assessment Dietitian: Malnutrition Criteria Met Start: 12/01/23 11:42 Freq: Status: Active Protocol: Document 12/01/23 11:42 AG (Rec: 12/01/23 11:42 AG Desktop) Nutrition Malnutrition Evidence of Malnutrition Exists Yes Malnutrition (moderate): Chronic Evidenced By Suboptimal Energy Intake ( Moderate),Physical Changes ( Mild) Clinical Problem Chronic Disease or Condition Related Malnutrition Etiology moderate, chronic malnutrition related to inadequate energy intake w/ advanced age Signs/Symptoms as evidenced by estimated PO intake meeting <75% of estimated energy needs > 3 months, mild muscle wasting/ fat loss evident per physical exam in orbital, clavicle, and temporal areas. Status Active Problem Recommendation Dietitian Recommendations/Changes recommend advance diet as tolerated to regular; will adjust ensure to 120mL 4x/day w/ medpass for additional nutrition if consumed. Lab / Micro Data 12/01/23 07:25 12/01/23 07:25 Labs: Laboratory Results - last 24 hr 12/03/23 11:05: Ferritin 446 H Micro: Microbiology 11/30/23 23:18 Urine, Catheterized Urine Culture - Final Klebsiella pneumoniae Physical Exam Const alert and no apparent distress Neuro Sensorium / Orientation: awake and alert Psych affect normal Assessment & Plan Assessment/Plan (1) Cirrhosis: QUALIFIERS: Hepatic cirrhosis type: unspecified hepatic cirrhosis Ascites presence: with ascites Qualified Code(s): K74.60 - Unspecified cirrhosis of liver; R18.8 - Other ascites PLAN: None steatohepatitis with cirrhosis and a current meld of 14 and a child Ledesma class A. That carries a 15% 90-day post hospital mortality. She her labs are consistent with a cholestatic appetite is secondary to cirrhosis. She does have some mild fluid in her lower extremities but is only +1. I do not think she would benefit from a diagnostic paracentesis at this time. I do recommend that she go on lactulose 10 cc twice a day and titrate up to 3 bowel movements a day, Xifaxan 550 mg twice a day. Consider nadolol 10 mg p.o. twice daily for variceal prophylaxis further recommendation to follow. She will also need screening for hepatocellular carcinoma with alpha- fetoprotein.She is not a candidate for TIPS or transplant evaluation at this time. Charges/Coding Visit Charges Inpatient E&M: 71601 Subs Hosp L3
[2023-12-04] MEDS: rifAXIMin 550 MG Tablet PO ×2 (14:02→21:15)
[2023-12-04 15:07] VITALS: BP 118/50; PULSE 72; RESP 18; TEMP 36.7; O2SAT 96
[2023-12-04 15:32] LABS: AFP, Tumor Marker 3.1 ng/mL (0.0-8.7); Anti-Mitochondrial AB <20.0 Units (0.0-20.0); Anti-Smooth Muscle ABS 5 Units (0-19); HEPATITIS B SURFACE AG Negative (Negative); Hep C Antibodies Non Reactive (Non Reactive); Hepatitis A IgM Antibody Negative (Negative); Hepatitis B Core AB IgM Negative (Negative)
[2023-12-04] MEDS: Ibuprofen 400 MG Tablet 200 MG PO (17:31)
[2023-12-04] MEDS: Nitrofurantoin Macrocrystals 100 MG Capsule PO (17:31)
[2023-12-04 21:12] VITALS: BP 116/41; PULSE 67; RESP 16; TEMP 36.5; O2SAT 93
[2023-12-04] MEDS: Latanoprost 0.005% 1 Bottle 1 DRP LEFT EYE (21:25)
[2023-12-05] VITALS (8 sets, daily range): BP systolic 98–136; BP diastolic 41–74; PULSE 59–75; RESP 16–22; TEMP 36.4–36.8; O2SAT 94–96
[2023-12-05] MEDS: Levothyroxine 25 MCG TABLET PO (05:08)
[2023-12-05] MEDS: Ibuprofen 400 MG Tablet 200 MG PO (07:01)
--- NOTE | 2023-12-05 07:40 | PN.HOSP_ITS ---
Reason for Visit Reason for Visit: Complaining of left ankle and foot pain. Objective Data Objective Data Vital Signs: Vital Signs Temp Pulse Resp BP Pulse Ox O2 Del Method 36.6 C 74 16 102/61 95 Room Air 12/05/23 06:09 12/05/23 06:09 12/05/23 06:09 12/05/23 06:09 12/05/23 06:09 12/05/23 06:09 Oxygen Delivery Method Room Air Weight: 53.07 kg Body Mass Index (BMI) 22.8 Intake & Output: Intake and Output for Last 24 Hours 12/03/23 12/04/23 12/05/23 23:59 23:59 23:59 Intake Total 750 / 850 100 / 300 400 / 400 Output Total 500 / 800 500 / 600 200 / 200 Balance 250 / 50 -400 / -300 200 / 200 Medical Nutrition Assessment Dietitian: Malnutrition Criteria Met Start: 12/01/23 11:42 Freq: Status: Active Protocol: Document 12/01/23 11:42 AG (Rec: 12/01/23 11:42 AG Desktop) Nutrition Malnutrition Evidence of Malnutrition Exists Yes Malnutrition (moderate): Chronic Evidenced By Suboptimal Energy Intake ( Moderate),Physical Changes ( Mild) Clinical Problem Chronic Disease or Condition Related Malnutrition Etiology moderate, chronic malnutrition related to inadequate energy intake w/ advanced age Signs/Symptoms as evidenced by estimated PO intake meeting <75% of estimated energy needs > 3 months, mild muscle wasting/ fat loss evident per physical exam in orbital, clavicle, and temporal areas. Status Active Problem Recommendation Dietitian Recommendations/Changes recommend advance diet as tolerated to regular; will adjust ensure to 120mL 4x/day w/ medpass for additional nutrition if consumed. Lab / Micro Data 12/01/23 07:25 12/01/23 07:25 Labs: Laboratory Results - last 24 hr 12/03/23 11:05: Tumor Marker AFP 3.1, Anti-Mitochondrial Ab <20.0, Anti-Smooth Muscle Ab 5, Hepatitis A IgM Ab Negative, Hep Bs Antigen Negative, Hep B Core IgM Ab Negative, Hepatitis C Ab (EIA) Non Reactive, Hep C Ab Comment Comment Micro: Microbiology 11/30/23 23:18 Urine, Catheterized Urine Culture - Final Klebsiella pneumoniae Physical Exam Const alert Constitutional Narrative: tearful. Resp normal respiratory effort Extremity Extremity Narrative: TTP left ankle. no warmth nor erythema. Neuro Sensorium / Orientation: awake and alert Assessment & Plan Assessment/Plan (1) Accident due to mechanical fall without injury: QUALIFIERS: Encounter type: initial encounter Qualified Code(s): W19.XXXA - Unspecified fall, initial encounter (2) Legally blind: (3) Cirrhosis: QUALIFIERS: Ascites presence: with ascites Hepatic cirrhosis type: unspecified hepatic cirrhosis Qualified Code(s): K74.60 - Unspecified cirrhosis of liver; R18.8 - Other ascites (4) Acute cystitis without hematuria: PLAN: Plan Mechanical fall at home in the setting of chronic and progressively worsening generalized weakness with ambulatory dysfunction * Give low-dose ibuprofen as needed for pain or fever. PT/OT and case management consult and treat in the a.m. for further recommendations regarding ECF placement with help appreciated in advance. Acute Cystitis; * +klebsiella, sensitive to all but ampicillin. Change to nitrofurantoin. Mild hypokalemia * Resolved after replacement. * 3.4 mmol/L present on admission Left ankle pain * unclear etiology. exam relatively benign. acetaminophen and ibuprofen. Chronic conditions: * Patient legally blind with history of glaucoma and can no longer safely live independently complicating #1 * History of cirrhosis with hyperbilirubinemia of 3.9 mg/dL and elevated alkaline phosphatase of 135 present on admission compounding #1 & #2 - Checked CT scan of the abdomen pelvis to evaluate for possible mass versus microlithiasis; which shows only evidence of cirrhosis. Check ammonia level. Serialize CMP's to monitor response to treatment. Avoid Tylenol and other potentially hepatotoxic agents. Finally, we will consult Dr. Cornell of gastroenterology to see this patient on rounds in the a.m. for further recommendations with help appreciated in advance. * Essential hypertension - Resume home regimen plus give as needed IV hydralazine for systolic blood pressure greater than 160 mmHg. * Hyperlipidemia - Continue statin and check lipid profile this admission. * Hypothyroidism - Resume Synthroid as previous and check TSH this admission. * History of cholecystectomy * History of hysterectomy DVT prophylaxis - SCD's only at this time given patient's thrombocytopenia of 92 present on admission relatively contraindicating heparin and heparinoid's. Disposition: To assisted facility. Because pt is blind, this has mandated involvement of Department of Developmental Disability to clear patient to ECF, though the patient is perfectly mentally competent. Initially, pt was to be self-pay anticipating a short hospitalization, this screen has prolonged her hospitalization, so she will meet her 3 midnights. Charges/Coding Visit Charges Inpatient E&M: 39735 Subs Hosp L1
[2023-12-05] MEDS: Pyridoxine HCl 100 MG Tablet PO (08:49)
[2023-12-05] MEDS: Spironolactone 50 MG Tablet PO (08:49)
[2023-12-05] MEDS: Nitrofurantoin Macrocrystals 100 MG Capsule PO ×2 (08:49→16:35)
[2023-12-05] MEDS: Atorvastatin Calcium 40 MG Tablet PO (08:50)
[2023-12-05] MEDS: BRIMONIDINE 0.2% 5ML BOTTLE 1 DRP EACH EYE ×2 (08:50→20:51)
[2023-12-05] MEDS: Timolol 0.5% 5ML OPTH.BTL 1 DRP OPHTHALMIC ×2 (08:50→20:51)
[2023-12-05] MEDS: Bisacodyl 5 MG Tablet 10 MG PO (08:50)
[2023-12-05] MEDS: Ergocalciferol 1.25 MG (50, 000 UNIT) Capsule PO (08:51)
[2023-12-05] MEDS: rifAXIMin 550 MG Tablet PO ×2 (08:51→20:46)
[2023-12-05] MEDS: Ensure Plus High Protein 120 ML LIQUID PO ×3 (08:54→16:35)
[2023-12-05] MEDS: Acetaminophen 500 MG Tablet 1000 MG PO ×2 (10:56→20:46)
--- NOTE | 2023-12-05 20:23 | NURSING ---
Patient requested pain medication. When nurse arrived in room, patient was sleeping in chair. Patient not awakened.
[2023-12-05] MEDS: Latanoprost 0.005% 1 Bottle 1 DRP LEFT EYE (20:45)
[2023-12-05] MEDS: 0.9% Saline Lock 10 ML Syringe IV (21:05)
[2023-12-06] VITALS (7 sets, daily range): BP systolic 96–115; BP diastolic 43–61; PULSE 60–69; RESP 16–20; TEMP 36.4–37.1; O2SAT 93–94
[2023-12-06] MEDS: Ibuprofen 400 MG Tablet 200 MG PO ×2 (02:00→10:41)
[2023-12-06] MEDS: Levothyroxine 25 MCG TABLET PO (05:50)
[2023-12-06] MEDS: Nitrofurantoin Macrocrystals 100 MG Capsule PO (08:50)
[2023-12-06] MEDS: Timolol 0.5% 5ML OPTH.BTL 1 DRP OPHTHALMIC (08:50)
[2023-12-06] MEDS: Spironolactone 50 MG Tablet PO (08:51)
[2023-12-06] MEDS: Bisacodyl 5 MG Tablet 10 MG PO (08:51)
[2023-12-06] MEDS: rifAXIMin 550 MG Tablet PO (08:51)
[2023-12-06] MEDS: Atorvastatin Calcium 40 MG Tablet PO (08:52)
[2023-12-06] MEDS: BRIMONIDINE 0.2% 5ML BOTTLE 1 DRP EACH EYE (08:52)
[2023-12-06] MEDS: Pyridoxine HCl 100 MG Tablet PO (09:22)
[2023-12-06] MEDS: Ensure Plus High Protein 120 ML LIQUID PO ×2 (09:22→14:17)
--- NOTE | 2023-12-06 15:01 | DCINST_ITS ---
Discharge Instructions Diet Discharge Diet: No restrictions Activity Discharge Activity: No Restrictions Weight Bearing Status: Full weight bearing Follow Up Care Please Follow Up With: Robin Mandujano MD When: As needed Test Results: Test results from this visit will be discussed in further detail at your follow- up appointment, if applicable. Pending Tests Upon Discharge: None Discharge Plan Admission Admit Date/Time: 12/03/23 15:26 Primary Reason for Your Visit: Mechanical fall, UTI Attending Provider: Pola Parsons Primary Care Provider: Robin Mandujano Consulting Providers: Ramiro Hernandez; Naun Cornell; Brian Jo Instructions Additional Instructions / Restrictions: Please take the medications below as prescribed. Follow-up with your primary care doctor after your stay at rehab as needed. Discharge Orders/Prescriptions Prescriptions: New nitrofurantoin monohyd/m-cryst 100 mg Capsule 100 mg PO BIDCM 3 Days Qty: 6 0RF Xifaxan 550 mg Tablet 550 mg PO BID 30 Days Qty: 60 0RF lactulose 20 gram/30 mL Solution 10 g PO BID 30 Days Qty: 900 0RF Ensure Plus High Protein 0.08 gram-1.5 kcal/mL Liquid 120 ml PO 4X/DAY 30 Days Qty: 30 0RF Continued spironolactone [Aldactone] 50 mg tablet 50 mg PO DAILY Vitamin B-6 50 mg capsule 100 mg PO DAILY levothyroxine [Euthyrox] 25 mcg tablet 25 mcg PO DAILY atorvastatin 40 mg tablet 40 mg PO DAILY ergocalciferol (vitamin D2) 1,250 mcg (50,000 unit) capsule 1,250 mcg PO QWEEK bisacodyl [Dulcolax (bisacodyl)] 5 mg tablet,delayed release (DR/EC) 10 mg PO DAILY latanoprost 0.005 % drops See Rx Instructions .ROUTE QPM Rx Instructions: 1 drop left eye every evening; brimonidine-timolol 0.2-0.5 % drops 1 drp ophthalmic (eye) BID Rx Instructions: 1 drop both eyes into the eye(s); Referrals / Follow Up: Robin Mandujano MD [Primary Care Provider] - Disposition Disposition (needs filled in before D/C Order can be placed): [facility] Facility
--- NOTE | 2023-12-06 15:06 | DS.PCM_ITS ---
Providers Date of Admission: 12/03/23 Date of Discharge: 12/06/23 Primary Care Physician: Dr. Robin Mandujano MD Consultations 12/01/23 00:18 Consult: Gastroenterology Routine Consulting Provider: Naun Cornell Reason for Consult: Cirrhosis with hyperbilirubinemia EMERGENT Consult: No MD Notified: Yes Date Notified: 12/01/23 Time Notified: 05:53 Method of Notification: Text Reason For Visit: mechanical fall with uti Diagnosis Discharge Diagnosis (1) Accident due to mechanical fall without injury: Status: Acute Code(s): W19.XXXA - Unspecified fall, initial encounter Qualifiers: Encounter type: initial encounter Qualified Code(s): W19.XXXA - Unspecified fall, initial encounter (2) Legally blind: Status: Acute Code(s): H54.8 - Legal blindness, as defined in [place] (3) Cirrhosis: Status: Acute Code(s): K74.60 - Unspecified cirrhosis of liver Qualifiers: Ascites presence: with ascites Hepatic cirrhosis type: unspecified hepatic cirrhosis Qualified Code(s): K74.60 - Unspecified cirrhosis of liver; R18.8 - Other ascites (4) Acute cystitis without hematuria: Status: Acute Code(s): N30.00 - Acute cystitis without hematuria Medications at Discharge Home Medications atorvastatin 40 mg tablet 40 mg PO DAILY 11/30/23 bisacodyl 5 mg tablet,delayed release (Dulcolax (bisacodyl)) 10 mg PO DAILY 11/30/23 ergocalciferol (vitamin D2) 1,250 mcg (50,000 unit) capsule 1,250 mcg PO QWEEK 11/30/23 latanoprost 0.005 % eye drops See Rx Instructions .Route QPM 11/30/23 levothyroxine 25 mcg tablet (Euthyrox) 25 mcg PO DAILY 11/30/23 pyridoxine (vitamin B6) 50 mg capsule (Vitamin B-6) 100 mg PO DAILY 11/30/23 spironolactone 50 mg tablet (Aldactone) 50 mg PO DAILY 11/30/23 brimonidine 0.2 %-timolol 0.5 % eye drops 1 drp ophthalmic (eye) BID 12/02/23 food supplemt, lactose-reduced 0.08 gram-1.5 kcal/mL oral liquid (Ensure Plus High Protein) 120 ml PO 4X/DAY 30 days #30 mL 12/06/23 lactulose 20 gram/30 mL oral solution 10 g (15 mL) PO BID 30 days #900 mL 12/06/23 nitrofurantoin monohydrate/macrocrystals 100 mg capsule 100 mg PO BIDCM 3 days #6 caps 12/06/23 rifaximin 550 mg tablet (Xifaxan) 550 mg PO BID 30 days #60 tabs 12/06/23 Hospital Course Operations None Procedures None, EKG and - (CT brain without contrast, CT cervical spine without contrast, CT abdomen pelvis with IV contrast, chest x-ray) Summary of Care Provided Minutes Spent on Discharge: 35 Hospital Course: Patient is an 88-year-old female who presented to [facility] ED on 11/30/2023 after a fall at home. Medical issues addressed during hospital course as noted below. [facility]. 1. Mechanical fall at home in the setting of chronic and progressively worsening generalized weakness with ambulatory dysfunction ? PT/OT/CM followed. Recommendation was for SNF placement with possible need for long-term care. Discharge was delayed by need for evaluation from outside alliance party due to patient being legally blind. Discharged to SNF in stable condition. 2. Acute cystitis ? Urine culture positive for Klebsiella, sensitive to all but ampicillin. Will complete 5-day course of Macrobid on 12/09. 3. Mild hypokalemia, resolved ? Potassium 3.4 on admit, resolved with replacement. 4. Left ankle pain, improving ? Unclear etiology. Exam benign. [place] there is no need for x-rays while inpatient. As needed ibuprofen going forward. 5. History of cirrhosis with hyperbilirubinemia of 3.9 mg/dL and elevated alkaline phosphatase of 135 present on admission compounding #1 & #2 ? CT abdomen and pelvis on admit only showed cirrhosis, no masses or other findings noted. Ammonia level 53. Gastroenterology followed, recommendation was to start lactulose 10 mg twice daily, Xifaxan 550 mg twice daily and titrate to 2-3 soft bowel movements per day. Also recommended consideration of adding nadolol 10 mg twice daily for variceal protection but blood pressure was consistently borderline low, held on starting nadolol while here, can consider in the future. Chronic medical conditions: * Patient legally blind with history of glaucoma and can no longer safely live independently complicating #1 * Essential hypertension -continued home spironolactone. * Hyperlipidemia - Continued statin. * Hypothyroidism -TSH normal. Continued home Synthroid. * History of cholecystectomy * History of hysterectomy Total clinical time spent by myself addressing the patient's discharge needs: 35 minutes. Physical Exam Const alert, no apparent distress and average body habitus Constitutional Narrative: Elderly female, sitting in bedside chair, head down with eyes closed but o therwise in no distress, conversing normally. General Appearance: cooperative and comfortable HEENT normocephalic, head/scalp atraumatic and hearing grossly normal bilaterally Eyes Eyes Narrative: Legally blind. Neck full ROM, no lymphadenopathy and supple Lymph Lymphatic: no lymphadenopathy noted Chest inspection of chest normal Resp normal respiratory effort, normal air movement, no use of accessory muscles and clear to auscultation bilaterally Cardio regular rate, regular rhythm, no murmurs and peripheral pulses 2+ throughout GI normal to inspection, nondistended, normoactive bowel sounds, soft to palpation, non-tender and non-distended Back/Spine normal ROM Extremity normal to inspection, full ROM and no pedal edema Skin no rashes or lesions noted Neuro no focal motor deficits and no sensory deficits noted Speech: speech normal Psych mental status grossly normal Medical Records Data Medical Nutrition Assessment Dietitian: Malnutrition Criteria Met Start: 12/01/23 11:42 Freq: Status: Active Protocol: Document 12/01/23 11:42 AG (Rec: 12/01/23 11:42 AG Desktop) Nutrition Malnutrition Evidence of Malnutrition Exists Yes Malnutrition (moderate): Chronic Evidenced By Suboptimal Energy Intake ( Moderate),Physical Changes ( Mild) Clinical Problem Chronic Disease or Condition Related Malnutrition Etiology moderate, chronic malnutrition related to inadequate energy intake w/ advanced age Signs/Symptoms as evidenced by estimated PO intake meeting <75% of estimated energy needs > 3 months, mild muscle wasting/ fat loss evident per physical exam in orbital, clavicle, and temporal areas. Status Active Problem Recommendation Dietitian Recommendations/Changes recommend advance diet as tolerated to regular; will adjust ensure to 120mL 4x/day w/ medpass for additional nutrition if consumed. Weight / BMI Weight Weight: 53.07 kg Body Mass Index (BMI) 22.8 ABG / Lab / Microbiology Data 12/01/23 07:25 12/01/23 07:25 Microbiology: Microbiology 12/06/23 14:14 Nasal Secretion SARS-CoV-2 Antigen (Rapid) - Final 11/30/23 23:18 Urine, Catheterized Urine Culture - Final Klebsiella pneumoniae D/C Instructions Discharge Diet: No restrictions Weight Bearing Status: Full weight bearing Pending Tests Upon Discharge: None Please Follow Up With: Robin Mandujano MD When: As needed Meaningful Use Info Meaningful Use Diagnoses (Choose all that apply): None applicable Discharge Plan Admission Admit Date/Time: 12/03/23 15:26 Primary Reason for Your Visit: Mechanical fall, UTI Attending Provider: Pola Parsons Primary Care Provider: Robin Mandujano Consulting Providers: Ramiro Hernandez; Naun Cornell; Brian Jo Instructions Additional Instructions / Restrictions: Please take the medications below as prescribed. Follow-up with your primary care doctor after your stay at rehab as needed. Discharge Orders/Prescriptions Prescriptions: New nitrofurantoin monohyd/m-cryst 100 mg Capsule 100 mg PO BIDCM 3 Days Qty: 6 0RF Xifaxan 550 mg Tablet 550 mg PO BID 30 Days Qty: 60 0RF lactulose 20 gram/30 mL Solution 10 g PO BID 30 Days Qty: 900 0RF Ensure Plus High Protein 0.08 gram-1.5 kcal/mL Liquid 120 ml PO 4X/DAY 30 Days Qty: 30 0RF Continued spironolactone [Aldactone] 50 mg tablet 50 mg PO DAILY Vitamin B-6 50 mg capsule 100 mg PO DAILY levothyroxine [Euthyrox] 25 mcg tablet 25 mcg PO DAILY atorvastatin 40 mg tablet 40 mg PO DAILY ergocalciferol (vitamin D2) 1,250 mcg (50,000 unit) capsule 1,250 mcg PO QWEEK bisacodyl [Dulcolax (bisacodyl)] 5 mg tablet,delayed release (DR/EC) 10 mg PO DAILY latanoprost 0.005 % drops See Rx Instructions .ROUTE QPM Rx Instructions: 1 drop left eye every evening; brimonidine-timolol 0.2-0.5 % drops 1 drp ophthalmic (eye) BID Rx Instructions: 1 drop both eyes into the eye(s); Referrals / Follow Up: Robin Mandujano MD [Primary Care Provider] - Disposition Disposition (needs filled in before D/C Order can be placed): [facility] Facility Charges/Coding Visit Charges Inpatient E&M: 54164 Disch Hosp >30min
--- NOTE | 2023-12-06 15:06 | TREXTCAR_ITS ---
Diet Diet Order/Speech Therapy: 12/01/23 12:20 Diet: Regular - General Is pt able to select menu?: No Routine Orders/Code Status Code Status: Full Code Therapies Weight Bearing: Full weight bearing Physical Therapy: Eval and Treat Occupational Therapy: Eval and Treat Problem/Diagnosis (1) Accident due to mechanical fall without injury: Status: Acute Code(s): W19.XXXA - Unspecified fall, initial encounter (2) Legally blind: Status: Acute Code(s): H54.8 - Legal blindness, as defined in [place] (3) Cirrhosis: Status: Acute Code(s): K74.60 - Unspecified cirrhosis of liver (4) Acute cystitis without hematuria: Status: Acute Code(s): N30.00 - Acute cystitis without hematuria Plan Patient is an 88-year-old female who presented to [facility] ED on 11/30/2023 after a fall at home. Medical issues addressed during hospital course as noted below. Patient was stable for discharge to alf facility on 12/06/2023. 1. Mechanical fall at home in the setting of chronic and progressively worsening generalized weakness with ambulatory dysfunction ? PT/OT/CM followed. Recommendation was for SNF placement with possible need for long-term care. Discharge was delayed by need for evaluation from outside constitution party due to patient being legally blind. Discharged to SNF in stable condition. 2. Acute cystitis ? Urine culture positive for Klebsiella, sensitive to all but ampicillin. Will complete 5-day course of Macrobid on 12/09. 3. Mild hypokalemia, resolved ? Potassium 3.4 on admit, resolved with replacement. 4. Left ankle pain, improving ? Unclear etiology. Exam benign. [place] there is no need for x-rays while inpatient. As needed ibuprofen going forward. 5. History of cirrhosis with hyperbilirubinemia of 3.9 mg/dL and elevated alkaline phosphatase of 135 present on admission compounding #1 & #2 ? CT abdomen and pelvis on admit only showed cirrhosis, no masses or other findings noted. Ammonia level 53. Gastroenterology followed, recommendation was to start lactulose 10 mg twice daily, Xifaxan 550 mg twice daily and titrate to 2-3 soft bowel movements per day. Also recommended consideration of adding nadolol 10 mg twice daily for variceal protection but blood pressure was consistently borderline low, held on starting nadolol while here, can consider in the future. Chronic medical conditions: * Patient legally blind with history of glaucoma and can no longer safely live independently complicating #1 * Essential hypertension -continued home spironolactone. * Hyperlipidemia - Continued statin. * Hypothyroidism -TSH normal. Continued home Synthroid. * History of cholecystectomy * History of hysterectomy Total clinical time spent by myself addressing the patient's discharge needs: 35 minutes. Allergies/Procedures Done in Hospital Allergies No Known Allergies Allergy (Verified 11/30/23 20:27) Procedures: EKG and - (CT brain without contrast, CT cervical spine without cont rast, chest x-ray, CT abdomen pelvis with IV contrast) Type of Care/Length of Stay Estimated LOS: More Than 30 Days Type of Care Needed: Skilled Rehab Potential: Fair Prognosis: Fair Additional Orders/Day of Discharge Day of Discharge: 12/06/23 Dietary and Speech Recommendations Dietitian Recommendations/Changes: recommend advance diet as tolerated to regular; will adjust ensure to 120mL 4x/day w/ medpass for additional nutrition if consumed. Follow Up Care Please Follow Up With: Robin Mandujano MD When: As needed Discharge Plan Admission Admit Date/Time: 12/03/23 15:26 Primary Reason for Your Visit: Mechanical fall, UTI Attending Provider: Pola Parsons Primary Care Provider: Robin Mandujano Consulting Providers: Ramiro Hernandez; Naun Cornell; Brian Jo Instructions Additional Instructions / Restrictions: Please take the medications below as prescribed. Follow-up with your primary care doctor after your stay at rehab as needed. Discharge Orders/Prescriptions Prescriptions: New nitrofurantoin monohyd/m-cryst 100 mg Capsule 100 mg PO BIDCM 3 Days Qty: 6 0RF Xifaxan 550 mg Tablet 550 mg PO BID 30 Days Qty: 60 0RF lactulose 20 gram/30 mL Solution 10 g PO BID 30 Days Qty: 900 0RF Ensure Plus High Protein 0.08 gram-1.5 kcal/mL Liquid 120 ml PO 4X/DAY 30 Days Qty: 30 0RF Continued spironolactone [Aldactone] 50 mg tablet 50 mg PO DAILY Vitamin B-6 50 mg capsule 100 mg PO DAILY levothyroxine [Euthyrox] 25 mcg tablet 25 mcg PO DAILY atorvastatin 40 mg tablet 40 mg PO DAILY ergocalciferol (vitamin D2) 1,250 mcg (50,000 unit) capsule 1,250 mcg PO QWEEK bisacodyl [Dulcolax (bisacodyl)] 5 mg tablet,delayed release (DR/EC) 10 mg PO DAILY latanoprost 0.005 % drops See Rx Instructions .ROUTE QPM Rx Instructions: 1 drop left eye every evening; brimonidine-timolol 0.2-0.5 % drops 1 drp ophthalmic (eye) BID Rx Instructions: 1 drop both eyes into the eye(s); Referrals / Follow Up: Robin Mandujano MD [Primary Care Provider] - Disposition Disposition (needs filled in before D/C Order can be placed): Care Home Facility Charges/Coding Visit Charges Inpatient E&M: 38565 Disch Hosp >30min (1) Accident due to mechanical fall without injury Qualifiers: Encounter type: initial encounter Qualified Code(s): W19.XXXA - Unspecified fall, initial encounter (3) Cirrhosis Qualifiers: Hepatic cirrhosis type: unspecified hepatic cirrhosis Ascites presence: with ascites Qualified Code(s): K74.60 - Unspecified cirrhosis of liver; R18.8 - Other ascites
--- NOTE | 2023-12-06 15:18 | PHA.DC.MR.R ---
Pharmacy [place] Med Reconciliation Pharmacy Service has performed discharge medication reconciliation for this patient. The patient's discharge medication list was reviewed for discrepancies and discrepancies were resolved. Medications at Discharge Home Medications atorvastatin 40 mg tablet 40 mg PO DAILY 11/30/23 bisacodyl 5 mg tablet,delayed release (Dulcolax (bisacodyl)) 10 mg PO DAILY 11/30/23 ergocalciferol (vitamin D2) 1,250 mcg (50,000 unit) capsule 1,250 mcg PO QWEEK 11/30/23 latanoprost 0.005 % eye drops See Rx Instructions .Route QPM 11/30/23 levothyroxine 25 mcg tablet (Euthyrox) 25 mcg PO DAILY 11/30/23 pyridoxine (vitamin B6) 50 mg capsule (Vitamin B-6) 100 mg PO DAILY 11/30/23 spironolactone 50 mg tablet (Aldactone) 50 mg PO DAILY 11/30/23 brimonidine 0.2 %-timolol 0.5 % eye drops 1 drp ophthalmic (eye) BID 12/02/23 food supplemt, lactose-reduced 0.08 gram-1.5 kcal/mL oral liquid (Ensure Plus High Protein) 120 ml PO 4X/DAY 30 days #30 mL 12/06/23 lactulose 20 gram/30 mL oral solution 10 g (15 mL) PO BID 30 days #900 mL 12/06/23 nitrofurantoin monohydrate/macrocrystals 100 mg capsule 100 mg PO BIDCM 3 days #6 caps 12/06/23 rifaximin 550 mg tablet (Xifaxan) 550 mg PO BID 30 days #60 tabs 12/06/23
--- NOTE | 2023-12-06 15:36 | CASEMGMT ---
Discharge Planning Discharge orders, signed med list, covid results, and transport time sent to [facility] via [facility]. Physicians will transport patient by cot at 5p. Nursing, SW, and patients son, Elijah, updated. Daina Georges, Discharge Planning Asst.
== END 2023-12-06 17:20 | disposition skilled nursing facility (03) | DRG 690 ==
LOC: ED 23:06 → MS3 12-01 07:06
PROVIDERS: Internal Medicine Gastroenterology; Admitting Provider Internal Medicine; Emergency Provider Student in an Organized Health Care Education/Training Program; PCP Family Medicine; Visit Provider Hospitalist
DX: N30.00 Acute cystitis without hematuria (principal); E44.0 Moderate protein-calorie malnutrition; K76.6 Portal hypertension; R18.8 Other ascites; K74.60 Unspecified cirrhosis of liver; E03.9 Hypothyroidism, unspecified; E78.5 Hyperlipidemia, unspecified; E87.6 Hypokalemia; M25.572 Pain in left ankle and joints of left foot; R53.1 Weakness; H54.8 Legal blindness, as defined in USA; B96.1 Klebsiella pneumoniae [K. pneumoniae] as the cause of diseases classified elsewhere; Z68.22 Body mass index [BMI] 22.0-22.9, adult; Z90.49 Acquired absence of other specified parts of digestive tract; Z90.710 Acquired absence of both cervix and uterus; Z79.899 Other long term (current) drug therapy
CPT/HCPCS: 36415; 70450; 71045; 72125; 74177; 80048; 80053; 80061; 80074; 80076; 81001; 82105; 82140; 82728; 83516; 83735; 83880; 84100; 84134; 84443; 84484; 85025; 85610; 87077; 87086; 87088; 87186; 87426; 93005; 97116; 97162; 97166; 97530; 97535; 97802; 99285; J7050; P9612; Q9967; A4216

== ENCOUNTER 2023-12-16 13:33 | Inpatient (IN) | payer MEDICARE, OTHER, SELFPAY ==
[2023-12-16 13:35] VITALS: BP 129/50; PULSE 73; RESP 18; TEMP 36.6; O2SAT 97; BMI 29.5
[2023-12-16 14:20] LABS: Absolute Lymphocyte Count 1.08 X10^3/uL (0.83-4.51); Absolute Neutrophil Count 4.5 X10^3/uL (2.0-7.7); Basophil# 0.04 X10^3/uL; Basophil% 0.6 % (0-1); Eosinophil# 0.24 X10^3/uL; Eosinophils% 3.6 % (0-5); Hematocrit 37.3 % (37-47); Hemoglobin 11.4 g/dL (12.0-15.0); Lymphocyte # 1.08 X10^3/ul (0.83-4.51); Lymphocyte % 16.1 % (19-41); Mean Corp Hgb Conc 30.6 g/dL (32-36); Mean Corpuscular Hgb 33.5 pg (27.0-32.0); Mean Corpuscular Volume 109.7 fL (81-99); Monocyte# 0.83 X10^3/uL; Monocyte% 12.4 % (0-10); NRBC Flagged by Analyzer 0 % (0-5); Neutrophil # 4.51 X10^3/uL (2.7-7.7); POSITIVE MORPHOLOGY YES; Platelet Count 138 K/mm3 (150-450); RBC Distribution Width SD 68.2 fl (35.1-43.9); White Blood Count 6.7 K/mm3 (4.4-11.0)
[2023-12-16 14:32] LABS: Differential Indicated SCAN CRITERIA MET
[2023-12-16 14:37] LABS: AST(SGOT) 65 U/L (15-37); Alanine Aminotransfer ALT/SGPT 51 U/L (13-56); Alkaline Phosphatase 217 U/L (45-117); Anion Gap 3 (5-15); BUN 28 mg/dL (7-18); BUN/Creat Ratio 23.5 RATIO (10-20); Bilirubin, Direct 0.71 mg/dL (0.00-0.30); Calcium,Total 9.3 mg/dL (8.5-10.1); Chloride 107 mmol/L (98-107); Creatinine, Serum 1.19 mg/dL (0.55-1.02); EST Glomerular Filtration Rate 46 mL/min (>60); Est Glom Filt Rate - Afr Amer 55 mL/min (>60); Estimated Creatinine Clearance 29.33 ml/min; Globulin 3.6 g/dL (2.2-4.2); Glucose 120 mg/dL (74-106); Lipase 50 U/L (13-75); Potassium 4.6 mmol/L (3.5-5.1); Protein, Total 5.6 g/dL (6.4-8.2); Sodium Level 138 mmol/L (136-145); Troponin-I HS 20 pg/mL (3.0-54.0)
--- NOTE | 2023-12-16 14:47 | CT_ITS ---
STUDY: CT ABDOMEN AND PELVIS WITH CONTRAST REASON FOR EXAM: Female, 88 years old. abdominal distention RADIATION DOSAGE (If Supplied By Facility): CTDIvol = ( 21.70 ) mGy, DLP = ( 1216.80 ) mGycm TECHNIQUE: Transaxial images were obtained from the dome of the diaphragm to the symphysis pubis without oral contrast. IV 100mL Isovue-300 was administered. Sagittal and coronal images were reconstructed. Individualized dose optimization techniques were used for this CT. COMPARISON: 11/30/2023 CT abdomen and pelvis FINDINGS: Moderate right and small left layering effusion with basilar atelectasis. Coronary artery calcifications are present. There is a diffuse contour abnormality of the liver consistent with cirrhotic changes. Cholecystectomy clips are in place. Normal spleen. Normal pancreas. Normal bilateral adrenal glands. Normal right kidney. Normal left kidney. Normal visualized stomach. There is a paralytic ileus of the small intestine with mild gaseous distention. Prominent stool within the rectum and sigmoid colon is present present with no evidence of proximal obstruction, air-fluid levels or dilatation. The appendix is visualized and appears normal. There is diffuse atherosclerotic calcification of the abdominal aorta, without a demonstrated aneurysm. Normal inferior vena cava. Normal retroperitoneum. [id number] diffuse abdominal ascites is present present prominent within the upper abdomen. Recannulization of the umbilical artery consistent with underlying portal hypertension. Normal urinary bladder. Diffuse subcutaneous edema throughout the abdomen and pelvis is present. There are diffuse degenerative changes of the visualized lumbar spine. CT/Abdomen/Pelvis W IV Cont ONLY IMPRESSION: 1. Moderate to severe cirrhotic morphology with underlying portal hypertension and moderate diffuse abdominal ascites. 2. Prominent stool within the rectum and sigmoid concerning for underlying constipation with no evidence of proximal obstruction. Mild small bowel dilatation or air-fluid levels concerning for underlying ileus and less likely early underlying small bowel obstruction. 3. Moderate right and small layering left effusion with basilar atelectasis. Electronically Signed: Corey Bernstein DO at 15:37 EST ,
--- NOTE | 2023-12-16 14:47 | CT_ITS ---
STUDY: CT CERVICAL SPINE WITHOUT CONTRAST REASON FOR EXAM: Female, 88 years old. altered mental status RADIATION DOSAGE (If Supplied By Facility): CTDIvol = ( 13.26 ) mGy, DLP = ( 544.52 ) mGycm TECHNIQUE: High resolution transaxial imaging was performed without contrast material. Sagittal and coronal images were reconstructed. Individualized dose optimization techniques were used for this CT. COMPARISON: 11/30/2023 CT cervical spine FINDINGS: Normal craniovertebral junction. Normal anterior atlantoaxial articulation. Normal odontoid process. Normal cervical lordosis. Normal vertebral bodies and posterior osseous elements. C2-3: Bilateral facet arthropathy but no significant spinal canal narrowing or foraminal narrowing. C3-4: Bilateral facet arthropathy but no significant spinal canal narrowing or foraminal narrowing. C4-5: Bilateral facet arthropathy but no significant spinal canal narrowing or foraminal narrowing. C5-6: Bilateral facet arthropathy but no significant spinal canal narrowing or foraminal narrowing. C6-7: Bilateral facet arthropathy but no significant spinal canal narrowing or foraminal narrowing. C7-T1: Bilateral facet arthropathy but no significant spinal canal narrowing or foraminal narrowing. Normal visualized soft tissue structures. CT/Spine Cervical without Contras IMPRESSION: Multilevel facet arthropathy with no significant spinal canal narrowing or foraminal narrowing. No evidence of malalignment or acute fracture. Electronically Signed: Corey Bernstein DO at 15:31 EST ,
--- NOTE | 2023-12-16 14:47 | CT_ITS ---
STUDY: CT BRAIN WITHOUT CONTRAST REASON FOR EXAM: Female, 88 years old. head injury RADIATION DOSAGE (If Supplied By Facility): CTDIvol = ( 44.99 ) mGy, DLP = ( 1558.48 ) mGycm TECHNIQUE: Transaxial CT imaging of the brain was performed without administration of intravenous contrast material. Individualized dose optimization techniques were used for this CT. COMPARISON: 11/30/2023 CT head FINDINGS: Normal soft tissue structures. Normal calvarium. There is mild cerebral atrophy with widening of the extra-axial spaces and ventricular dilatation. Normal white matter tracts of the cerebral hemispheres. Normal basal ganglia and thalami. Normal brainstem. Normal cerebellum. There is no intracranial hemorrhage. There are no findings of an acute ischemic infarction. Normal visualized paranasal sinuses. CT/Brain/Head without Contrast IMPRESSION: Mild senescent changes with no evidence of acute intracranial bleed, mass or ischemia. Electronically Signed: Corey Bernstein DO at 15:28 EST ,
[2023-12-16 14:54] LABS: Anisocytosis 2+; Differential Comment SCANNED; Macrocytosis 1+; Microcytosis 1+
--- NOTE | 2023-12-16 15:27 | CHAPLAIN ---
Type of Pastoral Visit _x__ Initial Visit ___ Follow-up Visit ___ On-call Visit ___ General Patient Visit ___ Spiritual Assessment ___ Family Conference ___ Bereavement ___ Rapid Response ___ Code Blue ___ Other (describe below) Pastoral Care Referral From ___ Patient _x__ Family ___ Nurse ___ Physician ___ Telephone Plant Power Operator ___ Credit Officer ___ Other (describe below) Sacrament/Intervention ___ Active listening ___ Anointing ___ Holiness ___ Bereavement ___ Communion ___ Rowan exploration ___ ___ Life review _x__ Prayer ___ Reconciliation ___ Sacrament of Sick _x__ Supportive presence ___ Wedding ___ Other (describe below) Pastoral Comments during rounds in the ED this day, a family member of this patient and known to this training executive invited training executive for support; presence and prayer offered for patient; assurance of presence given
[2023-12-16 15:34] LABS: International Normalized Ratio 1.2; Prothrombin Time (Protime)PT. 14.8 SECONDS (11.7-14.9)
[2023-12-16 16:01] VITALS: BP 126/62; PULSE 67; RESP 16; O2SAT 97
[2023-12-16 16:02] LABS: Mucous, Urine 0 SEEN /hpf (<or=2+); Red Blood Cells-Urine 0 SEEN /hpf (0-5)
--- NOTE | 2023-12-16 16:07 | EDS_ITS ---
HPI History of Present Illness Chief Complaint: Confusion Narrative Narrative: 88-year-old female presenting with altered mental status. Patient has a history of B[place], hyperammonemia, UTI. Recently admitted for debility and is blind. She was discharged back to senior care where she apparently has not been eating or drinking. She is not getting her lactulose either. Patient unable to give any history. I did review her paperwork. Patient has no family with her on exam. Vital signs are stable. [facility] Medical History (Updated 12/16/23 @ 18:[address] Bibi Dong, DO) Anemia Cirrhosis Hyperbilirubinemia Legally blind Stage 3b chronic kidney disease (CKD) Thrombocytopenia Home Medications atorvastatin 40 mg tablet 40 mg PO DAILY CHOLESTEROL 11/30/23 [History Last Taken Unknown] bisacodyl 5 mg tablet,delayed release (Dulcolax (bisacodyl)) 10 mg PO DAILY CONSTIPATION 11/30/23 [History Last Taken Unknown] ergocalciferol (vitamin D2) 1,250 mcg (50,000 unit) capsule 1,250 mcg PO QWEEK SUPPLEMENT 11/30/23 [History Last Taken Unknown] latanoprost 0.005 % eye drops 1 drp ophthalmic (eye) QPM GLAUCOMA 11/30/23 [History Last Taken Unknown] levothyroxine 25 mcg tablet (Euthyrox) 25 mcg PO DAILY THYROID 11/30/23 [History Last Taken Unknown] pyridoxine (vitamin B6) 50 mg capsule (Vitamin B-6) 100 mg PO DAILY SUPPLEMENT 11/30/23 [History Last Taken Unknown] spironolactone 50 mg tablet (Aldactone) 50 mg PO DAILY BLOOD PRESSURE 11/30/23 [History Last Taken Unknown] brimonidine 0.2 %-timolol 0.5 % eye drops 1 drp ophthalmic (eye) BID GLAUCOMA 12/02/23 [History Last Taken Unknown] food supplemt, lactose-reduced 0.08 gram-1.5 kcal/mL oral liquid (Ensure Plus High Protein) 120 ml PO 4X/DAY SUPPLEMENT 30 days #30 mL 12/06/23 [Rx Last Taken Unknown] lactulose 20 gram/30 mL oral solution 10 g (15 mL) PO BID CONSTIPATION 30 days #900 mL 12/06/23 [Rx Last Taken Unknown] rifaximin 550 mg tablet (Xifaxan) 550 mg PO BID ANTIDIARRHEAL 30 days #60 tabs 12/06/23 [Rx Last Taken Unknown] prednisolone acetate 1 % eye drops,suspension 1 drp ophthalmic (eye) 4X/DAY SWELLING/REDNESS 12/16/23 [History Last Taken Unknown] Allergy/AdvReac Type Severity Reaction Status Date / Time No Known Allergies Allergy Verified 11/30/23 20:27 Surgical History H/O: hysterectomy History of cholecystectomy Social History (Updated 12/16/23 @ 17:[address] Bibi Dong, ) housing: other details: [facility] Smoking Status: Never smoker alcohol intake: never substance use type: does not use ROS ROS ED Review of Systems ROS Unobtainable: due to mental condition and due to mental status EXAM Physical Exam Const Vital Signs: 12/16/23 13:35 12/16/23 13:40 12/16/23 16:01 Temperature 97.8 F Temperature Source Temporal Pulse Rate 73 67 Respiratory Rate 18 16 Respiratory Effort Normal Non-Labored Respiratory Pattern Normal Blood Pressure 129/50 H 126/62 H Blood Pressure Mean 76 83 Pulse Ox 97 97 Oxygen Delivery Method Room Air Room Air 12/16/23 17:42 Temperature Temperature Source Pulse Rate 69 Respiratory Rate 17 Respiratory Effort Respiratory Pattern Blood Pressure 118/47 L Blood Pressure Mean 70 Pulse Ox 95 Oxygen Delivery Method General Appearance ED: NAD; Negative for pallor HEENT Reports dry mucous membranes Mouth ED: Yes dry mucous membranes Mouth: dry mucous membranes Eyes PERRL and EOMs intact bilaterally Resp normal respiratory effort and clear to auscultation bilaterally Auscultation: Negative for rales, rhonchi or wheezes Cardio regular rate and regular rhythm GI GI Narrative: Abdomen distended. Appears tender on examination. Patient grunts with examination. Neuro oriented x3 and CN's II-XII intact bilaterally Sensorium / Orientation: alert Motor Exam: strength 5/5 throughout Psych mental status grossly normal Skin no rashes or lesions noted General Skin Exam: Negative for jaundice or pallor MDM MDM MDM Narrative Medical decision making narrative: 88-year-old female presenting with altered mental status. She is unable to give any history. I did review the medical record and I have previous and see the patient for previous admission. Patient had an ammonia level which was elevated today as an outpatient at 96 but it is 79 here in the ED today. There is no history of trauma however the patient cannot give history so we will obtain a CT brain, cervical spine to rule out any trauma. CBC to assess white blood cell count, hemoglobin, platelets. CMP to assess liver function and renal function, electrolytes. Lipase to assess for pancreatitis. INR to assess for coagulopathy. EKG and high-sensitivity troponin assess for ischemia/dysr hythmia. Urinalysis to assess for UTI. Patient's abdomen is distended and apparently tender on examination so I will obtain a CT of the abdomen pelvis with IV contrast. CT brain and cervical spine negative. CBC shows no leukocytosis. Hemoglobin hematocrit are stable. Platelets low at 138. Creatinine 1.19. BUN 28. Electrolytes unremarkable. But total bilirubin 2.5, direct bilirubin 1.71 AST 6.5, alkaline phosphatase [address] abdomen pelvis with IV contrast which shows moderate to severe cirrhosis and portal hypertension. This also shows moderate ascites which the patient has had in the past. Will discuss the case with Dr. Cornell. Patient was given Rocephin and Flagyl to cover for SBP. NG tube was placed. KUB shows good placement. Patient will be getting lactulose through the NG. Dr. Cornell placed orders and I spoke with the hospitalist for admission. Impression: 1. Hepatic encephalopathy 2. Ascites 3. Abdominal pain 4. History of cirrhosis 5. Altered mental status Lab Data Labs: Laboratory Results - last 24 hr 12/16/23 12/16/23 13:22 15:55 WBC 6.7 RBC 3.40 L Hgb 11.4 L Hct 37.3 MCV 109.7 H MCH 33.5 H MCHC 30.6 L RDW Std Deviation 68.2 H RDW Coeff of Nati 17.0 H Plt Count 138 L MPV 10.0 Immature Gran % (Auto) 0.300 Neut % (Auto) 67.0 Lymph % (Auto) 16.1 L [place] % (Auto) 12.4 H Eos % (Auto) 3.6 Baso % (Auto) 0.6 Absolute Neuts (auto) 4.5 Absolute Lymphs (auto) 1.08 Nucleated RBC % 0 Differential Comment SCANNED Anisocytosis 2+ Microcytosis 1+ Macrocytosis 1+ PT 14.8 INR 1.2 Sodium 138 Potassium 4.6 Chloride 107 Carbon Dioxide 28.0 Anion Gap 3 L BUN 28 H Creatinine 1.19 H Estim Creat Clear Calc 29.33 Est GFR (MDRD) Af Amer 55 L Est GFR (MDRD) Non-Af 46 L BUN/Creatinine Ratio 23.5 H Glucose 120 H Calcium 9.3 Total Bilirubin 2.50 H Direct Bilirubin 0.71 H AST 65 H ALT 51 Alkaline Phosphatase 217 H Ammonia 79.0 H Troponin I High Sens 20 Total Protein 5.6 L Albumin 2.0 L Globulin 3.6 Lipase 50 Urine Color Yellow Urine Clarity Cloudy Urine pH 6.5 Ur Specific [place] 1.015 Urine Protein 30 H Urine Glucose (UA) Normal Urine Ketones 5 H Urine Occult Blood 10 H Urine Nitrite Negative Urine Bilirubin Negative Urine Urobilinogen 4 H Ur Leukocyte Esterase 100 H Urine RBC 0 SEEN Urine WBC 5-10 SEEN Ur Squamous Epith Cells 5-10 SEEN Urine Bacteria 1+ Urine Mucus 0 SEEN Urine Yeast 2+ Radiography Diagnostic Testing: Clinical Impression(s) from Imaging Studies Abdomen/Pelvis CT 12/16/23 14:47 IMPRESSION: 1. Moderate to severe cirrhotic morphology with underlying portal hypertension and moderate diffuse abdominal ascites. 2. Prominent stool within the rectum and sigmoid concerning for underlying constipation with no evidence of proximal obstruction. Mild small bowel dilatation or air-fluid levels concerning for underlying ileus and less likely early underlying small bowel obstruction. 3. Moderate right and small layering left effusion with basilar atelectasis. Electronically Signed: Corey Bernstein DO at 15:37 EST , Brain CT 12/16/23 14:47 IMPRESSION: Mild senescent changes with no evidence of acute intracranial bleed, mass or ischemia. Electronically Signed: Corey Bernstein DO at 15:28 EST , Cervical Spine CT 12/16/23 14:47 IMPRESSION: Multilevel facet arthropathy with no significant spinal canal narrowing or foraminal narrowing. No evidence of malalignment or acute fracture. Electronically Signed: Corey Bernstein DO at 15:31 EST , KUB X-Ray 12/16/23 16:45 IMPRESSION: Right basilar consolidation/effusion. 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 Next of kin: [place] law dictates a PRIORITY LIST for identifying legal decision-maker/legal next of kin in the following order (LNOK): 1st: The patient?s legal guardian, if any 2nd: The patient's spouse (if status is questionable, consult Risk Management) 3rd: The patient?s adult child(eddie) (majority, if multiple children) 4th: The patient?s parents 5th: The patient?s adult siblings (majority, if multiple children siblings)
[2023-12-16 16:22] LABS: Color, Urine Yellow (Yellow); Glucose, Dipstick Normal (Normal); Ketone-Dipstick 5 mg/dl (Negative); Leukocyte Esterase-Dipstick 100 /ul (Negative); Nitrite-Dipstick Negative (Negative); Occult Blood-Urine 10 /ul (Negative); Protein-Dipstick 30 mg/dl (Negative); Specific Gravity, Urine 1.015 (1.002-1.030); Urine Bilirubin Dipstick Negative (Negative); Urine Clarity Cloudy (Clear); Urine Urobilinogen 4 mg/dl (Normal); Urine pH 6.5 (5.0 - 8.0)
[2023-12-16 16:29] LABS: Squamous Epithelial Cells - UA 5-10 SEEN /hpf (5-10); Yeast-Urine 2+ /hpf (None Seen)
[2023-12-16 16:30] LABS: Bacteria 1+ /hpf (None Seen); White Blood Cells 5-10 SEEN /hpf (0-5)
--- NOTE | 2023-12-16 16:45 | RAD_ITS ---
STUDY: X-RAY - ABDOMEN/PELVIS REASON FOR EXAM: Female, 88 years old. ng tube -- KUB with both diaphragms for NG/OG Verification TECHNIQUE: Frontal view COMPARISON: None. FINDINGS: Right basilar consolidation/effusion. There is an unremarkable bowel gas pattern. There is no demonstrated free abdominal air. There is a nasogastric tube in the stomach. Surgical clips over the right upper quadrant. Normal soft tissue structures. Degenerative vertebral changes. RAD/Abdomen Single View (Portable) IMPRESSION: Right basilar consolidation/effusion. Electronically Signed: Drake Toussaint DO at 17:12 EST ,
[2023-12-16] MEDS: Lactulose 20 GM/30 ML UDC NG (17:30)
[2023-12-16] MEDS: Ceftriaxone 1 GM/50 ML BAG IV (17:30)
[2023-12-16 17:42] VITALS: BP 118/47; PULSE 69; RESP 17; O2SAT 95
--- OUTSIDE RECORDS SUMMARY | 2023-12-16 17:45 | XMS RPT_ITS | CCD ---
Author Name Unknown Address [address] [place] [address] Organization [facility] Care Team Providers Care Video Manager Name Role Phone EREN GARCIA Attending Unavailable Nigel Frye Primary Care Provider Nigel Frye Primary Care Provider Nigel Frye MD Primary Care Provid er Nigel Frye MD Primary Care Provid er Nigel Frye MD Primary Care Provider Nigel Frye MD Primary Care Provider [phone] Delonte Mandujano MD Primary Care Provider Nigel Frye MD Primary Care Provider LAURA CROWE Attending Unavailable NIGEL FRYE Primary Care Unavailable DELONTE MANDUJANO Attending Unavailable DELONTE MANDUJANO Primary Care Unavailable NIGEL FRYE Attending Unavailable NIGEL FRYE Primary Care Unavailable LUIS A KISER Referring Unavailable NIGEL FRYE Primary Care Unavailable NIGEL FRYE Primary Care Unavailable LUIS A IKSER Attending Unavailable Allergies Allergy Classification Reported Allergen(s) Allergy Type Date of Onset Reaction(s) Facility (6 sources) Sulfonamides (Antibiotic) Propensity to adverse reactions to drug 5 Rash [place], [place] (10 sources) Sulfasalazine Allergy to substance 5 Rash [facility] (10 sources) Sulfonamides (Antibiotic) Drug Intolerance 5 Rash, Swelling [facility] Medications Current Medications Medication Drug Class(es) Dates Sig (Normalized) Sig (Original) calcium carbonate 500 mg oral tablet (6 sources) take 1 tablet by once daily calcium carbonate (OSCAL) 500 MG [...] 157.5 cm Delonte Mandujano MD Work Phone: [facility] 06-30-2023 13:48-0400 Body mass index (BMI) [Ratio] 21.62 kg/m2 Delonte Mandujano MD Work Phone: [facility] 06-30-2023 13:48-0400 Body weight 53.62 kg Delonte Mandujano MD Work Phone: [facility] 06-30-2023 13:48-0400 Diastolic blood pressure 66 mm[Hg] Delonte Mandujano MD Work Phone: [facility] 06-30-2023 13:48-0400 Heart rate 75 /min Delonte Mandujano MD Work Phone: [facility] 06-30-2023 13:48-0400 SaO2% (BldA) [Mass fraction] 96 % Delonte Mandujano MD Work Phone: [facility] 06-30-2023 13:48-0400 Systolic blood pressure 121 mm[Hg] Delonte Mandujano MD Work Phone: [facility] 06-11-2023 09:19-0400 Body height 157.5 cm Laura Crowe NUTRITION AND DIETETICS INSTRUCTOR - AMERICAN BOARD CERTIFIED ORTHOTIST Work Phone: [facility] 06-11-2023 09:19-0400 Body mass index (BMI) [Ratio] 20.67 kg/m2 Laura Crowe NUTRITION AND DIETETICS INSTRUCTOR - AMERICAN BOARD CERTIFIED ORTHOTIST Work Phone: [facility] 06-11-2023 09:19-0400 Body weight 51.26 kg Laura Crowe NUTRITION AND DIETETICS INSTRUCTOR - AMERICAN BOARD CERTIFIED ORTHOTIST Work Phone: [facility] 06-11-2023 09:19-0400 Diastolic blood pressure 64 mm[Hg] Laura Crowe NUTRITION AND DIETETICS INSTRUCTOR - AMERICAN BOARD CERTIFIED ORTHOTIST Work Phone: [facility] 06-11-2023 09:19-0400 Heart rate 78 /min Laura Crowe NUTRITION AND DIETETICS INSTRUCTOR - AMERICAN BOARD CERTIFIED ORTHOTIST Work Phone: [facility] 06-11-2023 09:19-0400 SaO2% (BldA) [Mass fraction] 98 % Laura Crowe NUTRITION AND DIETETICS INSTRUCTOR - AMERICAN BOARD CERTIFIED ORTHOTIST Work Phone: [facility] 06-11-2023 09:19-0400 Systolic blood pressure 122 mm[Hg] Laura Crowe NUTRITION AND DIETETICS INSTRUCTOR - AMERICAN BOARD CERTIFIED ORTHOTIST Work Phone: [facility] 06-07-2023 16:53-0400 Body temperature 97.81 [degF] Luis A Kiser MD Work Phone: [facility] 06-07-2023 16:53-0400 Diastolic blood pressure 55 mm[Hg] Luis A Kiser MD Work Phone: [facility] 06-07-2023 16:53-0400 Heart rate 77 /min Luis A Kiser MD Work Phone: [facility] 06-07-2023 16:53-0400 Respiratory rate 18 /min Luis A Kiser MD Work Phone: [facility] 06-07-2023 16:53-0400 SaO2% (BldA) [Mass fraction] 97 % Luis A Kiser MD Work Phone: [facility] 06-07-2023 16:53-0400 Systolic blood pressure 140 mm[Hg] Luis A Kiser MD Work Phone: [facility] 06-16-2022 12:24-0400 Diastolic blood pressure 59 mm[Hg] Cesar Gellis DO Work Phone: [facility] 06-16-2022 12:24-0400 Heart rate 66 /min Cesar Gellis DO Work Phone: [facility] 06-16-2022 12:24-0400 Respiratory rate 16 /min Cesar Gellis DO Work Phone: [facility] 06-16-2022 12:24-0400 SaO2% (BldA) [Mass fraction] 98 % Cesar Gellis DO Work Phone: [facility] 06-16-2022 12:24-0400 Systolic blood pressure 120 mm[Hg] Cesar Gellis DO Work Phone: [facility] 06-16-2022 12:03-0400 Body temperature 97.39 [degF] Cesar Joneslis DO Work Phone: [facility] 11-16-2021 18:28-0500 Body height 154.9 cm Mark Saravia MD Work Phone: [facility] 11-16-2021 18:28-0500 Body mass index (BMI) [Ratio] 26.45 kg/m2 Mark Saravia MD Work Phone: [facility] 11-16-2021 18:28-0500 Body temperature 98.4 [degF] Mark Sarvaia MD Work Phone: [facility] 11-16-2021 18:28-0500 Body weight 63.5 kg Mark Saravia MD Work Phone: [facility] 11-16-2021 18:28-0500 Diastolic blood pressure 64 mm[Hg] Mark Saravia MD Work Phone: [facility] 11-16-2021 18:28-0500 Heart rate 80 /min Mark Saravia MD Work Phone: [facility] 11-16-2021 18:28-0500 Respiratory rate 20 /min Mark Saravia MD Work Phone: [facility] 11-16-2021 18:28-0500 SaO2% (BldA) [Mass fraction] 100 % Mark Saravia MD Work Phone: [facility] 11-16-2021 18:28-0500 Systolic blood pressure 149 mm[Hg] Mark Saravia MD Work Phone: [facility] Encounters Encounter Date Encounter Type Care Provider Facility Start: 11-18-2023 Refill Delonte Mandujano MD Work Phone: [facility] Start: 09-08-2023 Refill Delonte Mandujano MD Work Phone: [facility] Start: 06-30-2023 End: 06-30-2023 ambulatory [facility] Start: 06-30-2023 End: 06-30-2023 Encounter for general adult medical examination without abnormal findings [facility] Start: 06-30-2023 End: 06-30-2023 Office outpatient visit 25 minutes Delonte Mandujano MD Work Phone: [facility] Procedures Date Procedure Procedure Detail [...] 1996 panel - S tiana or Plasma [facility] Start: 03-26-2023 End: 03-26-2023 Thyrotropin [Units/volume] in Serum or Plasma Nigel Frye MD Work Phone: Start: 06-16-2022 ENDOSCOPY REPORT Phy sician Generic Start: 05-20-2022 Assay of ferritin [place] gilberto Jonesbirdie DO Work Phone: Start: 05-20-2022 Hepatic function panel Cesar Jonesbirdie DO Work Phone: Start: 05-20-2022 Iaad ia [...] procedure 07/10/2024 1:30 PM EDT Office [facility] [place] [id number] Delonte Mandujano MD [address] [facility] [address] [place] [address] [facility] Start: 06-29-2024 COVID-19 Vaccine (4 - Booster for Moderna series) COVID-19 Vaccine (4 - Booster for Moderna series) [facility] Immunizations Immunization Date Immunization Notes Care Provider [facility] 09-21-2022 influenza, high dose seasonal, preservative-free Delonte Mandujano MD Work Phone: [facility] 09-21-2022 influenza virus vacc ine, unspecified formulation Luis A Kiser MD Work Phone: [facility] 08-29-2021 Influenza, Seasonal, Quadrivalent, Adjuvanted Delonte Mandujano MD Work Phone: [facility] 08-18-2020 influenza, injectabl e, quadrivalent, preservative free Delonte Mandujano MD Work Phone: [facility] 09-15-2019 influenza, high dose seasonal, preservative-free Delonte Mandujano MD Work Phone: [facility] 08-19-2018 influenza, high dose seasonal, preservative-free Delonte Mandujano MD Work Phone: [facility] 08-05-2017 influenza, high dose seasonal, preservative-free Delonte Mandujano MD Work Phone: [facility] 10-02-2016 influenza, high dose seasonal, preservative-free Delonte Mandujano MD Work Phone: [facility] 10-03-2015 influenza, high dose seasonal, preservative-free Delonte Mandujano MD Work Phone: [facility] Payers Date Payer Category Payer Unknown [employer] [facility] [address] [facility] [id number] 2022-Present [address] [place] [address] Commercial [id number] 2022 Unknown [id number] 2015 Medicare MEDICARE MEDICAR E PART A AND B [id number] 2015-Present [phone] [place] [address] [id number] 2015 Medicare MEDICARE MEDICAR E PART A AND B xxxxxxxxxx 2015-Present [phone] [place] [address] xxxxxxxxxx [id number] 2014 Unknown [id number] 2014 Unknown [employer] xxxxxxxxx 2014-Present [address] xxxxxxxxx [id number] 2002 Medicare MEDICARE MEDICAR E PART A AND B [id number] 2002-Present [address] [place] [address] Medicare [id number] 2002 Medicare [id number] Social History Date Type Detail Facility Start: 03-11-2018 Tobacco smoking stat [facility] Never smoker [facility] Start: 03-11-2018 Tobacco use and exposure Never used [employer] [place] Start: 03-11-2018 End: 06-30-2023 Alcohol intake Current non-drinker of alcohol (finding) [facility] [place], [place] Start: 1935 [facility]igned At [facility] [place] Start: 03-11-2018 End: 06-29-2023 Alcohol intake No [employer] Start: 03-16-2023 End: 06-30-2023 Exposure to SARS-CoV-2 (event) Not sure [facility] Work Phone: Start: 11-12-2022 End: 06-29-2023 History of Social function [facility] Frequency of Alcohol Consumption Not on file [facility] (I/We) worried wheth er (my/our) food would run out before (I/we) got money to buy more. Never true [facility] In the past 12 month s, was there a time when you were not able to pay the mortgage or rent on time? No [facility] Medical Equipment Procedure Code Equipment Code Equipment Origin al Text Equipment Identifier Dates use to TEST BLOO D SUGAR once daily as directed [id number] Start: 10-10-2022 End: 06-11-2023 Clinical Notes 11-16-2021 to 12-14-2023 Telephone Encounter - Letty Mclaughlin - 11/18/2023 10:35 AM ESTTelephone Encounter - Letty Mclaughlin - 11/18/2023 10:35 AM ESTTelephone Encounter - Sav Pena LPN - 09/08/2023 10:19 AM EDT Note Date & Type Note Facility 12-14-2023 Note custodial visit c ompleted by provider. See progress note in associate media planner [facility] 12-09-2023 Note custodial visit c ompleted by provider. See progress note in associate media planner [facility] 11-18-2023 Telephone encounter Note Prescription Request: Last medication check: 06/11/23 Last physical exam: 06/30/23 Next scheduled appointment: 01/17/24 Last date of refill on this medication 09/08/23 [facility] 11-18-2023 Miscellaneous Notes Prescription Request: Last medication check: 06/11/23 Last physical exam: 06/30/23 Next scheduled appointment: 01/17/24 Last date of refill on this medication 09/08/23 documented in this encounter [facility] 09-08-2023 Telephone encounter Note Prescription Request: Last medication check: 06/11/23 Last physical exam: 06/30/23 Next scheduled appointment: 01/17/24 Last date of refill on this medication 07/09/23 #30 1 refill [facility] 09-08-2023 Miscellaneous Notes Prescription Request: Last medication check: 06/11/23 Last physical exam: 06/30/23 Next scheduled appointment: 01/17/24 Last date of refill on this medication 07/09/23 #30 1 refill documented in this encounter [facility] 06-30-2023 Evaluation + Plan note Associated Problem(s): Hyperlipidemia Controlled, continue atorvastatin 40 mg daily [facility] 06-30-2023 Miscellaneous Notes Associated Problem(s): Hyperlipidemia Controlled, [...] 25 mcg daily documented in this encounter [facility] 06-30-2023 Miscellaneous Notes Associated Problem(s): Hyperlipidemia Controlled, [...] Level of Service documented in this encounter [facility] 06-30-2023 Evaluation + Plan note Associated Problem(s): 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 [facility] 06-30-2023 Evaluation + Plan note Associated Problem(s): Acquired hypothyroidism Controlled, continue levothyroxine 25 mcg daily [facility] 06-30-2023 History of Presen t illness Narrative Patient verified by last name and date of . Images from the original note were not included. [facility] [address] [facility] [address] Visit type: Established Patient Reason for Visit: [...] Medication Reason ergocalciferol (Vitamin D-2) 1.25 MG (92704 UT) capsule Med list cleanup List of [...] 24 hours. ergocalciferol (Vitamin D-2) 1.25 MG (97166 UT) capsule Take by mouth 1 (one) [...] 06/30/2023 2:26 PM documented in this encounter [facility] 06-30-2023 History of Presen t illness Narrative Patient verified by last name and date of . Images from the original note were not included. [address] [id number] Visit type: Established Patient Reason for Visit: [...] up in about 6 months (around 12/31/2023). Subjective BRITTANI Waddell comes in today for her annual [...] Medication Reason ergocalciferol (Vitamin D-2) 1.25 MG (47295 UT) capsule Med list cleanup List of [...] 24 hours. ergocalciferol (Vitamin D-2) 1.25 MG (91084 UT) capsule Take by mouth 1 (one) [...] 06/30/2023 2:26 PM documented in this encounter [facility] 06-30-2023 Note Addended by: DELONTE MANDUJANO on: 07/05/2023 05:30 AM Modules accepted: Level of Service [facility] 06-14-2023 Telephone encounter Note Notified Kumar. [facility] 06-14-2023 Miscellaneous Notes Notified Kumar. Rx sent for Lasix which she can [...] ED did not work/help. Name of caller: Kumar Contact phone number: [phone] Relationship to Patient: patient Provider: Dr. Mandujano Practice: [facility] Chief Complaint/Reason for Call: Patient states [...] their call: No documented in this encounter [facility] 06-14-2023 Telephone encounter Note Rx sent for Lasix which she can take once daily as needed for swelling. [facility] 06-14-2023 Telephone encounter Note Patient states she lives alone and doesn't think she can get one of the compression stockings on by herself so she needs something else to help with the swelling. [facility] 06-14-2023 Telephone encounter Note I did not send a water pill in for her. I gave her a prescription for the compression stockings and encouraged her to keep her feet elevated when sitting down. At her visit she said the water pill they prescribed in the ED did not work/help. [facility] 06-14-2023 Telephone encounter Note Name of caller: Kumar Contact phone number: [phone] Relationship to Patient: patient Provider: Dr. Mandujano Practice: [facility] Chief Complaint/Reason for Call: Patient states she [...] business hours to return their call: No [facility] 06-11-2023 History of Presen t illness Narrative Images from the original note were not included. Patient Kumar Silva 87 y.o. female, presents today with Chief Complaint Patient presents with Establish Care ER Follow-up Pedal edema . HPI- Kumar Silva presents today to establish care and [...] as needed ergocalciferol (Vitamin D-2) 1.25 MG (34124 UT) capsule Take by mouth 1 (one) [...] 06/11/2023 9:54 AM documented in this encounter [facility] 06-07-2023 Emergency department Note Triage notes and assessment reviewed with REDDY Alvarenga; acuity assigned. Katie Gross RN 06/07/231705 [facility] 06-07-2023 Emergency department Note Triage notes and assessment reviewed with REDDY Alvarenga; acuity assigned. Katie Gross RN 06/07/231705 EMERGENCY DEPARTMENT ENCOUNTER Pt Name: Kumar Silva Birthdate 1935 Date of evaluation: 06/07/2023 CHIEF COMPLAINT No chief complaint on file. HISTORY OF PRESENT ILLNESS HPI Kumar Silva is a 87 y.o. female who [...] Culture. Procedure Abnormality Status --------- ------ Complete Urinalysis[[id number]] Abnormal Final result Please view results for these tests on the individual orders. Medications ordered: Medications aspirin chewable tablet 324 mg (324 mg Oral Given 06/07/231732) ED Course as of 06/07/231901Jun 07, 2023 1742 ECG 12 lead No arrythmia, no acute [...] PATIENT REFERRED TO: [place] [address] [place] [address] In 1 day Cesar Rothman DO [address] [facility] [phone] In 1 day I prescribed: New Prescriptions [...] is within reach documented in this encounter [facility] 06-07-2023 Emergency department Triage note Pt presents to the ED with leg pain and cramping that starts at knee and travels intermittently down to her foot. Pt was wheeled back to the unit by family. Pt family is at bedside and call light is within reach [facility] 06-07-2023 Physician Emergency department Note EMERGENCY DEPARTMENT ENCOUNTER Pt Name: Kumar Silva Birthdate 1935 Date of evaluation: 06/07/2023 CHIEF COMPLAINT No chief complaint on file. HISTORY OF PRESENT ILLNESS HPI Kumar Silva is a 87 y.o. female who [...] Culture. Procedure Abnormality Status --------- ------ Complete Urinalysis[[id number]] Abnormal Final result Please view results for [...] PM PATIENT REFERRED TO: Nigel Frye MD [address] [place] [phone] In 1 day Cesar Rothman DO [address] [facility] [phone] In 1 day I prescribed: New Prescriptions [...] (electronically signed) Luis A Kiser MD 06/07/231901 [facility] 06-16-2022 [facility] Discharg e instructions Glenys Sanders RN - [...] mild sore throat. You may use an [id number] chloraseptic spray, gargle with warm salt water, [...] in this encounter [facility] Work Phone: 11-16-2021 Hospital Discharg e Mark Mayberry J, MD - 11/16/2021 Tylenol with pain. Use your boot to make it easier to walk. The following attachments cannot be sent through Care Everywhere.Ankle Sprain (Albanian)Fall Prevention (Albanian)Head Injury: Closed: General Info (Albanian)documented in this encounter [facility] Work Phone: [facility] Work Phone: Evaluation note* Diagnosis Pedal edema- Primary Edema documented in this encounter [facility]* Diagnosis Encounter to establish care- Primary Dependent edema Edema Acquired hypothyroidism Unspecified hypothyroidism Glaucoma, unspecified glaucoma type, unspecified laterality Hyperlipidemia, unspecified hyperlipidemia type documented in this encounter [facility] note* Diagnosis Type 2 diabetes mellitus with diabetic neuropathy, unspecified (HCC)- Primary Hypertensive chronic kidney disease with stage 1 through stage 4 chronic kidney disease, or unspecified chronic kidney disease Hyperlipidemia, unspecified Hypothyroidism, unspecified documented in this encounter [facility]* Diagnosis Medicare annual wellness visit, subsequent- Primary 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, without long-term current use of insulin, unspecified laterality (HCC) Acquired hypothyroidism Unspecified hypothyroidism Hyperlipidemia, unspecified hyperlipidemia type documented in this encounter [facility]* Diagnosis Medicare annual wellness visit, subsequent- Primary 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 * Dependent Edema Discharge Instructions (Albanian) [facility] Purpose Family History No Family History Records FoundNo Family History Records FoundNo Family History Records FoundNo Family History Records Found Advance Directives No Advanced Directives Records FoundDocuments on File Type Date Recorded Patient Accordion Repairer Expl anation ACP-Advance Directive ACP-Power of Transmission Assembler Documents on File Type Date Recorded Patient Accordion Repairer Expl anation Advance Directives and Living Will Power of Transmission Assembler Latest Code Status on File Code Status Date Activated Date Inactivated Comments Full Code 06/16/2022 10:27 AM Additional Source Comments INFORMATION SOURCE (unrecogn ized section and content) DATE CREATED AUTHOR AUTHOR'S ORGANIZ ATION 07/21/2019 [facility] DATE CREATED AUTHOR AUTHOR'S ORGANIZ ATION 06/22/2022 [facility] DATE CREATED AUTHOR AUTHOR'S ORGANIZ ATION 12/15/2023 [facility] Care Teams (unrecognized sec tion and content) Video Manager Relationship Specialty Start Date End Date Nigel Frye MD [address] [place], [place] [phone] PCP - General 06/11/15 Video Manager Relationship Specialty Start Date End Date Nigel Frye MD [address] [place] [phone] PCP - General 06/11/15 Video Manager Relationship Specialty Start Date End Date Nigel Frye MD [address] [place] [phone] PCP - General 06/11/15 Video Manager Relationship Specialty Start Date End Date Nigel Frye MD [address] [place] [address] PCP - General 04/29/19 Video Manager Relationship Specialty Start Date End Date Nigel Frye MD [facility] [place] [address] PCP - General 04/29/19 Video Manager Relationship Specialty Start Date End Date Nigel Frye MD [address] [place] [address] PCP - General 04/29/19 Video Manager Relationship Specialty Start Date End Date Nigel Frye MD [facility] [place] [address] PCP - General 04/29/19 Video Manager Relationship Specialty Start Date End Date Delonte Mandujano MD [address] [place] [address] PCP - General Family Medicine 06/14/23 Video Manager Relationship Specialty Start Date End Date Delonte Mandujano MD [address] [place] [address] PCP - General Family Medicine 06/14/23 Video Manager Relationship Specialty Start Date End Date Nigel Frye MD [facility] [place] [phone] PCP - General 04/29/19 06/13/23 Delonte Mandujano MD [address] [place] [address] PCP - General Family Medicine 06/14/23 Video Manager Relationship Specialty Start Date End Date Delonte Mandujano MD [address] [place], [place] [address] [address] PCP - General Family Medicine 06/14/23 Video Manager Relationship Specialty Start Date End Date Delonte Mandujano MD [address] [place] [id number] PCP - General Family Medicine 06/14/23 Video Manager Relationship Specialty Start Date End Date Delonte Mandujano MD [address] [place] [address] PCP - General Family Medicine 06/14/23 Video Manager Relationship Specialty Start Date End Date Delonte Mandujano MD [address] [facility], [place] [address] PCP - General Family Medicine 06/14/23 Reason [...] BE BASED ON THE PRIMARY CLINICAL RECORDS. [employer] provides no warranty or guarantee of the accuracy or completeness of information in this document.
--- NOTE | 2023-12-16 17:48 | PCM.HP.STD ---
HPI - General General Date of Admission: 12/16/23 Date of Service: 12/16/23 Chief Complaint: Confusion HPI Narrative KUMAR CANALES, is a 88 F who presented from the [facility] due to altered mental status. The patient has a history of Bustos cirrhosis and hyperammonemia and was recently admitted here from 11/30/2023 through 12/06/2023. At that time she was admitted status post fall and had been progressively getting weaker. She was also found to have a UTI at that time and was treated with antibiotics. GI was consulted and recommended lactulose 10 mg twice daily, Xifaxan 550 mg twice daily and to titrate to 2-3 soft bowel movements per day with outpatient follow-up. She was discharged to skilled facility at that time from which she presents today. All my history is obtained through the emergency department. There is family at bedside but they are not knowledgeable on what has happened recently. They stated that they did see her on Wednesday and she was at her baseline so the confusion that she is experiencing now is new since Wednesday. Family also reports that she has been having some swallowing issues as of late and this is new but they cannot quantify when this started. Per ER documentation it was reported that she had not been eating or drinking or taking her medications at the facility. We are unclear how long this has been going on. Patient is not able to give any history during my exam. Vital signs on presentation showed temperature of 97.8, heart rate 73, blood pressure 129/50, respiratory rate 18 oxygen saturations are 97% on room air. CBC shows a normal white count with a chronic stable anemia and thrombocytopenia. She has no left shift but does have a monocytosis. Coags are unremarkable. Chemistry panel shows elevated BUN and serum creatinine however this appears to be close to her baseline as well. Her glucose was 120. Bilirubin was 2.50 with a direct bilirubin of 0.71. Her AST was mildly elevated 65 but her ALT was normal. Alk phos was 217. Her ammonia level was 79. Troponin was normal. Lipase was 50. UA is suggestive of infection being positive for leuk esterase white cells and bacteria. CT of the abdomen pelvis shows moderate to severe cirrhotic morphology with underlying portal hypertension and moderate diffuse abdominal ascites, prominent stool in the rectum and sigmoid colon concerning for constipation with no elevations of obstruction and mild small bowel dilation or air-fluid levels concerning for underlying ileus as well as a moderate right and small left pleural effusion. CT of the brain showed only senescent changes. CT of the cervical spine shows multilevel facet arthropathy with no significant canal narrowing or foraminal narrowing and no evidence of malalignment or acute fractures. KUB was done post NG placement and satisfactory placement was noted. In the emergency department she was given 1 dose of ceftriaxone, lactulose, metronidazole, started on an octreotide drip and placed on Protonix 40 mg IV twice daily. [facility] Medical History (Updated 12/16/23 @ 18:[address] 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) Thrombocytopenia Home Medications atorvastatin 40 mg tablet 40 mg PO DAILY CHOLESTEROL 11/30/23 [History Last Taken Unknown] bisacodyl 5 mg tablet,delayed release (Dulcolax (bisacodyl)) 10 mg PO DAILY CONSTIPATION 11/30/23 [History Last Taken Unknown] ergocalciferol (vitamin D2) 1,250 mcg (50,000 unit) capsule 1,250 mcg PO QWEEK SUPPLEMENT 11/30/23 [History Last Taken Unknown] latanoprost 0.005 % eye drops 1 drp ophthalmic (eye) QPM GLAUCOMA 11/30/23 [History Last Taken Unknown] levothyroxine 25 mcg tablet (Euthyrox) 25 mcg PO DAILY THYROID 11/30/23 [History Last Taken Unknown] pyridoxine (vitamin B6) 50 mg capsule (Vitamin B-6) 100 mg PO DAILY SUPPLEMENT 11/30/23 [History Last Taken Unknown] spironolactone 50 mg tablet (Aldactone) 50 mg PO DAILY BLOOD PRESSURE 11/30/23 [History Last Taken Unknown] brimonidine 0.2 %-timolol 0.5 % eye drops 1 drp ophthalmic (eye) BID GLAUCOMA 12/02/23 [History Last Taken Unknown] food supplemt, lactose-reduced 0.08 gram-1.5 kcal/mL oral liquid (Ensure Plus High Protein) 120 ml PO 4X/DAY SUPPLEMENT 30 days #30 mL 12/06/23 [Rx Last Taken Unknown] lactulose 20 gram/30 mL oral solution 10 g (15 mL) PO BID CONSTIPATION 30 days #900 mL 12/06/23 [Rx Last Taken Unknown] rifaximin 550 mg tablet (Xifaxan) 550 mg PO BID ANTIDIARRHEAL 30 days #60 tabs 12/06/23 [Rx Last Taken Unknown] prednisolone acetate 1 % eye drops,suspension 1 drp ophthalmic (eye) 4X/DAY SWELLING/REDNESS 12/16/23 [History Last Taken Unknown] Allergy/AdvReac Type Severity Reaction Status Date / Time No Known Allergies Allergy Verified 11/30/23 20:27 Family History unable to obtain unable to obtain Surgical History H/O: hysterectomy History of cholecystectomy Social History (Updated 12/16/23 @ 17:[address] Bibi Dong, ) housing: other details: [facility] Smoking Status: Never smoker alcohol intake: never substance use type: does not use ROS Review of Systems ROS Unobtainable: due to encephalopathy Vital Signs Vital Signs Vital Signs: 12/16/23 13:35 12/16/23 13:40 12/16/23 16:01 Temperature 97.8 F Temperature Source Temporal Pulse Rate 73 67 Respiratory Rate 18 16 Respiratory Effort Normal Non-Labored Respiratory Pattern Normal Blood Pressure 129/50 H 126/62 H Blood Pressure Mean 76 83 Pulse Ox 97 97 Oxygen Delivery Method Room Air Room Air 12/16/23 17:42 Temperature Temperature Source Pulse Rate 69 Respiratory Rate 17 Respiratory Effort Respiratory Pattern Blood Pressure 118/47 L Blood Pressure Mean 70 Pulse Ox 95 Oxygen Delivery Method Weight Weight: 68.6 kg Body Mass Index (BMI) 29.5 Physical Exam Const Constitutional Narrative: Elderly, white female, sitting up in bed, family at bedside, patient is extremely confused and oriented only to self and mumbles name when I ask refuses to answer any other questions, appears chronically ill and older than stated age General Appearance: cooperative HEENT normocephalic, head/scalp atraumatic and moist oral mucous membranes HEENT Narrative: Dentition is poor with multiple missing teeth, NG in place Eyes PERRL and conjunctivae normal Eyes Narrative: No scleral icterus Neck no lymphadenopathy and supple Neck Narrative: Trachea midline, no thyroid enlargement Resp normal respiratory effort, no retractions and no use of accessory muscles Resp Narrative: Increased thoracic kyphosis Auscultation: Negative for rales, rhonchi or wheezes Cardio regular rate, regular rhythm, S1 normal heart sound, S2 normal heart sound, no murmurs, no rub, no gallops and no clicks GI normal to inspection, nondistended, normoactive bowel sounds and soft to palpation GI Narrative: Patient's abdomen is distended her and she seems to have some diffuse tenderness however difficult to ascertain due to mental status, fluid wave present Extremity no clubbing, cyanosis or edema Extremity Narrative: Decreased lean muscle mass, 2+ pedal pulses Skin no wounds, skin turgor normal, no jaundice, no petechiae and no mottling Skin Narrative: Skin is pale Neuro Neuro Narrative: Patient's eyes are closed and will intermittently respond to some questions however speech is difficult to understand, no focal deficits noted as patient has moved limbs spontaneously Sensorium / Orientation: oriented to person Psych Psych Narrative: Unable to assess due to current mental status Results Lab / Micro Data Attestation: I reviewed the patient's lab results. 12/16/23 13:22 12/16/23 13:22 Labs: Laboratory Results - last 24 hr 12/16/23 13:22: WBC 6.7, RBC 3.40 L, Hgb 11.4 L, Hct 37.3, MCV 109.7 H, MCH 33.5 H, MCHC 30.6 L, RDW Std Deviation 68.2 H, RDW Coeff of Nati 17.0 H, Plt Count 138 L, MPV 10.0, Immature Gran % (Auto) 0.300, Neut % (Auto) 67.0, Lymph % (Auto) 16.1 L, [place] % (Auto) 12.4 H, Eos % (Auto) 3.6, Baso % (Auto) 0.6, Absolute Neuts (auto) 4.5, Absolute Lymphs (auto) 1.08, Nucleated RBC % 0, Differential Comment SCANNED, Anisocytosis 2+, Microcytosis 1+, Macrocytosis 1+, PT 14.8, INR 1.2, Sodium 138, Potassium 4.6, Chloride 107, Carbon Dioxide 28.0, Anion Gap 3 L, BUN 28 H, Creatinine 1.19 H, Estim Creat Clear Calc 29.33, Est GFR (MDRD) Af Amer 55 L, Est GFR (MDRD) Non-Af 46 L, BUN/Creatinine Ratio 23.5 H, Glucose 120 H, Calcium 9.3, Total Bilirubin 2.50 H, Direct Bilirubin 0.71 H, AST 65 H, ALT 51, Alkaline Phosphatase 217 H, Ammonia 79.0 H, Troponin I High Sens 20, Total Protein 5.6 L, Albumin 2.0 L, Globulin 3.6, Lipase 50 12/16/23 15:55: Urine Color Yellow, Urine Clarity Cloudy, Urine pH 6.5, Ur Specific [place] 1.015, Urine Protein 30 H, Urine Glucose (UA) Normal, Urine Ketones 5 H, Urine Occult Blood 10 H, Urine Nitrite Negative, Urine Bilirubin Negative, Urine Urobilinogen 4 H, Ur Leukocyte Esterase 100 H, Urine RBC 0 SEEN, Urine WBC 5-10 SEEN, Ur Squamous Epith Cells 5-10 SEEN, Urine Bacteria 1+, Urine Mucus 0 SEEN, Urine Yeast 2+ Micro: Microbiology 12/16/23 14:25 Mucosa - Nose SARS-CoV-2, Influenza & RSV (PCR) - Final RSV Imagaing Radiology Impression Abdomen/Pelvis CT 12/16/23 14:47 IMPRESSION: 1. Moderate to severe cirrhotic morphology with underlying portal hypertension and moderate diffuse abdominal ascites. 2. Prominent stool within the rectum and sigmoid concerning for underlying constipation with no evidence of proximal obstruction. Mild small bowel dilatation or air-fluid levels concerning for underlying ileus and less likely early underlying small bowel obstruction. 3. Moderate right and small layering left effusion with basilar atelectasis. Electronically Signed: Corey Bernstein DO at 15:37 EST , Brain CT 12/16/23 14:47 IMPRESSION: Mild senescent changes with no evidence of acute intracranial bleed, mass or ischemia. Electronically Signed: Corey Bernstein DO at 15:28 EST , Cervical Spine CT 12/16/23 14:47 IMPRESSION: Multilevel facet arthropathy with no significant spinal canal narrowing or foraminal narrowing. No evidence of malalignment or acute fracture. Electronically Signed: Corey Bernstein DO at 15:31 EST , KUB X-Ray 12/16/23 16:45 IMPRESSION: Right basilar consolidation/effusion. Electronically Signed: Drake Norbert, DO at 17:12 EST Reading Location ID and State: [facility] / [place] Tel [phone], Service support , Assessment & Plan Assessment/Plan (1) Suspected UTI: (2) Constipation: (3) Bilateral pleural effusion: (4) Ascites: (5) Hyperammonemia: (6) Toxic metabolic encephalopathy: (7) RSV (acute bronchiolitis due to respiratory syncytial virus): PLAN: Plan Acute toxic/metabolic encephalopathy secondary to hepatic encephalopathy -NG tube placed -Continue lactulose as ordered 40 g every 4 hours -Once able to take p.o. add rifaximin 550 mg p.o. twice daily -Goal is for 2-3 soft bowel movements daily -GI consultation for assistance with management -Hopefully patient becomes more alert and can assist with goals of care Dysphagia -Speech therapy consultation -Will be most beneficial after NG tube are moved Constipation -Lactulose as noted above -Goal is 2-3 soft bowel movements a day -If lactulose does not help may need rectal enema to stimulate evacuation Hyperammonemia -Chronic -Appears to be at baseline Ascites/bilateral pleural effusion -Will obtain paracentesis -If removed greater than 5 L treat with albumin -No thoracentesis at this time as it has all translocation from the abdomen and will recur if the ascites is not removed -May need to consider [place] drain depending on goals of care Suspected UTI -Continue ceftriaxone -Send urine culture as UA is suggestive of infection RSV infection -Respiratory viral panel was positive for RSV -Patient is on room air -Supportive care -This may also be contributing to her encephalopathy -Patient appears to be fairly asymptomatic with regards to this CKD stage IIIb -Suspect patient may have some hepatorenal syndrome -Monitor closely -Will give 1 L of IV fluids -Avoid nephrotoxins as able Cirrhosis -Secondary to BUSTOS -Appears fairly severe on CT -Treatment as above for hepatic encephalopathy -Octreotide drip -Protonix IV PPI twice daily -Continue ceftriaxone and Flagyl -Paracentesis pending to rule out SBP -Hold Aldactone for now -GI consult pending Chronic anemia -Hemoglobin appears to be stable -GI is consulted Debility -PT/OT/speech therapy consultation -Case management/social work consultation to facilitate discharge planning -Was residing at the [facility] Hyperlipidemia -Continue statin Hypothyroidism -Continue Synthroid via NG 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 -Consult dietitian -Recommend initiation of supplements once able to take p.o. diet DVT prophylaxis -Lovenox subcu daily CODE STATUS -DNR CCA with no intubation per previous documentation and paperwork from skilled facility Charges/Coding Visit Charges Inpatient E&M: 11899 Init Hosp L3
[2023-12-16 18:00] VITALS: BP 107/45; PULSE 68; RESP 14; O2SAT 96
--- OUTSIDE RECORDS SUMMARY | 2023-12-16 18:33 | XMS RPT_ITS | CCD ---
Author Name Unknown Address [address] [place] [address] Organization [facility] Care Team Providers Care Seismograph Supervisor Name Role Phone EREN GARCIA Attending Unavailable Nigel Frye Primary Care Provider Nigel Frye Primary Care Provider Nigel Frye MD Primary Care Provid er Nigel Frye MD Primary Care Provid er Nigel Frye MD Primary Care Provider [phone] Nigel Frye MD Primary Care Provider Delonte Mandujano MD Primary Care Provider Nigel Frye MD Primary Care Provider [phone] LAURA CROWE Attending Unavailable NIGEL FRYE Primary [...] to adverse reactions to drug 5 Rash [place], [place] (10 sources) Sulfasalazine Allergy to substance 5 Rash [facility] (10 sources) Sulfonamides (Antibiotic) Drug Intolerance 5 Rash, Swelling [facility] Medications Current Medications Medication Drug Class(es) Dates [...] 157.5 cm Delonte Mandujano MD Work Phone: [facility] 06-30-2023 13:48-0400 Body mass index (BMI) [Ratio] 21.62 kg/m2 Delonte Mandujano MD Work Phone: [facility] 06-30-2023 13:48-0400 Body weight 53.62 kg Delonte Mandujano MD Work Phone: [facility] 06-30-2023 13:48-0400 Diastolic blood pressure 66 mm[Hg] Delonte Mandujano MD Work Phone: [facility] 06-30-2023 13:48-0400 Heart rate 75 /min Delonte Mandujano MD Work Phone: [facility] 06-30-2023 13:48-0400 SaO2% (BldA) [Mass fraction] 96 % Delonte Mandujano MD Work Phone: [facility] 06-30-2023 13:48-0400 Systolic blood pressure 121 mm[Hg] Delonte Mandujano MD Work Phone: [facility] 06-11-2023 09:19-0400 Body height 157.5 cm Laura Crowe PROTECTION OFFICER - TRAY CHECKER Work Phone: [facility] 06-11-2023 09:19-0400 Body mass index (BMI) [Ratio] 20.67 kg/m2 Laura Crowe PROTECTION OFFICER - TRAY CHECKER Work Phone: [facility] 06-11-2023 09:19-0400 Body weight 51.26 kg Laura Crowe PROTECTION OFFICER - TRAY CHECKER Work Phone: [facility] 06-11-2023 09:19-0400 Diastolic blood pressure 64 mm[Hg] Laura Crowe PROTECTION OFFICER - TRAY CHECKER Work Phone: [facility] 06-11-2023 09:19-0400 Heart rate 78 /min Laura Crowe PROTECTION OFFICER - TRAY CHECKER Work Phone: [facility] 06-11-2023 09:19-0400 SaO2% (BldA) [Mass fraction] 98 % Laura Crowe PROTECTION OFFICER - TRAY CHECKER Work Phone: [facility] 06-11-2023 09:19-0400 Systolic blood pressure 122 mm[Hg] Laura Crowe PROTECTION OFFICER - TRAY CHECKER Work Phone: [facility] 06-07-2023 16:53-0400 Body temperature 97.81 [degF] Luis A Kiser MD Work Phone: [facility] 06-07-2023 16:53-0400 Diastolic blood pressure 55 mm[Hg] Luis A Kiser MD Work Phone: [facility] 06-07-2023 16:53-0400 Heart rate 77 /min Luis A Kiser MD Work Phone: [facility] 06-07-2023 16:53-0400 Respiratory rate 18 /min Luis A Kiser MD Work Phone: [facility] 06-07-2023 16:53-0400 SaO2% (BldA) [Mass fraction] 97 % Luis A Kiser MD Work Phone: [facility] 06-07-2023 16:53-0400 Systolic blood pressure 140 mm[Hg] Luis A Kiser MD Work Phone: [facility] 06-16-2022 12:24-0400 Diastolic blood pressure 59 mm[Hg] Cesar Gellis DO Work Phone: [facility] 06-16-2022 12:24-0400 Heart rate 66 /min Cesar Gellis DO Work Phone: [facility] 06-16-2022 12:24-0400 Respiratory rate 16 /min Cesar Gellis DO Work Phone: [facility] 06-16-2022 12:24-0400 SaO2% (BldA) [Mass fraction] 98 % Cesar Gellis DO Work Phone: [facility] 06-16-2022 12:24-0400 Systolic blood pressure 120 mm[Hg] Cesar Gellis DO Work Phone: [facility] 06-16-2022 12:03-0400 Body temperature 97.39 [degF] Cesar Joneslis DO Work Phone: [facility] 11-16-2021 18:28-0500 Body height 154.9 cm Mark Saravia MD Work Phone: [facility] 11-16-2021 18:28-0500 Body mass index (BMI) [Ratio] 26.45 kg/m2 Mark Saravia MD Work Phone: [facility] 11-16-2021 18:28-0500 Body temperature 98.4 [degF] Mark Saravia MD Work Phone: [facility] 11-16-2021 18:28-0500 Body weight 63.5 kg Mark Saravia MD Work Phone: [facility] 11-16-2021 18:28-0500 Diastolic blood pressure 64 mm[Hg] Mark Saravia MD Work Phone: [facility] 11-16-2021 18:28-0500 Heart rate 80 /min Mark Saravia MD Work Phone: [facility] 11-16-2021 18:28-0500 Respiratory rate 20 /min Mark Saravia MD Work Phone: [facility] 11-16-2021 18:28-0500 SaO2% (BldA) [Mass fraction] 100 % Mark Saravia MD Work Phone: [facility] 11-16-2021 18:28-0500 Systolic blood pressure 149 mm[Hg] Mark Saravia MD Work Phone: [facility] Encounters Encounter Date Encounter Type Care Provider Facility Start: 11-18-2023 Refill Delonte Mandujano MD Work Phone: [facility] Start: 09-08-2023 Refill Delonte Mandujano MD Work Phone: [facility] Start: 06-30-2023 End: 06-30-2023 ambulatory [facility] Start: 06-30-2023 End: 06-30-2023 Encounter for general adult medical examination without abnormal findings [facility] Start: 06-30-2023 End: 06-30-2023 Office outpatient visit 25 minutes Delonte Mandujano MD Work Phone: [facility] Procedures Date Procedure Procedure Detail Performing Clinician Start: 06-29-2023 Adult depression screening assessment Delonte Mandujano MD Work Phone: Start: 06-07-2023 Dup-scan xtr veins complete bilateral study Luis A Kiser MD Work Phone: Start: 06-07-2023 Urinalysis complete panel - Urine Luis A Kisre MD Work Phone: Start: 06-07-2023 Urnls dip [...] - S tiana or Plasma [facility] Start: 03-26-2023 End: 03-26-2023 Thyrotropin [...] procedure 07/10/2024 1:30 PM EDT Office [facility] [place] [id number] Delonte Mandujano MD [address] [facility] [address] [place] [address] [facility] Start: 06-29-2024 COVID-19 Vaccine (4 - Booster for Moderna series) COVID-19 Vaccine (4 - Booster for Moderna series) [facility] Immunizations Immunization Date Immunization Notes Care Provider [facility] 09-21-2022 influenza, high dose seasonal, preservative-free Delonte Mandujano MD Work Phone: [facility] 09-21-2022 influenza virus vacc ine, unspecified formulation Luis A Kiser MD Work Phone: [facility] 08-29-2021 Influenza, Seasonal, Quadrivalent, Adjuvanted Delonte Mandujano MD Work Phone: [facility] 08-18-2020 influenza, injectabl e, quadrivalent, preservative free Delonte Mandujano MD Work Phone: [facility] 09-15-2019 influenza, high dose seasonal, preservative-free Delonte Mandujano MD Work Phone: [facility] 08-19-2018 influenza, high dose seasonal, preservative-free Delonte Mandujano MD Work Phone: [facility] 08-05-2017 influenza, high dose seasonal, preservative-free Delonte Mandujano MD Work Phone: [facility] 10-02-2016 influenza, high dose seasonal, preservative-free Delonte Mandujano MD Work Phone: [facility] 10-03-2015 influenza, high dose seasonal, preservative-free Delonte Mandujano MD Work Phone: [facility] Payers Date Payer Category Payer Unknown [employer] [facility] [address] [facility] [id number] 2022-Present [address] [place] [address] Commercial [id number] 2022 Unknown [id number] 2015 Medicare MEDICARE MEDICAR E PART A AND B [id number] 2015-Present [phone] [place] [address] [id number] 2015 Medicare MEDICARE MEDICAR E PART A AND B xxxxxxxxxx 2015-Present [phone] [place] [address] xxxxxxxxxx [id number] 2014 Unknown [id number] 2014 Unknown [employer] xxxxxxxxx 2014-Present [address] xxxxxxxxx [id number] 2002 Medicare MEDICARE MEDICAR E PART A AND B [id number] 2002-Present [address] [place] [address] Medicare [id number] 2002 Medicare [id number] Social History Date Type Detail Facility Start: 03-11-2018 Tobacco smoking stat [facility] Never smoker [facility] Start: 03-11-2018 Tobacco use and exposure Never used [employer] DBS MD Start: 03-11-2018 End: 06-30-2023 Alcohol intake Current non-drinker of alcohol (finding) [facility] [place], [place] Start: 1935 Sex Assigned At Not on file [facility] [facility] Start: 03-11-2018 End: 06-29-2023 Alcohol intake No [employer] Start: 03-16-2023 End: 06-30-2023 Exposure to SARS-CoV-2 (event) Not sure [facility] Work Phone: Start: 11-12-2022 End: 06-29-2023 History of Social function [facility] Frequency of Alcohol Consumption Not on file [facility] (I/We) worried wheth er (my/our) food would run out before (I/we) got money to buy more. Never true [facility] In the past 12 month s, was there a time when you were not able to pay the mortgage or rent on time? No [facility] Medical Equipment Procedure Code Equipment Code Equipment Origin al Text Equipment Identifier Dates use to TEST BLOO D SUGAR once daily as directed [id number] Start: 10-10-2022 End: 06-11-2023 Clinical Notes 11-16-2021 to 12-14-2023 Telephone Encounter - Letty Mclaughlin - 11/18/2023 10:35 AM ESTTelephone Encounter - Letty Mclaughlin - 11/18/2023 10:35 AM ESTTelephone Encounter - Sav Pena LPN - 09/08/2023 10:19 AM EDT Note Date & Type Note Facility 12-14-2023 Note alf visit c ompleted by provider. See progress note in media/instructional designer [facility] 12-09-2023 Note alf visit c ompleted by provider. See progress note in media/instructional designer [facility] 11-18-2023 Telephone encounter Note Prescription Request: Last medication check: 06/11/23 Last physical exam: 06/30/23 Next scheduled appointment: 01/17/24 Last date of refill on this medication 09/08/23 [facility] 11-18-2023 Miscellaneous Notes Prescription Request: Last medication check: 06/11/23 Last physical exam: 06/30/23 Next scheduled appointment: 01/17/24 Last date of refill on this medication 09/08/23 documented in this encounter [facility] 09-08-2023 Telephone encounter Note Prescription Request: Last medication check: 06/11/23 Last physical exam: 06/30/23 Next scheduled appointment: 01/17/24 Last date of refill on this medication 07/09/23 #30 1 refill [facility] 09-08-2023 Miscellaneous Notes Prescription Request: Last medication check: 06/11/23 Last physical exam: 06/30/23 Next scheduled appointment: 01/17/24 Last date of refill on this medication 07/09/23 #30 1 refill documented in this encounter [facility] 06-30-2023 Evaluation + Plan note Associated Problem(s): Hyperlipidemia Controlled, continue atorvastatin 40 mg daily [facility] 06-30-2023 Miscellaneous Notes Associated Problem(s): Hyperlipidemia Controlled, [...] 25 mcg daily documented in this encounter [facility] 06-30-2023 Miscellaneous Notes Associated Problem(s): Hyperlipidemia Controlled, [...] Level of Service documented in this encounter [facility] 06-30-2023 Evaluation + Plan note Associated Problem(s): 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 [facility] 06-30-2023 Evaluation + Plan note Associated Problem(s): Acquired hypothyroidism Controlled, continue levothyroxine 25 mcg daily [facility] 06-30-2023 History of Presen t illness Narrative Patient verified by last name and date of . Images from the original note were not included. [facility] [address] [facility] [address] Visit type: Established Patient Reason for Visit: [...] Medication Reason ergocalciferol (Vitamin D-2) 1.25 MG (13566 UT) capsule Med list cleanup List of [...] 24 hours. ergocalciferol (Vitamin D-2) 1.25 MG (69549 UT) capsule Take by mouth 1 (one) [...] 06/30/2023 2:26 PM documented in this encounter [facility] 06-30-2023 History of Presen t illness Narrative Patient verified by last name and date of . Images from the original note were not included. [address] [id number] Visit type: Established Patient Reason for Visit: [...] Medication Reason ergocalciferol (Vitamin D-2) 1.25 MG (92846 UT) capsule Med list cleanup List of [...] 24 hours. ergocalciferol (Vitamin D-2) 1.25 MG (26526 UT) capsule Take by mouth 1 (one) [...] 06/30/2023 2:26 PM documented in this encounter [facility] 06-30-2023 Note Addended by: DELONTE MANDUJANO on: 07/05/2023 05:30 AM Modules accepted: Level of Service [facility] 06-14-2023 Telephone encounter Note Notified Kumar. [facility] 06-14-2023 Miscellaneous Notes Notified Kumar. Rx sent [...] Name of caller: Kumar Contact phone number: [phone] Relationship to Patient: patient Provider: Dr. Mandujano Practice: [facility] Chief Complaint/Reason for Call: Patient states she [...] their call: No documented in this encounter [facility] 06-14-2023 Telephone encounter Note Rx sent for Lasix which she can take once daily as needed for swelling. [facility] 06-14-2023 Telephone encounter Note Patient states she lives alone and doesn't think she can get one of the compression stockings on by herself so she needs something else to help with the swelling. [facility] 06-14-2023 Telephone encounter Note I did not send a water pill in for her. I gave her a prescription for the compression stockings and encouraged her to keep her feet elevated when sitting down. At her visit she said the water pill they prescribed in the ED did not work/help. [facility] 06-14-2023 Telephone encounter Note Name of caller: Kumar Contact phone number: [phone] Relationship to Patient: patient Provider: Dr. Mandujano Practice: [facility] Chief Complaint/Reason for Call: Patient states [...] business hours to return their call: No [facility] 06-11-2023 History of Presen t illness Narrative [...] as needed ergocalciferol (Vitamin D-2) 1.25 MG (90623 UT) capsule Take by mouth 1 (one) [...] 06/11/2023 9:54 AM documented in this encounter [facility] 06-07-2023 Emergency department Note Triage notes and assessment reviewed with REDDY Alvarenga; acuity assigned. Katie Gross RN 06/07/231705 [facility] 06-07-2023 Emergency department Note Triage notes and [...] Culture. Procedure Abnormality Status --------- ------ Complete Urinalysis[[id number]] Abnormal Final result Please view results for [...] PATIENT REFERRED TO: [place] [address] [place] [address] In 1 day Cesar Rothman DO [address] [facility] [phone] In 1 day I prescribed: New Prescriptions [...] is within reach documented in this encounter [facility] 06-07-2023 Emergency department Triage note Pt presents to the ED with leg pain and cramping that starts at knee and travels intermittently down to her foot. Pt was wheeled back to the unit by family. Pt family is at bedside and call light is within reach [facility] 06-07-2023 Physician Emergency department Note EMERGENCY DEPARTMENT [...] Culture. Procedure Abnormality Status --------- ------ Complete Urinalysis[[id number]] Abnormal Final result Please view results for [...] PM PATIENT REFERRED TO: Nigel Frye MD [address] [place] [phone] In 1 day Cesar Rothman DO [address] [facility] [phone] In 1 day I prescribed: New Prescriptions [...] (electronically signed) Luis A Kiser MD 06/07/231901 [facility] 06-16-2022 [facility] Discharg e instructions Glenys Sanders RN [...] mild sore throat. You may use an hsex-[id number] chloraseptic spray, gargle with warm salt water, [...] cannot be sent through Care Everywhere.Ankle Sprain (Gibraltarian)Fall Prevention (Gibraltarian)Head Injury: Closed: General Info (Gibraltarian)documented in this encounter [facility] Work Phone: documented [facility] encounter [facility] Work Phone: Evaluation note* Diagnosis Pedal edema- Primary Edema documented in this encounter [facility]* Diagnosis Encounter to establish care- Primary Dependent edema Edema Acquired hypothyroidism Unspecified hypothyroidism Glaucoma, unspecified glaucoma type, unspecified laterality Hyperlipidemia, unspecified hyperlipidemia type documented in this encounter [facility]* Diagnosis Type 2 diabetes mellitus with diabetic neuropathy, unspecified (HCC)- Primary Hypertensive chronic kidney disease with stage 1 through stage 4 chronic kidney disease, or unspecified chronic kidney disease Hyperlipidemia, unspecified Hypothyroidism, unspecified documented in this encounter [facility]* Diagnosis Medicare annual wellness visit, subsequent- Primary 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, without long-term current use of insulin, unspecified laterality (HCC) Acquired hypothyroidism Unspecified hypothyroidism Hyperlipidemia, unspecified hyperlipidemia type documented in this encounter [facility]* Diagnosis Medicare annual wellness visit, subsequent- Primary 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 * Dependent Edema Discharge Instructions ([place]raltarian) [facility] Family History No Family History Records FoundNo Family History Records FoundNo Family History Records FoundNo Family History Records Found Advance Directives No Advanced Directives Records FoundDocuments on File Type Date Recorded Patient Addiction Therapist Expl anation ACP-Advance Directive ACP-Power of Solar Sales Representative Documents on File Type Date Recorded Patient Addiction Therapist Expl anation Advance Directives and Living Will Power of Solar Sales Representative Latest Code Status on File Code Status Date Activated Date Inactivated Comments Full Code 06/16/2022 10:27 AM Additional Source Comments INFORMATION SOURCE (unrecogn ized section and content) DATE CREATED AUTHOR AUTHOR'S ORGANIZ ATION 07/21/2019 [facility] DATE CREATED AUTHOR AUTHOR'S ORGANIZ ATION 06/22/2022 [facility] DATE CREATED AUTHOR AUTHOR'S ORGANIZ ATION 12/15/2023 [facility] Care Teams (unrecognized sec tion and content) Seismograph Supervisor Relationship Specialty Start Date End Date Nigel Frye MD [address] [place], [place] [phone] PCP - General 06/11/15 Seismograph Supervisor Relationship Specialty Start Date End Date Nigel Frye MD [address] [place] [address] [id number] PCP - General 06/11/15 Seismograph Supervisor Relationship Specialty Start Date End Date Nigel Frye MD [address] [place] [phone] PCP - General 06/11/15 Seismograph Supervisor Relationship Specialty Start Date End Date Nigel Frye MD [address] [place] [address] PCP - General 04/29/19 Seismograph Supervisor Relationship Specialty Start Date End Date Nigel Frye MD [facility] [place] [address] PCP - General 04/29/19 Seismograph Supervisor Relationship Specialty Start Date End Date Nigel Frye MD [address] [place] [address] PCP - General 04/29/19 Seismograph Supervisor Relationship Specialty Start Date End Date Nigel Frye MD [facility] [place] [address] PCP - General 04/29/19 Seismograph Supervisor Relationship Specialty Start Date End Date Delonte Mandujano MD [address] [place] [address] PCP - General Family Medicine 06/14/23 Seismograph Supervisor Relationship Specialty Start Date End Date Delonte Mandujano MD [address] [place] [address] PCP - General Family Medicine 06/14/23 Seismograph Supervisor Relationship Specialty Start Date End Date Nigel Frye MD [facility] [place] [phone] PCP - General 04/29/19 06/13/23 Delonte Mandujano MD [address] [place] [address] PCP - General Family Medicine 06/14/23 Seismograph Supervisor Relationship Specialty Start Date End Date Delonte Mandujano MD [address] [place] [address] [address] PCP - General Family Medicine 06/14/23 Seismograph Supervisor Relationship Specialty Start Date End Date Delonte Mandujano MD [address] [place] [id number] PCP - General Family Medicine 06/14/23 Seismograph Supervisor Relationship Specialty Start Date End Date Delonte Mandujano MD [address] [place] [address] PCP - General Family Medicine 06/14/23 Seismograph Supervisor Relationship Specialty Start Date End Date Delonte Mandujano MD [address] [facility], [place] [address] PCP - General Family Medicine 06/14/23 Reason [...] BE BASED ON THE PRIMARY CLINICAL RECORDS. [employer] provides no warranty or guarantee of the accuracy or completeness of information in this document.
[2023-12-16 19:25] VITALS: BP 122/49; PULSE 75; RESP 17; TEMP 36.6; O2SAT 95; BMI 29.5
[2023-12-16] MEDS: Lactulose 20 GM/30 ML UDC 40 GM PO (23:00)
[2023-12-16] MEDS: Pantoprazole Sodium 40 MG in 0.9% Normal Saline (100mL MB+) 100 ML 330 MG IV (23:13)
[2023-12-16] MEDS: prednisoLONE eye drops (5 mL) 1 DROP OPTH.BTL 1 DRP OPHTHALMIC (23:13)
[2023-12-16] MEDS: BRIMONIDINE 0.2% 5ML BOTTLE 1 DRP EACH EYE (23:14)
[2023-12-16] MEDS: Timolol 0.5% 5ML OPTH.BTL 1 DRP EACH EYE (23:14)
[2023-12-16] MEDS: Latanoprost 0.005% 1 Bottle 1 DRP OPHTHALMIC (23:14)
[2023-12-16] MEDS: Octreotide 0.5 MG in Dextrose 5%-Water (250mL Bag) 250 ML 12.5 MG CONT INF (23:56)
[2023-12-16] MEDS: 0.9% Normal Saline (1000mL) 1,000 ML 75 ML IV (23:56)
[2023-12-17] VITALS (22 sets, daily range): BP systolic 81–128; BP diastolic 41–61; PULSE 65–83; RESP 16–18; TEMP 35.8–36.8; O2SAT 93–100; BMI 29.5
[2023-12-17] MEDS: Lactulose 20 GM/30 ML UDC 40 GM PO ×5 (03:46→21:52)
[2023-12-17] MEDS: metroNIDAZOLE 500 MG Tablet PO ×4 (06:55→18:15)
[2023-12-17 07:28] LABS: Absolute Lymphocyte Count 0.99 X10^3/uL (0.83-4.51); Absolute Neutrophil Count 5.4 X10^3/uL (2.0-7.7); Basophil# 0.04 X10^3/uL; Basophil% 0.5 % (0-1); Eosinophil# 0.24 X10^3/uL; Eosinophils% 3.2 % (0-5); Hematocrit 32.7 % (37-47); Hemoglobin 10.9 g/dL (12.0-15.0); Lymphocyte # 0.99 X10^3/ul (0.83-4.51); Lymphocyte % 13.3 % (19-41); Mean Corp Hgb Conc 33.3 g/dL (32-36); Mean Corpuscular Hgb 34.2 pg (27.0-32.0); Mean Corpuscular Volume 102.5 fL (81-99); Mean Platelet Vol. 9.8 fl (6.2-12.0); Monocyte# 0.72 X10^3/uL; Monocyte% 9.7 % (0-10); NRBC Flagged by Analyzer 0 % (0-5); Neutrophil # 5.41 X10^3/uL (2.7-7.7); Neutrophil % 72.9 % (47-70); Platelet Count 138 K/mm3 (150-450); RBC Distribution Width CV 16.9 % (11.6-14.6); RBC Distribution Width SD 63.9 fl (35.1-43.9); Red Blood Count 3.19 M/mm3 (4.2-5.4); White Blood Count 7.4 K/mm3 (4.4-11.0)
[2023-12-17 07:49] LABS: ALB/GLOB Ratio 0.6 RATIO (0.9-2.4); AST(SGOT) 54 U/L (15-37); Alanine Aminotransfer ALT/SGPT 46 U/L (13-56); Albumin, Serum 1.8 g/dL (3.2-5.0); Alkaline Phosphatase 170 U/L (45-117); Anion Gap 5 (5-15); BUN 26 mg/dL (7-18); BUN/Creat Ratio 25.7 RATIO (10-20); Calcium,Total 8.9 mg/dL (8.5-10.1); Chloride 109 mmol/L (98-107); Creatinine, Serum 1.01 mg/dL (0.55-1.02); EST Glomerular Filtration Rate 55 mL/min (>60); Est Glom Filt Rate - Afr Amer 67 mL/min (>60); Estimated Creatinine Clearance 34.55 ml/min; Globulin 3.2 g/dL (2.2-4.2); Glucose 118 mg/dL (74-106); Magnesium 2.2 mg/dL (1.6-2.6); Phosphorus 3.6 mg/dL (2.5-4.9); Potassium 4.5 mmol/L (3.5-5.1); Sodium Level 138 mmol/L (136-145)
[2023-12-17] MEDS: Pantoprazole Sodium 40 MG in 0.9% Normal Saline (100mL MB+) 100 ML 330 MG IV ×2 (09:38→21:53)
[2023-12-17] MEDS: BRIMONIDINE 0.2% 5ML BOTTLE 1 DRP EACH EYE ×2 (09:42→21:51)
[2023-12-17] MEDS: Timolol 0.5% 5ML OPTH.BTL 1 DRP EACH EYE ×2 (09:43→21:51)
[2023-12-17] MEDS: prednisoLONE eye drops (5 mL) 1 DROP OPTH.BTL 1 DRP OPHTHALMIC ×4 (09:43→21:52)
[2023-12-17] MEDS: Lactated Ringers 1,000 ML 15 ML IV (11:41)
--- NOTE | 2023-12-17 11:45 | CASEMGMT ---
Discharge Planning Updates sent to [facility] via [facility]. Daina Georges, Discharge Planning Asst.
--- NOTE | 2023-12-17 12:16 | OP.EGD_ITS ---
Patient Name: Nadira Silva Procedure Date: 12/17/2023 11:56 AM Date of : 1935 Age: 88 Procedure: Upper GI endoscopy Indications: Coffee-ground emesis Providers: Naun Cornell DO Referring MD: Lukas Monique Do Medicines: Monitored Anesthesia Care Patient Profile: This is an 88 year old female. Refer to note in patient chart for documentation of history and physical. Patient has symptoms of acute vomiting. Complications: No immediate complications. Procedure: Pre-Anesthesia Assessment: - Prior to the procedure, a History and Physical was performed, and patient medications and allergies were reviewed. The patient is competent. The risks and benefits of the procedure and the sedation options and risks were discussed with the patient. All questions were answered and informed consent was obtained. Patient identification and proposed procedure were verified by the physician in the pre-procedure area. Mental Status Examination: alert and oriented. Airway Examination: normal oropharyngeal airway and neck mobility. Respiratory Examination: clear to auscultation. CV Examination: normal. Prophylactic Antibiotics: The patient does not require prophylactic antibiotics. Prior Anticoagulants: The patient has taken no anticoagulant or antiplatelet agents. ASA Grade Assessment: III - A patient with severe systemic disease. After reviewing the risks and benefits, the patient was deemed in satisfactory condition to undergo the procedure. The anesthesia plan was to use monitored anesthesia care (MAC). Immediately prior to administration of medications, the patient was re-assessed for adequacy to receive sedatives. The heart rate, respiratory rate, oxygen saturations, blood pressure, adequacy of pulmonary ventilation, and response to care were monitored throughout the procedure. The physical status of the patient was re-assessed after the procedure. After obtaining informed consent, the endoscope was passed under direct vision. Throughout the procedure, the patient's blood pressure, pulse, and oxygen saturations were monitored continuously. The Endoscope was introduced through the mouth, and advanced to the second part of duodenum. The upper GI endoscopy was accomplished without difficulty. The patient tolerated the procedure well. Scope In: 12:06:42 PM Scope Out: 12:10:28 PM Total Procedure Duration Time 0 hours 3 minutes 46 seconds Findings: LA Grade A (one or more mucosal breaks less than 5 mm, not extending between tops of 2 mucosal folds) esophagitis with no bleeding was found 36 to 39 cm from the incisors. Severe portal hypertensive gastropathy was found in the entire examined stomach. The second portion of the duodenum was normal. Impression: - LA Grade A erosive esophagitis with no bleeding. - Portal hypertensive gastropathy. - Normal second portion of the duodenum. - No specimens collected. Recommendation: - [facility]. - NPO. - Continue present medications. Procedure Code(s): --- Professional --- 16063, Esophagogastroduodenoscopy, flexible, transoral; diagnostic, including collection of specimen(s) by brushing or washing, when performed (separate procedure) CPT copyright 2021 [employer]. All rights reserved. The codes documented in this report are preliminary and upon newspaper subscription solicitor review may be revised to meet current compliance requirements. Naun Cornell DO 12/17/2023 12:15:57 PM This report has been signed electronically. Number of Addenda: 0 Note Initiated On: 12/17/2023 11:56 AM
--- NOTE | 2023-12-17 12:16 | OP.CCLET_ITS ---
12/17/2023 Robin Mandujano Re : Upper GI endoscopy procedure for Nadira Silva Dear Nazia This procedure was performed on Sunday, December 17, 2023. My impressions and recommendations are as follows: Impressions : - LA Grade A erosive esophagitis with no bleeding. - Portal hypertensive gastropathy. - Normal second portion of the duodenum. - No specimens collected. Recommendations : - [facility]. - NPO. - Continue present medications. My findings are described in the full procedure note, which is enclosed. If I can be of further assistance, please feel free to contact me at . Sincerely, Naun Cornell, 12/17/2023 12:15:57 PM This report has been signed electronically.
[2023-12-17] MEDS: Ceftriaxone 1 GM/50 ML BAG IV (13:11)
[2023-12-17] MEDS: 0.9% Saline Lock 10 ML Syringe IV (13:11)
--- NOTE | 2023-12-17 13:46 | CASEMGMT ---
Patient is from [facility]. DOROTHEA spoke with patient's son Elijah and he confirmed the plan is for patient to return. Elijah also said patient would need transportation arranged. Plan: d/c back to [facility] under skilled level of care. Physicians will transport patient. Cathy HARPER
[2023-12-17] MEDS: Levothyroxine 25 MCG TABLET GT (13:50)
[2023-12-17] MEDS: Lidocaine 2% (20 ml mdv) 20 ML Vial (14:36)
--- NOTE | 2023-12-17 14:40 | FLU_PTH ---
PATHOLOGY RESULTS PATIENT: KUMAR CANALES LOC: [facility] U#:[id number] AGE/SX: 88/F ROOM: [facility] RE12/16/[address]: Dr. Duke Dee MD : 1935 BED: 1 DIS: 12/21/2023 SPEC #: [id number] RECD: 12/20/23 09:25 STATUS: COMFORT REAbigail #: [id number] FELIPE: 12/17/23 14:[address]: Duke Dee DEPT: CYTOLOGY RECD BY: Yanelis Arriola ENTERED: 12/20/23 09:25 SP TYPE: Fluid OTHR DR: Dr. Pola Parsons, DO Dr. Lukas Monique, DO Dr. Ramiro Alaniz, DO MD Dr. Anneliese Fernandez MD Dr. Kathryn Lee, DO Dr. Ernesto Manzo DO Kenia Barajas, PROPERTY MAINTENANCE TECHNICIAN-C Zoraida Haro PROPERTY MAINTENANCE TECHNICIAN-C Tissues: PARACENTESIS FLUID Procedures: Special Stain Group II Surgery Specimen Level IV Cytospin Fluid HEADER OPERATION: Ultrasound-guided paracentesis PRE-OP DIAGNOSIS: Ascites TISSUE SUBMITTED: Paracentesis fluid for cytology DIAGNOSIS CYTOLOGY Paracentesis fluid for cytology (cytospin and cell block): Negative for malignant cells. See comment. JOHNNY:denice 12/21/2023 COMMENT Clinical correlation and appropriate follow up are necessary. CYTOLOGY STUDY Slides are reviewed. CYTOLOGY GROSS Received is 80 ml of dark yellow cloudy fluid labeled with the patient's name and and designated per the requisition as paracentesis. Submitted for cytology preparation including cell block. / denice 12/20/2023 TC:5 CPT: 13098, 09349
--- NOTE | 2023-12-17 14:57 | PCM.OP.PRO ---
Procedure Report Date of Procedure: 12/17/23 Assessment & Plan Assessment/Plan (1) Ascites: QUALIFIERS: Ascites type: other type Qualified Code(s): R18.8 - Other ascites PLAN: PROCEDURE: Ultrasound guided paracentesis ORDERING PROVIDER: Dr. Bibi Dong INDICATION: Female, 88 years old. Ascites. PROVIDER: MARLON Arellano TECHNIQUE: The risks, benefits, and alternatives to the procedure were explained to the patient's son. The specific risks of bleeding, infection, and damage to bowel were detailed and accepted. Witnessed informed consent was obtained. The abdomen was ultrasonographically surveyed. A small pocket of fluid was identified in the right upper quadrant. The skin was prepped with chlorhexidine and sterile field established. 2% lidocaine was used for local anesthetic. Using ultrasound guidance, the peritoneal cavity was accessed with a 5-[place] paracentesis needle/catheter system. The trocar was removed. A total of 200 ml of cloudy alyson colored fluid was removed from the peritoneal cavity. 100 mL of this fluid was sent to the laboratory for analysis, as per requesting physician. There was a trace amount of fluid remaining; however, this was not able to be drained despite patient repositioning. The catheter was removed and a sterile dressing was applied. The procedure was well tolerated. IMPRESSION: Successful ultrasound-guided paracentesis with right upper quadrant access site. Procedures Radiology Radiology US Procedures: 47801 Paracentesis
[2023-12-17 15:27] LABS: Cytology, Body Fluid / CSF SEE PATHOLOGY REPORT
[2023-12-17 16:00] LABS: Body Fluid Mononuclear WBC # 0.132 10^3/uL; Body Fluid Mononuclear WBC % 90.4 %; Body Fluid Polynuclear WBC # 0.014 10^3/uL; Body Fluid Polynuclear WBC % 9.6 %; Body Fluid Total Cells Counted 0.182 10^3/ul; Red Cell Count/Body Fluid 0.004 10^6/ul; White Blood Count/Body Fluid 0.146 10^3/uL
[2023-12-17] MEDS: Octreotide 0.5 MG in Dextrose 5%-Water (250mL Bag) 250 ML 12.5 MG CONT INF (17:18)
[2023-12-17 18:36] LABS: Lymphocytes 35 %; Macrophages 39 %; Neutrophil (Segs) 1 %
[2023-12-17 18:37] LABS: Appearance/Body Fluid SL CLDY; Auto B Fluid Analyzer BKGD Ct COUNTS W/IN LIMITS (W/IN LIMITS); Body Fluid QC Type(s) BF2Q; Color/Body Fluid YELLOW; Mesothelial Cells 25 %; Source- Body Fluid ASCITES FLUID
--- NOTE | 2023-12-17 19:24 | PN.HOSP_ITS ---
Reason for Visit Reason for Visit: Diagnoses Disorder of urea cycle metabolism, unspecified (12/16/23) Other toxic encephalopathy (12/16/23) Acute bronchiolitis due to respiratory syncytial virus (12/16/23) Pleural effusion, not elsewhere classified (12/16/23) Constipation, unspecified (12/16/23) Other ascites (12/16/23) Other symptoms and signs involving the genitourinary system (12/16/23) Subjective Subjective Patient was seen and examined today, I talked with her family members who are present at the time my examination, patient is still confused, she underwent an EGD today which showed if esophagitis and portal gastropathy. Patient also underwent paracentesis today with 200 cc of peritoneal fluid drained. I explained to the patient's family that patient most probably has elevated ammonia which is causing confusion. I have elected to repeat the patient's ammonia level tomorrow morning. Objective Data Objective Data Vital Signs: Vital Signs Temp Pulse Resp BP Pulse Ox O2 Del Method 97.2 F L 77 16 120/51 L 94 Room Air 12/17/23 18:13 12/17/23 18:13 12/17/23 18:13 12/17/23 18:13 12/17/23 18:13 12/17/23 18:13 Oxygen Delivery Method Room Air Weight: 68.6 kg Body Mass Index (BMI) 29.5 Intake & Output: Intake and Output for Last 24 Hours 12/15/23 12/16/23 12/17/23 23:59 23:59 23:59 Intake Total 110 / 110 1594.54 / 1594.54 Output Total 450 / 450 Balance 110 / 110 1144.54 / 1144.54 Medical Nutrition Assessment Dietitian: Malnutrition Criteria Met Start: 12/17/23 07:52 Freq: Status: Active Protocol: Document 12/17/23 07:52 AG (Rec: 12/17/23 07:52 AG Other) Nutrition Malnutrition Evidence of Malnutrition Exists Yes Malnutrition (moderate): Chronic Evidenced By Suboptimal Energy Intake ( Moderate),Physical Changes ( Mild) Intake Problem Inadequate Oral Intake Etiology related to altered mental status, swallowing difficulty Signs/Symptoms as evidenced by current NPO status, reported no PO intake INTERIOR DESIGN COORDINATOR Status Active Problem Clinical Problem Chronic Disease or Condition Related Malnutrition Etiology moderate, chronic malnutrition related to inadequate energy intake w/ advanced age Signs/Symptoms as evidenced by reported PO intake meeting <75% of estimated energy needs > 3 months, mild muscle wasting/ fat loss per physical exam Status Active Problem Recommendation Dietitian Recommendations/Changes recommend regular, no added salt diet- texture/consistency per WINDOW SHADE CLOTH SEWER; ensure plus high protein 120mL 4x/day w/ medpass when appropriate for PO intake given evidence of chronic malnutrition Lab / Micro Data 12/17/23 06:50 12/17/23 06:50 Labs: Laboratory Results - last 24 hr 12/17/23 06:50: WBC 7.4, RBC 3.19 L, Hgb 10.9 L, Hct 32.7 L, MCV 102.5 H D, MCH 34.2 H, MCHC 33.3 D, RDW Std Deviation 63.9 H, RDW Coeff of Nati 16.9 H, Plt Count 138 L, MPV 9.8, Immature Gran % (Auto) 0.400, Neut % (Auto) 72.9 H, Lymph % (Auto) 13.3 L, [place] % (Auto) 9.7, Eos % (Auto) 3.2, Baso % (Auto) 0.5, Absolute Neuts (auto) 5.4, Absolute Lymphs (auto) 0.99, Nucleated RBC % 0, Sodium 138, Potassium 4.5, Chloride 109 H, Carbon Dioxide 24.0, Anion Gap 5, BUN 26 H, Creatinine 1.01, Estim Creat Clear Calc 34.55, Est GFR (MDRD) Af Amer 67, Est GFR (MDRD) Non-Af 55 L, BUN/Creatinine Ratio 25.7 H, Glucose 118 H, Calcium 8.9, Phosphorus 3.6, Magnesium 2.2, Total Bilirubin 2.90 H, AST 54 H, ALT 46, Alkaline Phosphatase 170 H, Total Protein 5.0 L, Albumin 1.8 L, Globulin 3.2, Albumin/Globulin Ratio 0.6 L 12/17/23 14:40: Fluid Source ASCITES FLUID, Fluid Color YELLOW, Fluid Appearance SL CLDY, Fluid WBC 0.146, Fluid RBC 0.004, Fluid Tot Cell Count 0.182 H, Fld Polynuclear WBCs # 0.014, Fld Polynuclear WBCs % 9.6, Fluid Mononuclear WBCs 0.132, Fld Mononuclear WBCs % 90.4, Fluid Neutrophils 1, Fluid Lymphocytes 35, Fluid Macrophages 39, Fld Mesothelial Cells 25, Fl Pathologist Comment May follow, Fluid Comment 2 SEE COMMENT Micro: Microbiology 12/17/23 14:40 Fluid - Paracentesis (Abd) Gram Stain - Final 12/16/23 14:25 Mucosa - Nose SARS-CoV-2, Influenza & RSV (PCR) - Final RSV Physical Exam Const Constitutional Narrative: Patient is lethargic and confused, she responds to painful stimuli and light touch General Appearance: well developed HEENT normocephalic, head/scalp atraumatic and moist oral mucous membranes Eyes PERRL, EOMs intact bilaterally and conjunctivae normal Neck supple, no JVD, thyroid normal and no carotid bruits General: trachea midline Resp normal respiratory effort, no retractions, no use of accessory muscles and clear to auscultation bilaterally Auscultation: Negative for rales, rhonchi or wheezes Cardio regular rate, regular rhythm, S1 normal heart sound, S2 normal heart sound, no murmurs, no rub and no gallops GI normal to inspection, nondistended, normoactive bowel sounds, soft to palpation, non-tender and non-distended Extremity no clubbing, cyanosis or edema Skin no rashes or lesions noted General Skin Exam: no breakdown Neuro CN's II-XII intact bilaterally, moves all extremities, no focal motor deficits and no sensory deficits noted Neuro Narrative: Patient is confused Psych Psych Narrative: Patient is lethargic, she is confused Assessment & Plan Assessment/Plan (1) Toxic metabolic encephalopathy: PLAN: Plan 1. 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
[2023-12-17] MEDS: Latanoprost 0.005% 1 Bottle 1 DRP OPHTHALMIC (21:52)
[2023-12-18] VITALS (16 sets, daily range): BP systolic 90–127; BP diastolic 43–65; PULSE 66–94; RESP 16–18; TEMP 35.9–36.9; O2SAT 92–99; BMI 26.0
[2023-12-18] MEDS: metroNIDAZOLE 500 MG Tablet PO ×5 (00:20→23:45)
[2023-12-18] MEDS: Lactulose 20 GM/30 ML UDC 40 GM PO ×6 (03:15→23:42)
[2023-12-18] MEDS: Levothyroxine 25 MCG TABLET GT (05:54)
[2023-12-18 08:09] LABS: Absolute Lymphocyte Count 0.99 X10^3/uL (0.83-4.51); Absolute Neutrophil Count 5.9 X10^3/uL (2.0-7.7); Basophil# 0.05 X10^3/uL; Basophil% 0.6 % (0-1); Eosinophil# 0.16 X10^3/uL; Hematocrit 32.5 % (37-47); Hemoglobin 10.8 g/dL (12.0-15.0); Lymphocyte # 0.99 X10^3/ul (0.83-4.51); Lymphocyte % 12.4 % (19-41); Mean Corp Hgb Conc 33.2 g/dL (32-36); Mean Corpuscular Hgb 34.6 pg (27.0-32.0); Mean Corpuscular Volume 104.2 fL (81-99); Mean Platelet Vol. 9.7 fl (6.2-12.0); Monocyte# 0.87 X10^3/uL; Monocyte% 10.9 % (0-10); NRBC Flagged by Analyzer 0 % (0-5); Neutrophil % 73.8 % (47-70); Platelet Count 139 K/mm3 (150-450); RBC Distribution Width CV 16.9 % (11.6-14.6); RBC Distribution Width SD 64.5 fl (35.1-43.9); Red Blood Count 3.12 M/mm3 (4.2-5.4)
[2023-12-18 08:26] LABS: ALB/GLOB Ratio 0.6 RATIO (0.9-2.4); AST(SGOT) 58 U/L (15-37); Alanine Aminotransfer ALT/SGPT 50 U/L (13-56); Alkaline Phosphatase 164 U/L (45-117); Anion Gap 6 (5-15); BUN 27 mg/dL (7-18); Calcium,Total 9.2 mg/dL (8.5-10.1); Chloride 112 mmol/L (98-107); EST Glomerular Filtration Rate 35 mL/min (>60); Est Glom Filt Rate - Afr Amer 42 mL/min (>60); Estimated Creatinine Clearance 21.89 ml/min; Globulin 3.6 g/dL (2.2-4.2); Glucose 135 mg/dL (74-106); Potassium 4.4 mmol/L (3.5-5.1); Protein, Total 5.6 g/dL (6.4-8.2); Sodium Level 143 mmol/L (136-145)
[2023-12-18] MEDS: Enoxaparin 30 MG/0.3 ML Syringe SC (10:11)
[2023-12-18] MEDS: BRIMONIDINE 0.2% 5ML BOTTLE 1 DRP EACH EYE ×2 (10:11→23:44)
[2023-12-18] MEDS: Pantoprazole Sodium 40 MG in 0.9% Normal Saline (100mL MB+) 100 ML 330 MG IV ×2 (10:12→23:43)
[2023-12-18] MEDS: Timolol 0.5% 5ML OPTH.BTL 1 DRP EACH EYE ×2 (10:12→23:44)
[2023-12-18] MEDS: prednisoLONE eye drops (5 mL) 1 DROP OPTH.BTL 1 DRP OPHTHALMIC ×4 (10:12→23:44)
[2023-12-18 11:12] LABS: Glucose, Body Fluid 125 mg/dL (40-70); LDH,Body Fluid 49 Units/L (Not Establ.); Protein, Body Fluid 0.5 g/dL (Not Establ.)
[2023-12-18] MEDS: levoFLOXacin IV 750 MG/150 ML BAG 100 MG IV (11:38)
--- NOTE | 2023-12-18 11:59 | PN.HOSP_ITS ---
Reason for Visit Reason for Visit: Diagnoses Disorder of urea cycle metabolism, unspecified (12/16/23) Other toxic encephalopathy (12/16/23) Acute bronchiolitis due to respiratory syncytial virus (12/16/23) Pleural effusion, not elsewhere classified (12/16/23) Constipation, unspecified (12/16/23) Other ascites (12/16/23) Other symptoms and signs involving the genitourinary system (12/16/23) Subjective Subjective Patient seen at bedside this morning. Sleeping on my arrival to the room. Patient stirred with verbal commands and with light touch, but she did not purposely respond to any commands or answer any questions for me. Satting well on room air, breathing comfortably, no acute distress. Objective Data Objective Data Vital Signs: Vital Signs Temp Pulse Resp BP Pulse Ox O2 Del Method 96.7 F L 70 16 90/43 L 96 Room Air 12/18/23 10:04 12/18/23 11:00 12/18/23 10:04 12/18/23 11:00 12/18/23 11:00 12/18/23 11:00 Oxygen Delivery Method Room Air Weight: 60.5 kg Body Mass Index (BMI) 26.0 Intake & Output: Intake and Output for Last 24 Hours 12/16/23 12/17/23 12/18/23 23:59 23:59 23:59 Intake Total 110 / 110 1624.54 / 1624.54 200 / 200 Output Total 450 / 550 650 / 650 Balance 110 / 110 1174.54 / 1074.54 -450 / -450 Medical Nutrition Assessment Dietitian: Malnutrition Criteria Met Start: 12/17/23 07:52 Freq: Status: Active Protocol: Document 12/17/23 07:52 AG (Rec: 12/17/23 07:52 AG Other) Nutrition Malnutrition Evidence of Malnutrition Exists Yes Malnutrition (moderate): Chronic Evidenced By Suboptimal Energy Intake ( Moderate),Physical Changes ( Mild) Intake Problem Inadequate Oral Intake Etiology related to altered mental status, swallowing difficulty Signs/Symptoms as evidenced by current NPO status, 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 Problem Clinical Problem Chronic Disease or Condition Related Malnutrition Etiology moderate, chronic malnutrition related to inadequate energy intake w/ advanced age Signs/Symptoms as evidenced by reported PO intake meeting <75% of estimated energy needs > 3 months, mild muscle wasting/ fat loss per physical exam Status Active Problem Recommendation Dietitian Recommendations/Changes recommend regular, no added salt diet- texture/consistency per RISK MANAGEMENT ANALYST; ensure plus high protein 120mL 4x/day w/ medpass when appropriate for PO intake given evidence of chronic malnutrition Lab / Micro Data 12/18/23 07:47 12/18/23 07:47 Labs: Laboratory Results - last 24 hr 12/17/23 14:40: Fluid Source ASCITES FLUID, Fluid Color YELLOW, Fluid Appearance SL CLDY, Fluid WBC 0.146, Fluid RBC 0.004, Fluid Tot Cell Count 0.182 H, Fld Polynuclear WBCs # 0.014, Fld Polynuclear WBCs % 9.6, Fluid Mononuclear WBCs 0.132, Fld Mononuclear WBCs % 90.4, Fluid Neutrophils 1, Fluid Lymphocytes 35, Fluid Macrophages 39, Fld Mesothelial Cells 25, Fl Pathologist Comment May follow, Fluid Glucose 125 H, Fluid Total Protein 0.5, Fluid LDH 49, Fluid Comment 2 SEE COMMENT 12/18/23 07:47: WBC 8.0, RBC 3.12 L, Hgb 10.8 L, Hct 32.5 L, MCV 104.2 H, MCH 34.6 H, MCHC 33.2, RDW Std Deviation 64.5 H, RDW Coeff of Nati 16.9 H, Plt Count 139 L, MPV 9.7, Immature Gran % (Auto) 0.300, Neut % (Auto) 73.8 H, Lymph % (Auto) 12.4 L, [place] % (Auto) 10.9 H, Eos % (Auto) 2.0, Baso % (Auto) 0.6, Absolute Neuts (auto) 5.9, Absolute Lymphs (auto) 0.99, Nucleated RBC % 0, Sodium 143, Potassium 4.4, Chloride 112 H, Carbon Dioxide 25.0, Anion Gap 6, BUN 27 H, Creatinine 1.50 H, Estim Creat Clear Calc 21.89, Est GFR (MDRD) Af Amer 42 L, Est GFR (MDRD) Non-Af 35 L, BUN/Creatinine Ratio 18.0, Glucose 135 H, Calcium 9.2, Total Bilirubin 3.40 H, AST 58 H, ALT 50, Alkaline Phosphatase 164 H, Ammonia 32.0, Total Protein 5.6 L, Albumin 2.0 L, Globulin 3.6, Albumin/Globulin Ratio 0.6 L Micro: Microbiology 01/19/24 14:40 Fluid - Paracentesis (Abd) Gram Stain - Final 12/16/23 14:25 Mucosa - Nose SARS-CoV-2, Influenza & RSV (PCR) - Final RSV Physical Exam Const no apparent distress and average body habitus Constitutional Narrative: Elderly female, chronically ill-appearing, laying comfortably in bed, stirring to verbal commands and light touch but no purposeful responses, no acute distre ss. General Appearance: comfortable HEENT normocephalic, head/scalp atraumatic, hearing grossly normal bilaterally and nasal mucous membranes and turbinates normal HEENT Narrative: NG tube in place. Neck no lymphadenopathy and supple Lymph Lymphatic: no lymphadenopathy noted Chest inspection of chest normal Resp normal respiratory effort, normal air movement, no use of accessory muscles and clear to auscultation bilaterally Cardio regular rate, regular rhythm, no murmurs and peripheral pulses 2+ throughout GI normal to inspection, nondistended, normoactive bowel sounds, soft to palpation, non-tender and non-distended GI Narrative: Mildly distended, mild tenderness to palpation diffusely. Soft on palpation. Back/Spine normal ROM Extremity normal to inspection and no pedal edema Skin no rashes or lesions noted Assessment & Plan Assessment/Plan (1) RSV (acute bronchiolitis due to respiratory syncytial virus): (2) Constipation: (3) Toxic metabolic encephalopathy: (4) Ascites: QUALIFIERS: Ascites type: other type Qualified Code(s): R18.8 - Other ascites (5) Hyperammonemia: (6) KIESHA (acute kidney injury): (7) Debility: (8) Dysphagia: PLAN: Plan Patient is an 88-year-old female who presented to [facility] ED on 12/16/2023 from intermediate facility for altered mental status. 1. Acute toxic/metabolic encephalopathy secondary to hepatic encephalopathy; history of decompensated cirrhosis with recurrent ascites, esophagitis and portal hypertensive gastropathy Presented from SNF with worsening encephalopathy. Suspect secondary to hepatic encephalopathy. Ammonia elevated from baseline. Unclear trigger of worsening encephalopathy. CT abdomen pelvis on admit showed moderate to severe cirrhotic morphology with underlying portal hypertension and moderate diffuse abdominal ascites, prominent stool within the rectum and sigmoid colon concerning for underlying ileus. S/p paracentesis on 12/17, labs consistent with transudative effusion, low concern for SBP based on cell count and differential, cultures pending. S/p EGD on 12/17 with grade a erosive esophagitis with no bleeding, portal hypertensive gastropathy. ? Gastroenterology following. NG tube in place. Good stool output on lactulose through NG, continue aggressive lactulose regimen. Ammonia level improving. Continue Flagyl per GI recs. Continue IV PPI twice daily for now. Continue octreotide drip. Once able to take p.o., add rifaximin twice daily. 2. Dysphagia ? Speech therapy consulted. Continue NG tube for now. N.p.o. status. 3. Constipation, improving ? CT abdomen pelvis on admit with significant constipation as noted above. Continue aggressive lactulose regimen. Monitor bowel movements. 4. RSV infection ? RSV positive on admission. Stable on room air during admission. Supportive care. 5. Enterococcus UTI ? UA infectious on admit. Urine culture with 80K-100K Enterococcus faecium. Switched from IV ceftriaxone to IV Levaquin on 12/18, plan to complete 5-day course of antibiotics, stop date 12/20. 6. 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 Developed KIESHA in 12/18 with creatinine 1.50, baseline creatinine 0.8-1.1. Seems most likely prerenal secondary to poor p.o. intake and GI losses in setting of aggressive lactulose regimen as noted above. However, also have concern for a degree of hepatorenal syndrome. Urine sodium ordered. Trend daily BMP. Can consider IV albumin for volume resuscitation as needed. 7. Chronic anemia and thrombocytopenia ? Hemoglobin 11.4, platelets 138 on admission. Baseline hemoglobin 10-11, baseline platelets 90-140. Stable, trend daily CBC. 8. Debility ? Presented from [facility] ([facility]). PT/OT/case management consulted. Likely back to SNF on discharge. 9. Moderate malnutrition ? Dietitian consulted. Currently n.p.o. as noted above. Recommend initiation of supplements once able to take p.o. diet. Chronic medical conditions: ? Hyperlipidemia: Continue home statin. ? Hypothyroidism: Continue home Synthroid. ? 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 DVT prophylaxis: Heparin subcu CODE STATUS: DNR CCA, DNI Expected disposition: Back to [facility], [facility] Total clinical time spent by myself addressing the patient's medical issues, reviewing all the data, and collaborating with patient's care team: 35 minutes. Charges/Coding Visit Charges Inpatient E&M: 22849 Subs Hosp L2
[2023-12-18] MEDS: Octreotide 0.5 MG in Dextrose 5%-Water (250mL Bag) 250 ML 12.5 MG CONT INF (13:52)
[2023-12-18 15:45] LABS: Urine Sodium 11 mmol/L (Not Establ.)
[2023-12-18] MEDS: Heparin Injection (Vial) 5,000 UNIT/ML VIAL 5000 UNIT SC (23:43)
[2023-12-18] MEDS: Latanoprost 0.005% 1 Bottle 1 DRP OPHTHALMIC (23:43)
[2023-12-18] MEDS: Acetaminophen 650 MG/20 ML UDC NG (23:45)
[2023-12-19 02:45] VITALS: BMI 25.1
[2023-12-19 03:20] VITALS: BP 112/53; PULSE 75; RESP 16; TEMP 36.6; O2SAT 94
[2023-12-19] MEDS: Lactulose 20 GM/30 ML UDC 40 GM PO ×6 (03:29→22:15)
[2023-12-19] MEDS: Levothyroxine 25 MCG TABLET GT (06:36)
[2023-12-19] MEDS: metroNIDAZOLE 500 MG Tablet PO ×3 (06:36→18:00)
[2023-12-19] MEDS: Nystatin Powder 15gm Bottle 1 APPLIC TOPICAL ×3 (06:37→22:10)
[2023-12-19 08:42] LABS: Anion Gap 3 (5-15); BUN 27 mg/dL (7-18); BUN/Creat Ratio 16.9 RATIO (10-20); Calcium,Total 9.1 mg/dL (8.5-10.1); Chloride 122 mmol/L (98-107); EST Glomerular Filtration Rate 33 mL/min (>60); Est Glom Filt Rate - Afr Amer 39 mL/min (>60); Estimated Creatinine Clearance 20.17 ml/min; Glucose 152 mg/dL (74-106); Potassium 3.6 mmol/L (3.5-5.1); Sodium Level 151 mmol/L (136-145)
[2023-12-19 09:00] VITALS: BP 117/60; PULSE 70; RESP 18; TEMP 36.6; O2SAT 94
[2023-12-19 09:47] VITALS: PULSE 70; RESP 18
[2023-12-19] MEDS: Octreotide 0.5 MG in Dextrose 5%-Water (250mL Bag) 250 ML 12.5 MG CONT INF (09:57)
[2023-12-19] MEDS: Pantoprazole Sodium 40 MG in 0.9% Normal Saline (100mL MB+) 100 ML 330 MG IV ×2 (10:00→23:51)
[2023-12-19] MEDS: Menthol/Lanolin/Calamine/Znox 113 GM Tube 1 APPLIC TOPICAL ×4 (10:05→22:10)
[2023-12-19] MEDS: BRIMONIDINE 0.2% 5ML BOTTLE 1 DRP EACH EYE ×2 (10:06→22:10)
[2023-12-19] MEDS: prednisoLONE eye drops (5 mL) 1 DROP OPTH.BTL 1 DRP OPHTHALMIC ×4 (10:08→22:09)
[2023-12-19] MEDS: Timolol 0.5% 5ML OPTH.BTL 1 DRP EACH EYE ×2 (10:09→22:10)
[2023-12-19] MEDS: Heparin Injection (Vial) 5,000 UNIT/ML VIAL 5000 UNIT SC ×2 (11:00→22:11)
--- NOTE | 2023-12-19 11:24 | PN.HOSP_ITS ---
Reason for Visit Reason for Visit: Diagnoses Disorder of urea cycle metabolism, unspecified (12/16/23) Other toxic encephalopathy (12/16/23) Acute bronchiolitis due to respiratory syncytial virus (12/16/23) Pleural effusion, not elsewhere classified (12/16/23) Constipation, unspecified (12/16/23) Acute kidney failure, unspecified (12/16/23) Dysphagia, unspecified (12/16/23) Other ascites (12/16/23) Other symptoms and signs involving the genitourinary system (12/16/23) Other malaise (12/16/23) Subjective Subjective Patient seen at bedside this morning. Appears slightly more alert this morning than yesterday. She was able to squeeze my hand on command and when asked if she had any pain, she shook her head no. Was not able to verbally respond to any questions. Was laying comfortably in bed in no acute distress. Objective Data Objective Data Vital Signs: Vital Signs Temp Pulse Resp BP Pulse Ox O2 Del Method 98 F 70 18 117/60 94 Room Air 12/19/23 09:00 12/19/23 09:47 12/19/23 09:47 12/19/23 09:00 12/19/23 09:00 12/19/23 09:47 Oxygen Delivery Method Room Air Weight: 58.3 kg Body Mass Index (BMI) 25.1 Intake & Output: Intake and Output for Last 24 Hours 12/17/23 12/18/23 12/19/23 23:59 23:59 23:59 Intake Total 1624.54 / 1624.54 771 / 771 391 / 391 Output Total 450 / 550 800 / 950 300 / 300 Balance 1174.54 / 1074.54 -29 / -179 91 / 91 Medical Nutrition Assessment Dietitian: Malnutrition Criteria Met Start: 12/17/23 07:52 Freq: Status: Active Protocol: Document 12/17/23 07:52 AG (Rec: 12/17/23 07:52 AG Other) Nutrition Malnutrition Evidence of Malnutrition Exists Yes Malnutrition (moderate): Chronic Evidenced By Suboptimal Energy Intake ( Moderate),Physical Changes ( Mild) Intake Problem Inadequate Oral Intake Etiology related to altered mental status, swallowing difficulty Signs/Symptoms as evidenced by current NPO status, 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 Clinical Problem Chronic Disease or Condition Related Malnutrition Etiology moderate, chronic malnutrition related to inadequate energy intake w/ advanced age Signs/Symptoms as evidenced by reported PO intake meeting <75% of estimated energy needs > 3 months, mild muscle wasting/ fat loss per physical exam Status Active Problem Recommendation Dietitian Recommendations/Changes recommend regular, no added salt diet- texture/consistency per ELECTROLYTIC DE SCALER; ensure plus high protein 120mL 4x/day w/ medpass when appropriate for PO intake given evidence of chronic malnutrition Lab / Micro Data 12/18/23 07:47 12/19/23 07:59 Labs: Laboratory Results - last 24 hr 12/18/23 15:35: Ur Random Sodium 11 12/19/23 07:59: Sodium 151 H, Potassium 3.6, Chloride 122 H, Carbon Dioxide 26.0, Anion Gap 3 L, BUN 27 H, Creatinine 1.60 H, Estim Creat Clear Calc 20.17, Est GFR (MDRD) Af Amer 39 L, Est GFR (MDRD) Non-Af 33 L, BUN/Creatinine Ratio 16.9, Glucose 152 H, Calcium 9.1 Micro: Microbiology 12/17/23 14:40 Fluid - Paracentesis (Abd) Gram Stain - Final 12/16/23 14:25 Mucosa - Nose SARS-CoV-2, Influenza & RSV (PCR) - Final RSV Physical Exam Const no apparent distress and average body habitus Constitutional Narrative: Elderly female, chronically ill-appearing, laying comfortably in bed, no acute distress. General Appearance: comfortable HEENT normocephalic, head/scalp atraumatic, hearing grossly normal bilaterally and nasal mucous membranes and turbinates normal HEENT Narrative: NG tube in place. Neck no lymphadenopathy and supple Lymph Lymphatic: no lymphadenopathy noted Chest inspection of chest normal Resp normal respiratory effort, normal air movement, no use of accessory muscles and clear to auscultation bilaterally Cardio regular rate, regular rhythm, no murmurs and peripheral pulses 2+ throughout GI normal to inspection, nondistended, normoactive bowel sounds, soft to palpation, non-tender and non-distended GI Narrative: Mildly distended, mild tenderness to palpation diffusely. Soft on palpation. Back/Spine normal ROM Extremity normal to inspection and no pedal edema Skin no rashes or lesions noted Neuro no focal motor deficits Assessment & Plan Assessment/Plan (1) RSV (acute bronchiolitis due to respiratory syncytial virus): (2) Constipation: (3) Toxic metabolic encephalopathy: (4) Ascites: QUALIFIERS: Ascites type: other type Qualified Code(s): R18.8 - Other ascites (5) Hyperammonemia: (6) KIESHA (acute kidney injury): (7) Debility: (8) Dysphagia: PLAN: Plan Patient is an 88-year-old female who presented to [facility] ED on 12/16/2023 from snf facility for altered mental status. 1. Acute toxic/metabolic encephalopathy secondary to hepatic encephalopathy; history of decompensated cirrhosis with recurrent ascites, esophagitis and jennifer l hypertensive gastropathy Presented from SNF with worsening encephalopathy. Suspect secondary to hepatic encephalopathy. Ammonia elevated from baseline. Unclear trigger of worsening encephalopathy. CT abdomen pelvis on admit showed moderate to severe cirrhotic morphology with underlying portal hypertension and moderate diffuse abdominal ascites, prominent stool within the rectum and sigmoid colon concerning for underlying ileus. S/p paracentesis on 12/17, labs consistent with transudative e ffusion, low concern for SBP based on cell count and differential, cultures pending. S/p EGD on 12/17 with grade a erosive esophagitis with no bleeding, portal hypertensive gastropathy. ? Gastroenterology following. NG tube in place. Has had good stool output with aggressive lactulose regimen of 40 g every 4 hours. Ammonia level improving. Appears to be getting dehydrated given hyponatremia and worsening KIESHA as noted below, will continue this regimen for today and de-escalate to lactulose 20 g 3 times daily on 12/20. Continue IV PPI twice daily, Flagyl, octreotide drip per GI recommendations. Overall, I do have concern for patient's long-term prognosis given decompensated cirrhosis, suspected hepatorenal syndrome and general debility. Will consult palliative care at this time for further recommendations. 2. KIESHA on CKD stage IIIb, concern for hepatorenal syndrome Developed KIESHA in 12/18 with creatinine 1.50, baseline creatinine 0.8-1.1. Seems most likely prerenal secondary to poor p.o. intake and GI losses in setting of aggressive lactulose regimen as noted above. However, also have concern for a degree of hepatorenal syndrome. Urine sodium 11 on 12/18. ? Creatinine 1.60 on 12/19. Very likely dehydrated given heavy lactulose regimen as noted above. Will give IV albumin every 6 hours scheduled for 8 doses for treatment of hepatorenal syndrome. Trend daily BMP. Giving free water through NG tube as noted below as well. Can consider nephrology consultation. Appreciate GI recommendations as well. 3. Hypernatremia, dehydration ? Sodium 151 on 12/19. Sodium 138 on admit, no previous history of hypernatremia. Presumed secondary to dehydration, poor PO intake. Will give 100 mL free water flushes every 4 hours today with administration of lactulose. Repeat BMP tomorrow. 4. Debility ? Recent hospitalization from 11/30 to 12/06 for a fall at home. Patient noted to have progressively worsening functional status in the weeks leading up to that hospitalization, in the setting of significant comorbidities including decompensated CARPENTER cirrhosis as noted above. Was discharged to [facility] ([facility]) after that hospitalization. PT/OT/case management consulted. Palliative care consult as noted above. 5. Dysphagia ? Speech therapy following, unable to complete evaluation to this point given patient's mental status. Continue NG tube for now. N.p.o. status. 6. Constipation, resolved ? CT abdomen pelvis on admit with significant constipation as noted above. Now with significant stool output on lactulose regimen. Continue treatment as above. 7. RSV infection ? RSV positive on admission. Stable on room air during admission. Supportive c are. 8. Enterococcus UTI ? UA infectious on admit. Urine culture with 80K-100K Enterococcus faecium. Switched from IV ceftriaxone to IV Levaquin on 12/18, plan to complete 5-day course of antibiotics, stop date 12/20. 9. Chronic anemia and thrombocytopenia ? Hemoglobin 11.4, platelets 138 on admission. Baseline hemoglobin 10-11, baseline platelets 90-140. Stable, trend daily CBC. 10. Moderate malnutrition ? Dietitian consulted. Currently n.p.o. as noted above. Recommend initiation of supplements once able to take p.o. diet. Chronic medical conditions: ? Hyperlipidemia: Continue home statin. ? Hypothyroidism: Continue home Synthroid. ? 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 DVT prophylaxis: Heparin subcu CODE STATUS: DNR CCA, DNI Expected disposition: TBD Total clinical time spent by myself addressing the patient's medical issues, reviewing all the data, and collaborating with patient's care team: 35 minutes. Charges/Coding Visit Charges Inpatient E&M: 94834 Subs Hosp L2
[2023-12-19] MEDS: Albumin Human 25% (100 mL) 25 GM/100 ML BAG IV ×3 (12:54→22:08)
[2023-12-19 15:30] VITALS: BP 113/58; PULSE 74; RESP 18; TEMP 36.6; O2SAT 95
[2023-12-19 16:00] VITALS: PULSE 74; RESP 18; O2SAT 95
[2023-12-19] MEDS: Latanoprost 0.005% 1 Bottle 1 DRP OPHTHALMIC (22:09)
[2023-12-19 22:54] VITALS: BP 104/58; PULSE 84; RESP 16; TEMP 36.4; O2SAT 93
[2023-12-20] VITALS (7 sets, daily range): BP systolic 102–114; BP diastolic 47–64; PULSE 68–80; RESP 18–20; TEMP 36.4–36.6; O2SAT 89–96; BMI 24.0
[2023-12-20] MEDS: metroNIDAZOLE 500 MG Tablet PO ×4 (00:47→22:01)
[2023-12-20] MEDS: Albumin Human 25% (100 mL) 25 GM/100 ML BAG IV ×4 (04:35→21:59)
[2023-12-20] MEDS: Octreotide 0.5 MG in Dextrose 5%-Water (250mL Bag) 250 ML 12.5 MG CONT INF (04:36)
[2023-12-20] MEDS: Nystatin Powder 15gm Bottle 1 APPLIC TOPICAL ×3 (04:52→22:09)
[2023-12-20 05:08] LABS: Anion Gap 4 (5-15); BUN 21 mg/dL (7-18); BUN/Creat Ratio 16.5 RATIO (10-20); Calcium,Total 8.8 mg/dL (8.5-10.1); Chloride 126 mmol/L (98-107); Creatinine, Serum 1.27 mg/dL (0.55-1.02); EST Glomerular Filtration Rate 42 mL/min (>60); Est Glom Filt Rate - Afr Amer 51 mL/min (>60); Estimated Creatinine Clearance 24.95 ml/min; Glucose 118 mg/dL (74-106); Sodium Level 154 mmol/L (136-145)
[2023-12-20] MEDS: Lactulose 20 GM/30 ML UDC PO ×3 (06:20→22:01)
[2023-12-20] MEDS: Levothyroxine 25 MCG TABLET GT (06:20)
--- NOTE | 2023-12-20 08:06 | PCM.PN.HOSP ---
Reason for Visit Reason for Visit: Diagnoses Disorder of urea cycle metabolism, unspecified (12/16/23) Other toxic encephalopathy (12/16/23) Acute bronchiolitis due to respiratory syncytial virus (12/16/23) Pleural effusion, not elsewhere classified (12/16/23) Constipation, unspecified (12/16/23) Acute kidney failure, unspecified (12/16/23) Dysphagia, unspecified (12/16/23) Other ascites (12/16/23) Other symptoms and signs involving the genitourinary system (12/16/23) Other malaise (12/16/23) Objective Data Objective Data Vital Signs: Vital Signs Temp Pulse Resp BP Pulse Ox O2 Del Method 97.9 F 80 18 109/64 93 Room Air 12/20/23 04:40 12/20/23 04:40 12/20/23 04:40 12/20/23 04:40 12/20/23 04:40 12/20/23 04:40 Oxygen Delivery Method Room Air Weight: 123 lb 7.342 oz Body Mass Index (BMI) 24.0 Intake & Output: Intake and Output for Last 24 Hours 12/18/23 12/19/23 12/20/23 23:59 23:59 23:59 Intake Total 771 / 771 1461 / 1461 643.13 / 643.13 Output Total 800 / 950 1100 / 1350 650 / 650 Balance -29 / -179 361 / 111 -6.87 / -6.87 Medical Nutrition Assessment Dietitian: Malnutrition Criteria Met Start: 12/17/23 07:52 Freq: Status: Active Protocol: Document 12/17/23 07:52 AG (Rec: 12/17/23 07:52 AG Other) Nutrition Malnutrition Evidence of Malnutrition Exists Yes Malnutrition (moderate): Chronic Evidenced By Suboptimal Energy Intake ( Moderate),Physical Changes ( Mild) Intake Problem Inadequate Oral Intake Etiology related to altered mental status, swallowing difficulty Signs/Symptoms as evidenced by current NPO status, 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 Clinical Problem Chronic Disease or Condition Related Malnutrition Etiology moderate, chronic malnutrition related to inadequate energy intake w/ advanced age Signs/Symptoms as evidenced by reported PO intake meeting <75% of estimated energy needs > 3 months, mild muscle wasting/ fat loss per physical exam Status Active Problem Recommendation Dietitian Recommendations/Changes recommend regular, no added salt diet- texture/consistency per GRAPHITE PAN DRIER TENDER; ensure plus high protein 120mL 4x/day w/ medpass when appropriate for PO intake given evidence of chronic malnutrition Lab / Micro Data 12/18/23 07:47 12/20/23 04:30 Labs: Laboratory Results - last 24 hr 12/19/23 07:59: Sodium 151 H, Potassium 3.6, Chloride 122 H, Carbon Dioxide 26.0, Anion Gap 3 L, BUN 27 H, Creatinine 1.60 H, Estim Creat Clear Calc 20.17, Est GFR (MDRD) Af Amer 39 L, Est GFR (MDRD) Non-Af 33 L, BUN/Creatinine Ratio 16.9, Glucose 152 H, Calcium 9.1 12/20/23 04:30: Sodium 154 H, Potassium 3.0 L, Chloride 126 H, Carbon Dioxide 24.0, Anion Gap 4 L, BUN 21 H, Creatinine 1.27 H, Estim Creat Clear Calc 24.95, Est GFR (MDRD) Af Amer 51 L, Est GFR (MDRD) Non-Af 42 L, BUN/Creatinine Ratio 16.5, Glucose 118 H, Calcium 8.8 Micro: Microbiology 12/17/23 14:40 Fluid - Paracentesis (Abd) Gram Stain - Final 12/17/23 14:40 Fluid - Paracentesis (Abd) Anaerobic Culture - Preliminary No growth in 48 hours. 12/16/23 14:25 Mucosa - Nose SARS-CoV-2, Influenza & RSV (PCR) - Final RSV Physical Exam Narrative Seen and examined. General: Incoherent/incomprehensible speech. Confused and disoriented. No meaningful interaction possible. HEENT:NG tube in place. Atraumatic, eyes closed, Normocephalic Oral: Oral oral mucosa dry. No Gingival or Mucosal Lesions/ Ulcerations Neck: Supple, No JVD, Negative Carotid Bruits Lungs: Air entry diminished in bilateral lung bases. No crepitation/rhonchi Cardiovascular: Regular rate, Regular Rhythm, muffled heart sounds. Abdomen: Bowel Sounds Present, Soft, mild tenderness, diffuse. Mild distention. : No renal angle tenderness. No suprapubic tenderness. Extremities: No edema, Capillary Refill Less than 3 Seconds Skin: No rashes, No breakdown Musculoskeletal: No Tenderness to Palpation of Joints or Extremities Neurological: Cranial nerves II-XII grossly intact, DTR 2+/4. Generalized encephalopathy, detailed neuroexam unobtainable Psych/Mental Status: Flat affect. Assessment & Plan Assessment/Plan (1) RSV (acute bronchiolitis due to respiratory syncytial virus): (2) Constipation: (3) Toxic metabolic encephalopathy: (4) Ascites: QUALIFIERS: Ascites type: other type Qualified Code(s): R18.8 - Other ascites (5) Hyperammonemia: (6) KIESHA (acute kidney injury): (7) Debility: (8) Dysphagia: PLAN: Plan Patient is an 88-year-old female who presented to [facility] ED on 12/16/2023 from longterm facility for altered mental status. 1. Acute toxic/metabolic encephalopathy secondary to hepatic encephalopathy; history of decompensated cirrhosis with recurrent ascites, esophagitis and portal hypertensive gastropathy Presented from SNF with worsening encephalopathy. Suspect secondary to hepatic encephalopathy. Ammonia elevated from baseline. Unclear trigger of worsening encephalopathy. CT abdomen pelvis on admit showed moderate to severe cirrhotic morphology with underlying portal hypertension and moderate diffuse abdominal ascites, prominent stool within the rectum and sigmoid colon concerning for underlying ileus. S/p paracentesis on 12/17, labs consistent with transudative effusion, low concern for SBP based on cell count and differential, cultures pending. S/p EGD on 12/17 with grade a erosive esophagitis with no bleeding, portal hypertensive gastropathy. Overall, I do have concern for patient's long-term prognosis given decompensated cirrhosis, suspected hepatorenal syndrome and general debility. Will consult palliative care at this time for further recommendations. 12/20: Palliative consult. Patient already on lactulose which was de-escalated due to dehydration. On Flagyl, octreotide drip and PPI. Generalized debility and poor functional capacity. GI following. Prognosis is guarded due to decompensated cirrhosis with hepatic encephalopathy, suspected hepatorenal syndrome and ascites 2. KIESHA on CKD stage IIIb, concern for hepatorenal syndrome Developed KIESHA in 12/18 with creatinine 1.50, baseline creatinine 0.8-1.1. Seems most likely prerenal secondary to poor p.o. intake and GI losses in setting of aggressive lactulose regimen as noted above. However, also have concern for a degree of hepatorenal syndrome. Urine sodium 11 on 12/18. ? Creatinine 1.60 on 12/19. Very likely dehydrated given heavy lactulose regimen as noted above. Will give IV albumin every 6 hours scheduled for 8 doses for treatment of hepatorenal syndrome. Trend daily BMP. 12/20: Free water through NG tube. Creatinine decreasing from 1.5, 1.6 -1.27. 3. Hypernatremia, dehydration ? Sodium 151 on 12/19. Sodium 138 on admit, no previous history of hypernatremia. Presumed secondary to dehydration, poor PO intake. Will give 100 mL free water flushes every 4 hours today with administration of lactulose. Repeat BMP tomorrow. 12/20 serum sodium increasing, from 143-151 and 154. 4. Debility ? Recent hospitalization from 11/30 to 12/06 for a fall at home. Patient noted to have progressively worsening functional status in the weeks leading up to that hospitalization, in the setting of significant comorbidities including decompensated CARPENTER cirrhosis as noted above. Was discharged to SNF ([facility]) after that hospitalization. PT/OT/case management consulted. Palliative care consult as noted above. 5. Dysphagia ? Speech therapy following, unable to complete evaluation to this point given patient's mental status. Continue NG tube for now. N.p.o. status. 6. Constipation, resolved ? CT abdomen pelvis on admit with significant constipation as noted above. Now with significant stool output on lactulose regimen. Continue treatment as above. 7. RSV infection ? RSV positive on admission. Stable on room air during admission. Supportive care. 8. Enterococcus UTI ? UA infectious on admit. Urine culture with 80K-100K Enterococcus faecium. Switched from IV ceftriaxone to IV Levaquin on 12/18, plan to complete 5-day course of antibiotics, stop date 12/20. 9. Chronic anemia and thrombocytopenia ? Hemoglobin 11.4, platelets 138 on admission. Baseline hemoglobin 10-11, baseline platelets 90-140. Stable, trend daily CBC. 10. Moderate malnutrition ? Dietitian consulted. Currently n.p.o. as noted above. Recommend initiation of supplements once able to take p.o. diet. Chronic medical conditions: ? Hyperlipidemia: Continue home statin. ? Hypothyroidism: Continue home Synthroid. ? 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 DVT prophylaxis: Heparin subcu CODE STATUS: DNR CCA, DNI Expected disposition: TBD Total clinical time spent by myself addressing the patient's medical issues, reviewing all the data, and collaborating with patient's care team: 35 minutes. Charges/Coding Visit Charges Inpatient E&M: 08299 Subs Hosp L2
[2023-12-20] MEDS: Potassium Chloride 40 MEQ in Dextrose 5%-Water (1000mL Bag) 1,000 ML 100 MEQ IV ×2 (09:56→21:43)
[2023-12-20] MEDS: Pantoprazole Sodium 40 MG in 0.9% Normal Saline (100mL MB+) 100 ML 330 MG IV ×2 (09:57→23:34)
[2023-12-20] MEDS: Acetaminophen 650 MG/20 ML UDC NG (09:57)
[2023-12-20] MEDS: BRIMONIDINE 0.2% 5ML BOTTLE 1 DRP EACH EYE ×2 (09:58→22:00)
[2023-12-20] MEDS: Timolol 0.5% 5ML OPTH.BTL 1 DRP EACH EYE ×2 (09:58→21:51)
[2023-12-20] MEDS: prednisoLONE eye drops (5 mL) 1 DROP OPTH.BTL 1 DRP OPHTHALMIC ×4 (09:58→22:00)
[2023-12-20] MEDS: Heparin Injection (Vial) 5,000 UNIT/ML VIAL 5000 UNIT SC ×2 (09:59→22:11)
[2023-12-20] MEDS: Menthol/Lanolin/Calamine/Znox 113 GM Tube 1 APPLIC TOPICAL ×4 (09:59→22:09)
[2023-12-20] MEDS: levoFLOXacin IV 750 MG/150 ML BAG 100 MG IV (11:40)
--- NOTE | 2023-12-20 12:14 | CASEMGMT ---
There was mention of Palliative and Hospice for patient. SW spoke with patient's grandson Kulwant and he said family is on board with Hospice, but the physician would need to call Elijah, patient's POA. SW notified physician that he would need to talk with Elijah to discuss Hospice. Cathy Cuevas POWER PLANT TECHNICIAN [employer]
[2023-12-20 14:18] LABS: Pathologist Comment/Body Fluid Reviewed
--- NOTE | 2023-12-20 14:42 | CASEMGMT ---
Physician spoke with patient's son Mir and family would like to talk with hospice. SW called patient's son Elijah and he said they would like hospice for patient. However, Elijah would like patient to be discharged back to [facility] ([facility]) on the hospice [facility] uses. SW checked with [facility] and they use [facility]. SW called [facility] and explained the situation. The individual on the phone asked that SW not send the referral until patient is ready to discharge back to [facility]. ([facility] [phone] Plan: d/c back to [facility] on [facility]. Cathy Cuevas COMPENSATION CONSULTANT [employer]
[2023-12-20] MEDS: Latanoprost 0.005% 1 Bottle 1 DRP OPHTHALMIC (22:00)
[2023-12-21] MEDS: Octreotide 0.5 MG in Dextrose 5%-Water (250mL Bag) 250 ML 12.5 MG CONT INF (02:56)
[2023-12-21 03:06] VITALS: BP 104/56; PULSE 67; RESP 18; TEMP 36.8; O2SAT 97
[2023-12-21] MEDS: Albumin Human 25% (100 mL) 25 GM/100 ML BAG IV (04:18)
[2023-12-21 05:32] VITALS: BMI 26.1
[2023-12-21] MEDS: Nystatin Powder 15gm Bottle 1 APPLIC TOPICAL (06:07)
[2023-12-21] MEDS: Lactulose 20 GM/30 ML UDC PO (06:07)
[2023-12-21] MEDS: metroNIDAZOLE 500 MG Tablet PO (06:07)
[2023-12-21] MEDS: Levothyroxine 25 MCG TABLET GT (06:07)
--- NOTE | 2023-12-21 07:41 | TREXTCAR_ITS ---
Diet Diet Order/Speech Therapy: 12/18/23 00:01 Diet: Nothing Per Oral Is pt able to select menu?: No Routine Orders/Code Status Suppository Type: Dulcolax 10mg Suppository Frequency: Daily PRN Code [facility] Wound(s) rt Lateral abdomen: Wound Type: Puncture R heel: Wound Type: Pressure Injury Therapies Extremity Affected:: Bilateral Lower Physical Therapy: Eval and Treat Occupational Therapy: Eval and Treat Speech Therapy: Eval and Treat Problem/Diagnosis (1) RSV (acute bronchiolitis due to respiratory syncytial virus): Status: Acute Code(s): J21.0 - Acute bronchiolitis due to respiratory syncytial virus (2) Constipation: Status: Acute Code(s): K59.00 - Constipation, unspecified (3) Toxic metabolic encephalopathy: Status: Acute Code(s): G92.8 - Other toxic encephalopathy (4) Ascites: Status: Acute Code(s): R18.8 - Other ascites (5) Hyperammonemia: Status: Acute Code(s): E72.20 - Disorder of urea cycle metabolism, unspecified (6) KIESHA (acute kidney injury): Status: Acute Code(s): N17.9 - Acute kidney failure, unspecified (7) Debility: Status: Acute Code(s): R53.81 - Other malaise (8) Dysphagia: Status: Acute Code(s): R13.10 - Dysphagia, unspecified Plan Patient is an 88-year-old female who presented to [facility] ED on 12/16/2023 from care home facility for altered mental status. 1. Acute toxic/metabolic encephalopathy secondary to hepatic encephalopathy; history of decompensated cirrhosis with recurrent ascites, esophagitis and portal hypertensive gastropathy Presented from SNF with worsening encephalopathy. Suspect secondary to hepatic encephalopathy. Ammonia elevated from baseline. Unclear trigger of worsening encephalopathy. CT abdomen pelvis on admit showed moderate to severe cirrhotic morphology with underlying portal hypertension and moderate diffuse abdominal ascites, prominent stool within the rectum and sigmoid colon concerning for underlying ileus. S/p paracentesis on 12/17, labs consistent with transudative effusion, low concern for SBP based on cell count and differential, cultures pending. S/p EGD on 12/17 with grade a erosive esophagitis with no bleeding, portal hypertensive gastropathy. Overall, I do have concern for patient's long-term prognosis given decompensated cirrhosis, suspected hepatorenal syndrome and general debility. Will consult palliative care at this time for further recommendations. 12/20: Palliative consult. Patient already on lactulose which was de-escalated due to dehydration. On Flagyl, octreotide drip and PPI. Generalized debility and poor functional capacity. GI following. Prognosis is guarded due to decompensated cirrhosis with hepatic encephalopathy, suspected hepatorenal syndrome and ascites 2. KIESHA on CKD stage IIIb, concern for hepatorenal syndrome Developed KIESHA in 12/18 with creatinine 1.50, baseline creatinine 0.8-1.1. Seems most likely prerenal secondary to poor p.o. intake and GI losses in setting of aggressive lactulose regimen as noted above. However, also have concern for a degree of hepatorenal syndrome. Urine sodium 11 on 12/18. ? Creatinine 1.60 on 12/19. Very likely dehydrated given heavy lactulose regimen as noted above. Will give IV albumin every 6 hours scheduled for 8 doses for t reatment of hepatorenal syndrome. Trend daily BMP. 12/20: Free water through NG tube. Creatinine decreasing from 1.5, 1.6 -1.27. 3. Hypernatremia, dehydration ? Sodium 151 on 12/19. Sodium 138 on admit, no previous history of hypernatremia. Presumed secondary to dehydration, poor PO intake. Will give 100 mL free water flushes every 4 hours today with administration of lactulose. Repeat BMP tomorrow. 12/20 serum sodium increasing, from 143-151 and 154. 4. Debility ? Recent hospitalization from 11/30 to 12/06 for a fall at home. Patient noted to have progressively worsening functional status in the weeks leading up to that hospitalization, in the setting of significant comorbidities including decompensated CARPENTER cirrhosis as noted above. Was discharged to SNF ([facility]) after that hospitalization. PT/OT/case management consulted. Palliative care consult as noted above. 5. Dysphagia ? Speech therapy following, unable to complete evaluation to this point given patient's mental status. Continue NG tube for now. N.p.o. status. 6. Constipation, resolved ? CT abdomen pelvis on admit with significant constipation as noted above. Now with significant stool output on lactulose regimen. Continue treatment as above. 7. RSV infection ? RSV positive on admission. Stable on room air during admission. Supportive care. 8. Enterococcus UTI ? UA infectious on admit. Urine culture with 80K-100K Enterococcus faecium. Switched from IV ceftriaxone to IV Levaquin on 12/18, plan to complete 5-day course of antibiotics, stop date 12/20. 9. Chronic anemia and thrombocytopenia ? Hemoglobin 11.4, platelets 138 on admission. Baseline hemoglobin 10-11, baseline platelets 90-140. Stable, trend daily CBC. 10. Moderate malnutrition ? Dietitian consulted. Currently n.p.o. as noted above. Recommend initiation of supplements once able to take p.o. diet. Chronic medical conditions: ? Hyperlipidemia: Continue home statin. ? Hypothyroidism: Continue home Synthroid. ? 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 DVT prophylaxis: Heparin subcu CODE STATUS: DNR CCA, DNI Expected disposition: TBD Total clinical time spent by myself addressing the patient's medical issues, reviewing all the data, and collaborating with patient's care team: 35 minutes. Allergies/Procedures Done in Hospital Allergies No Known Allergies Allergy (Verified 11/30/23 20:27) Type of Care/Length of Stay Estimated LOS: Convalescent Care Less Than 30 days Type of Care Needed: Skilled Rehab Potential: Good Prognosis: Good Additional Orders/Day of Discharge Day of Discharge: 12/21/23 Dietary and Speech Recommendations Dietitian Recommendations/Changes: 1.) PO as indicated. Recommend regular, no added salt diet- texture/consistency per FARM MANAGEMENT PROFESSOR; ensure plus high protein 120mL 4x/day w/ medpass when appropriate for PO intake given evidence of chronic malnutrition. 2.) In view of extended NPO, recommend enteral nutrition support via NG tube to start with Jevity 1.5 Kg @ 10mL/hr and increase rate as tolerated by 10mL/hr Q 8-12 hours until goal rate 40mL/hr achieved. Flush with 120mL water Q 4 hours. TF at goal rate and water flushes will provide 1440 kcal, 61.3 gm pro and 1450 mL/ free water per day. Discharge Plan Admission Admit Date/Time: 12/16/23 18:19 Primary Reason for Your Visit: Decompensated cirrhosis, ascites, pleural effusion Attending Provider: Duke Dee Primary Care Provider: Robin Mandujano Consulting Providers: Bibi Dong; Ernesto Manzo; Ramiro Alaniz Anneliese Martini; Kenia Barajas; Zoraida Haro MUSIC ASSISTANT; Pola Parsons Instructions Patient Instructions: THEO SINGH Paracentesis Dc Additional Instructions / Restrictions: Increase the frequency of lactulose solution to have a goal of 2-3 soft bowel movements per day. Patient will be going to hospice inpatient facility. Discharge Orders/Prescriptions Prescriptions: New amoxicillin 500 mg tablet 500 mg PO TID 3 Days Qty: 9 0RF Continued spironolactone [Aldactone] 50 mg tablet 50 mg PO DAILY Vitamin B-6 50 mg capsule 100 mg PO DAILY levothyroxine [Euthyrox] 25 mcg tablet 25 mcg PO DAILY atorvastatin 40 mg tablet 40 mg PO DAILY ergocalciferol (vitamin D2) 1,250 mcg (50,000 unit) capsule 1,250 mcg PO QWEEK bisacodyl [Dulcolax (bisacodyl)] 5 mg tablet,delayed release (DR/EC) 10 mg PO DAILY latanoprost 0.005 % drops 1 drp ophthalmic (eye) QPM Rx Instructions: INSTILL ONE DROP INTO THE LEFT EYE ONCE EVERY EVENING. brimonidine-timolol 0.2-0.5 % drops 1 drp ophthalmic (eye) BID Rx Instructions: INSTILL ONE DROP INTO EACH EYE TWICE DAILY. Xifaxan 550 mg Tablet 550 mg PO BID 30 Days Qty: 60 0RF lactulose 20 gram/30 mL Solution 10 g PO BID 30 Days Qty: 900 0RF Ensure Plus High Protein 0.08 gram-1.5 kcal/mL Liquid 120 ml PO 4X/DAY 30 Days Qty: 30 0RF prednisolone acetate 1 % drops,suspension 1 drp ophthalmic (eye) 4X/DAY Rx Instructions: INSTILL ONE DROP INTO RIGHT EYE FOUR TIMES A DAY. Referrals / Follow Up: Robin Mandujano MD [Primary Care Provider] - Disposition Disposition (needs filled in before D/C Order can be placed): Hospice in Medical Facility (4) Ascites Qualifiers: Ascites type: other type Qualified Code(s): R18.8 - Other ascites
--- NOTE | 2023-12-21 07:50 | PCM.DC.SUM ---
Providers Date of Admission: 12/16/23 Date of Discharge: 12/21/23 Primary Care Physician: Dr. Robin Mandujano MD Consultations 12/16/23 19:51 Consult: Gastroenterology Routine Consulting Provider: [facility] Reason for Consult: cirrhosis EMERGENT Consult: No Notified: Yes Date Notified: 12/16/23 Time Notified: 18:23 Method of Notification: ED Physician Initiated 12/19/23 11:40 Consult: Hospice / Palliative Care Routine Consulting Provider: [facility] Reason for Consult: Decompensated cirrhosis, suspected HRS, poor functional status EMERGENT Consult: No Notified: Yes Date Notified: 12/19/23 Time Notified: 14:06 Method of Notification: Answering Service Reason For Visit: TOXIC/METABOLIC ENCEPHALOPATHY Diagnosis Discharge Diagnosis (1) RSV (acute bronchiolitis due to respiratory syncytial virus): Status: Acute Code(s): J21.0 - Acute bronchiolitis due to respiratory syncytial virus (2) Constipation: Status: Acute Code(s): K59.00 - Constipation, unspecified (3) Toxic metabolic encephalopathy: Status: Acute Code(s): G92.8 - Other toxic encephalopathy (4) Ascites: Status: Acute Code(s): R18.8 - Other ascites Qualifiers: Ascites type: other type Qualified Code(s): R18.8 - Other ascites (5) Hyperammonemia: Status: Acute Code(s): E72.20 - Disorder of urea cycle metabolism, unspecified (6) KIESHA (acute kidney injury): Status: Acute Code(s): N17.9 - Acute kidney failure, unspecified (7) Debility: Status: Acute Code(s): R53.81 - Other malaise (8) Dysphagia: Status: Acute Code(s): R13.10 - Dysphagia, unspecified Plan Patient is an 88-year-old female who presented to [facility] ED on 12/16/2023 from longterm facility for altered mental status. 1. Acute toxic/metabolic encephalopathy secondary to hepatic encephalopathy; history of decompensated cirrhosis with recurrent ascites, esophagitis and portal hypertensive gastropathy Presented from SNF with worsening encephalopathy. Suspect secondary to hepatic encephalopathy. Ammonia elevated from baseline. Unclear trigger of worsening encephalopathy. CT abdomen pelvis on admit showed moderate to severe cirrhotic morphology with underlying portal hypertension and moderate diffuse abdominal ascites, prominent stool within the rectum and sigmoid colon concerning for underlying ileus. S/p paracentesis on 12/17, labs consistent with transudative effusion, low concern for SBP based on cell count and differential, cultures pending. S/p EGD on 12/17 with grade a erosive esophagitis with no bleeding, portal hypertensive gastropathy. Overall, I do have concern for patient's long-term prognosis given decompensated cirrhosis, suspected hepatorenal syndrome and general debility. Will consult palliative care at this time for further recommendations. 12/20: Palliative consult. Patient already on lactulose which was de-escalated due to dehydration. On Flagyl, octreotide drip and PPI. Generalized debility and poor functional capacity. GI following. Prognosis is guarded due to decompensated cirrhosis with hepatic encephalopathy, suspected hepatorenal syndrome and ascites 12/21: Discussed with the patient's son, Mr. Elijah Silva, his and other son Mr. Mir Silva and discussed about inpatient hospice care. They agreed that patient would not go inpatient hospice service with NG tube. It will be a comfort care had full assessment of swallow will also will be done including videofluoroscopy/MBS. 2. KIESHA on CKD stage IIIb, concern for hepatorenal syndrome Developed KIESHA in 12/18 with creatinine 1.50, baseline creatinine 0.8-1.1. Seems most likely prerenal secondary to poor p.o. intake and GI losses in setting of aggressive lactulose regimen as noted above. However, also have concern for a degree of hepatorenal syndrome. Urine sodium 11 on 12/18. ? Creatinine 1.60 on 12/19. Very likely dehydrated given heavy lactulose regimen as noted above. Will give IV albumin every 6 hours scheduled for 8 doses for treatment of hepatorenal syndrome. Trend daily BMP. 12/20: Free water through NG tube. Creatinine decreasing from 1.5, 1.6 -1.27. 12/21: It was decided for no further labs. 3. Hypernatremia, dehydration ? Sodium 151 on 12/19. Sodium 138 on admit, no previous history of hypernatremia. Presumed secondary to dehydration, poor PO intake. Will give 100 mL free water flushes every 4 hours today with administration of lactulose. Repeat BMP tomorrow. 12/20 serum sodium increasing, from 143-151 and 154. 4. Debility ? Recent hospitalization from 11/30 to 12/06 for a fall at home. Patient noted to have progressively worsening functional status in the weeks leading up to that hospitalization, in the setting of significant comorbidities including decompensated CARPENTER cirrhosis as noted above. Was discharged to SNF ([facility]) after that hospitalization. PT/OT/case management consulted. Palliative care consult as noted above. 5. Dysphagia ? Speech therapy following, unable to complete evaluation to this point given patient's mental status. Continue NG tube for now. N.p.o. status. 6. Constipation, resolved ? CT abdomen pelvis on admit with significant constipation as noted above. Now with significant stool output on lactulose regimen. Continue treatment as above. 7. RSV infection ? RSV positive on admission. Stable on room air during admission. Supportive care. 8. Enterococcus UTI ? UA infectious on admit. Urine culture with 80K-100K Enterococcus faecium. Switched from IV ceftriaxone to IV Levaquin on 12/18, plan to complete 5-day course of antibiotics, 12/21: Initially patient had ceftriaxone which was changed to Levaquin as per sensitivity and culture of Enterococcus faecium. 3 more days of oxacillin 500 mg 3 times daily given. 9. Chronic anemia and thrombocytopenia ? Hemoglobin 11.4, platelets 138 on admission. Baseline hemoglobin 10-11, baseline platelets 90-140. Stable, trend daily CBC. 10. Moderate malnutrition ? Dietitian consulted. Currently n.p.o. as noted above. Recommend initiation of supplements once able to take p.o. diet. Chronic medical conditions: ? Hyperlipidemia: Continue home statin. ? Hypothyroidism: Continue home Synthroid. ? 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 DVT prophylaxis: Heparin subcu The CODE STATUS was changed to DNR CC with hospice care on 12/18/2023 after discussion with patient's both son, Mr. Elijah Silva, his and other son Mr. Mir Silva. Patient is being transferred to half-way to be followed by hospice of [facility] there. Medications at Discharge Home Medications atorvastatin 40 mg tablet 40 mg PO DAILY CHOLESTEROL 11/30/23 bisacodyl 5 mg tablet,delayed release (Dulcolax (bisacodyl)) 10 mg PO DAILY CONSTIPATION 11/30/23 ergocalciferol (vitamin D2) 1,250 mcg (50,000 unit) capsule 1,250 mcg PO QWEEK SUPPLEMENT 11/30/23 latanoprost 0.005 % eye drops 1 drp ophthalmic (eye) QPM GLAUCOMA 11/30/23 levothyroxine 25 mcg tablet (Euthyrox) 25 mcg PO DAILY THYROID 11/30/23 pyridoxine (vitamin B6) 50 mg capsule (Vitamin B-6) 100 mg PO DAILY SUPPLEMENT 11/30/23 spironolactone 50 mg tablet (Aldactone) 50 mg PO DAILY BLOOD PRESSURE 11/30/23 brimonidine 0.2 %-timolol 0.5 % eye drops 1 drp ophthalmic (eye) BID GLAUCOMA 12/02/23 food supplemt, lactose-reduced 0.08 gram-1.5 kcal/mL oral liquid (Ensure Plus High Protein) 120 ml PO 4X/DAY SUPPLEMENT 30 days #30 mL 12/06/23 lactulose 20 gram/30 mL oral solution 10 g (15 mL) PO BID CONSTIPATION 30 days #900 mL 12/06/23 rifaximin 550 mg tablet (Xifaxan) 550 mg PO BID ANTIDIARRHEAL 30 days #60 tabs 12/06/23 prednisolone acetate 1 % eye drops,suspension 1 drp ophthalmic (eye) 4X/DAY SWELLING/REDNESS 12/16/23 amoxicillin 500 mg tablet 500 mg PO TID 3 days #9 tabs 12/21/23 Physical Exam Narrative Seen and examined. Patient is still moaning, incomprehensible sound. Awake but eyes closed. Talk to the patient's both son and [id number] on 12/20/2023. Physical exam General: Incoherent/incomprehensible speech. Confused and disoriented. HEENT:NG tube in place. Atraumatic, eyes closed, Normocephalic Oral: Oral oral mucosa dry. No Gingival or Mucosal Lesions/ Ulcerations Neck: Supple, No JVD, Negative Carotid Bruits Lungs: Air entry diminished in bilateral lung bases. No crepitation/rhonchi Cardiovascular: Regular rate, Regular Rhythm, muffled heart sounds. Abdomen: Bowel Sounds Present, Soft, mild tenderness, diffuse. Mild distention. : No renal angle tenderness. No suprapubic tenderness. Extremities: No edema, Capillary Refill Less than 3 Seconds Skin: No rashes, No breakdown Musculoskeletal: No Tenderness to Palpation of Joints or Extremities Neurological: Cranial nerves II-XII grossly intact, DTR 2+/4. Generalized encephalopathy, detailed neuroexam unobtainable Psych/Mental Status: Flat affect. Medical Records Data Medical Nutrition Assessment Dietitian: Malnutrition Criteria Met Start: 12/17/23 07:52 Freq: Status: Active Protocol: Document 12/20/23 12:06 RMA (Rec: 12/20/23 12:06 RMA [email or web address]) Nutrition Malnutrition Evidence of Malnutrition Exists Yes Malnutrition (moderate): Chronic Evidenced By Suboptimal Energy Intake ( Moderate),Physical Changes ( Mild) Intake Problem Inadequate Oral Intake Etiology related to altered mental status, swallowing difficulty Signs/Symptoms as evidenced by extended NPO status, reported no PO intake MANAGER IN HOME Status Active Problem Clinical Problem Chronic Disease or Condition Related Malnutrition Etiology moderate, chronic malnutrition related to inadequate energy intake w/ advanced age Signs/Symptoms as evidenced by reported PO intake meeting <75% of estimated energy needs > 3 months, mild muscle wasting/ fat loss per physical exam Status Active Problem Recommendation Dietitian Recommendations/Changes 1.) PO as indicated. Recommend regular, no added salt diet- texture/consistency per MID LEVEL NET DEVELOPER; ensure plus high protein 120mL 4x/day w/ medpass when appropriate for PO intake given evidence of chronic malnutrition. 2.) In view of extended NPO, recommend enteral nutrition support via NG tube to start with Jevity 1.5 Kg @ 10mL/hr and increase rate as tolerated by 10mL/hr Q 8-12 hours until goal rate 40mL/hr achieved. Flush with 120mL water Q 4 hours. TF at goal rate and water flushes will provide 1440 kcal, 61.3 gm pro and 1450 mL/ free water per day. Weight / BMI Weight Weight: 133 lb 13.129 oz Body Mass Index (BMI) 26.1 ABG / Lab / Microbiology Data 12/18/23 07:47 12/20/23 04:30 Laboratory: Laboratory Results - last 24 hr 12/17/23 14:40: Fl Pathologist Comment Reviewed Microbiology: Microbiology 12/17/23 14:40 Fluid - Paracentesis (Abd) Gram Stain - Final 12/17/23 14:40 Fluid - Paracentesis (Abd) Body Fluid Culture - Final Culture exhibits no growth. 12/17/23 14:40 Fluid - Paracentesis (Abd) Anaerobic Culture - Preliminary No growth in 48 hours. 12/16/23 14:25 Mucosa - Nose SARS-CoV-2, Influenza & RSV (PCR) - Final RSV Meaningful Use Info Meaningful Use Diagnoses (Choose all that apply): None applicable Discharge Plan Admission Admit Date/Time: 12/16/23 18:19 Primary Reason for Your Visit: Decompensated cirrhosis, ascites, pleural effusion Attending Provider: Duke Dee Primary Care Provider: Robin Mandujano Consulting Providers: Bibi Dong; Ernesto Manzo; Ramiro Alaniz; Anneliese Martini; Kenia Barajas; Zoraida Haro NP; Pola Parsons Instructions Patient Instructions: THEO RN Paracentesis Dc Additional Instructions / Restrictions: Increase the frequency of lactulose solution to have a goal of 2-3 soft bowel movements per day. Patient will be going to hospice inpatient facility. Discharge Orders/Prescriptions Prescriptions: New amoxicillin 500 mg tablet 500 mg PO TID 3 Days Qty: 9 0RF Continued spironolactone [Aldactone] 50 mg tablet 50 mg PO DAILY Vitamin B-6 50 mg capsule 100 mg PO DAILY levothyroxine [Euthyrox] 25 mcg tablet 25 mcg PO DAILY atorvastatin 40 mg tablet 40 mg PO DAILY ergocalciferol (vitamin D2) 1,250 mcg (50,000 unit) capsule 1,250 mcg PO QWEEK bisacodyl [Dulcolax (bisacodyl)] 5 mg tablet,delayed release (DR/EC) 10 mg PO DAILY latanoprost 0.005 % drops 1 drp ophthalmic (eye) QPM Rx Instructions: INSTILL ONE DROP INTO THE LEFT EYE ONCE EVERY EVENING. brimonidine-timolol 0.2-0.5 % drops 1 drp ophthalmic (eye) BID Rx Instructions: INSTILL ONE DROP INTO EACH EYE TWICE DAILY. Xifaxan 550 mg Tablet 550 mg PO BID 30 Days Qty: 60 0RF lactulose 20 gram/30 mL Solution 10 g PO BID 30 Days Qty: 900 0RF Ensure Plus High Protein 0.08 gram-1.5 kcal/mL Liquid 120 ml PO 4X/DAY 30 Days Qty: 30 0RF prednisolone acetate 1 % drops,suspension 1 drp ophthalmic (eye) 4X/DAY Rx Instructions: INSTILL ONE DROP INTO RIGHT EYE FOUR TIMES A DAY. Referrals / Follow Up: Robin Mandujano MD [Primary Care Provider] - Disposition Disposition (needs filled in before D/C Order can be placed): Hospice in Medical Facility Charges/Coding Visit Charges Inpatient E&M: 04541 Disch Hosp >30min
--- NOTE | 2023-12-21 08:46 | CASEMGMT ---
Addendum entered by Cathy Cuevas 12/21/23 09:40: DOROTHEA called [facility] and spoke with Deborah. Deborah confirmed they received the referral and [facility] also sent a referral. Cathy HARPER Original Note: Patient is ready for discharge back to [facility] ([facility]). DOROTHEA faxed a referral to [facility]. DOROTHEA will also call and follow up. Plan: d/c back to [facility] under intermediate level of care. A referral was made to [facility] at discharge. Cathy HARPER
--- NOTE | 2023-12-21 09:01 | NURSING ---
0845-pt handed off to Cachorro SINGH
[2023-12-21 10:00] VITALS: BP 121/61; PULSE 64; RESP 20; TEMP 36.6; O2SAT 99
[2023-12-21] MEDS: 0.9% Saline Lock 10 ML Syringe IV (10:01)
[2023-12-21] MEDS: BRIMONIDINE 0.2% 5ML BOTTLE 1 DRP EACH EYE (10:01)
[2023-12-21] MEDS: Timolol 0.5% 5ML OPTH.BTL 1 DRP EACH EYE (10:02)
[2023-12-21] MEDS: prednisoLONE eye drops (5 mL) 1 DROP OPTH.BTL 1 DRP OPHTHALMIC (10:02)
[2023-12-21] MEDS: Menthol/Lanolin/Calamine/Znox 113 GM Tube 1 APPLIC TOPICAL (10:04)
--- NOTE | 2023-12-21 10:29 | CASEMGMT ---
Discharge Planning Discharge orders, signed med list, covid results, and transport time sent to [facility] via [facility]. Physicians will transport patient by cot at 10:30. Nursing, SW, and patients son updated. Daina Georges, Discharge Planning Asst.
== END 2023-12-21 10:56 | disposition hospice, inpatient (51) | DRG 441 ==
LOC: ED 17:30 → PCU 18:31
PROVIDERS: Hospitalist; Internal Medicine; Internal Medicine Gastroenterology; Admitting Provider Internal Medicine; Emergency Provider Student in an Organized Health Care Education/Training Program; PCP Family Medicine; Referring Provider Student in an Organized Health Care Education/Training Program; Visit Provider Internal Medicine
PROC: 0DJ08ZZ Inspection of Upper Intestinal Tract, Via Natural or Artificial Opening Endoscopic (ICD-10-PCS; CPT 43235; principal; 2023-12-17 11:25)
DX: K76.82 Hepatic encephalopathy (principal); K76.7 Hepatorenal syndrome; G92.8 Other toxic encephalopathy; E44.0 Moderate protein-calorie malnutrition; E87.0 Hyperosmolality and hypernatremia; J21.0 Acute bronchiolitis due to respiratory syncytial virus; N17.9 Acute kidney failure, unspecified; K76.6 Portal hypertension; J90 Pleural effusion, not elsewhere classified; R18.8 Other ascites; N39.0 Urinary tract infection, site not specified; K22.10 Ulcer of esophagus without bleeding; D69.6 Thrombocytopenia, unspecified; D63.1 Anemia in chronic kidney disease; N18.32 Chronic kidney disease, stage 3b; K74.69 Other cirrhosis of liver; E03.9 Hypothyroidism, unspecified; K59.00 Constipation, unspecified; K75.81 Nonalcoholic steatohepatitis (NASH); E55.9 Vitamin D deficiency, unspecified; E78.5 Hyperlipidemia, unspecified; E86.0 Dehydration; E87.6 Hypokalemia; B95.2 Enterococcus as the cause of diseases classified elsewhere; R53.81 Other malaise; H54.8 Legal blindness, as defined in USA; X58.XXXA Exposure to other specified factors, initial encounter; Z66 Do not resuscitate; Z68.26 Body mass index [BMI] 26.0-26.9, adult; Z79.899 Other long term (current) drug therapy
CPT/HCPCS: 36415; 49083; 51702; 70450; 72125; 74018; 74177; 80048; 80053; 80076; 81001; 82140; 82945; 83615; 83690; 83735; 84100; 84157; 84300; 84484; 85025; 85610; 87070; 87075; 87205; 87631; 87811; 88108; 88305; 88313; 89050; 92610; 97802; 99252; 99285; J7030; J7040; J7120; P9047; Q9967; A4216; G0463; J2405